=== PATIENT | male | born 1955 | race Caucasian/White ===

== ENCOUNTER → 2017-08-10 | Outpatient (CLI) | payer OTHER ==
[~2017-08-10] MED LIST: ALD2525 PO; ASCA500 PO; ASPEC325 PO; CHOL400C7 PO; CRG125 PO; DVN80 PO; FISHOIL PO; FLM4 PO; HYDR-1838 PO; MULT-506 PO; VITA400C3 PO
--- NOTE | 2017-08-10 13:45 | DIAGNOSTIC IMAGING REPORT ---
(RENAL)RETROPERITON COMP CLINICAL HISTORY: 62 years-old Male presenting with N40.1 BPH with obstruction/lower urinary tract [id number] TECHNIQUE: Real-time grayscale and limited color Doppler ultrasound imaging of the kidneys and bladder was performed. COMPARISON: None. FINDINGS: Evaluation degraded by patient body habitus. Right kidney: Normal echogenicity. Right kidney measures 13.6 cm. No hydronephrosis. No convincing evidence of calculus or mass. Normal perfusion. Left kidney: Normal echogenicity. Left kidney measures 16.1 cm. No hydronephrosis. Subcentimeter cyst noted at the lower pole. Normal perfusion. Bladder: Trabeculated bladder wall with a focal site of irregular polypoid thickening with internal color Doppler flow. This polypoid mass measures 2.4 x 1.8 x 2.4 cm. Bilateral ureteral jets preserved. Other: Hyperechogenic liver parenchyma indicative of hepatic steatosis. IMPRESSION: 1. Polypoid bladder mass with internal vascular flow highly concerning for neoplasm. Urologic consultation for direct visualization with cystoscopy recommended. 2. No obstruction. 3. Hepatic steatosis. The report will be called/faxed according to standard departmental protocol. Electronically signed by: Jerel Rivera M.D. 08/10/2017 1:44 PM Dictated Date/Time: 08/10/2017 1:41 PM
== END | disposition home or self-care (01) ==
LOC: C.ULTR 12:43
PROVIDERS: ATTEND Urology
DX: N40.1 Benign prostatic hyperplasia with lower urinary tract symptoms (principal); R33.9 Retention of urine, unspecified; N32.9 Bladder disorder, unspecified; K76.0 Fatty (change of) liver, not elsewhere classified

== ENCOUNTER → 2017-08-11 | Outpatient (CLI) | payer OTHER ==
[~2017-08-11] MED LIST changes: +OPTIRAY 320 IV PRN
--- NOTE | 2017-08-11 15:03 | DIAGNOSTIC IMAGING REPORT ---
CT UROGRAM CLINICAL HISTORY: Follow-up abnormal ultrasound. Bladder mass. COMPARISON STUDY: Renal ultrasound dated 08/10/2017. TECHNIQUE: Before and following the IV administration of 120 cc of Optiray 320, CT urogram of the abdomen and pelvis is performed from the lung bases to the proximal femora. Images are reviewed in the axial, sagittal, and coronal planes. IV contrast was administered without complication. A dose lowering technique was utilized adhering to the principles of ALARA. The examination is degraded by large body habitus, and by streak artifact from the body wall abutting the CT gantry. CT DOSE: 2527.74 mGycm FINDINGS: Lung bases: The heart is normal in size and without pericardial effusion. The lung bases are clear. There is a small hiatal hernia. Liver: The contrast-enhanced liver is enlarged, measuring 22 cm in length. The liver demonstrates diffusely diminished attenuation consistent with hepatic steatosis. Fatty sparing is seen adjacent to gallbladder fossa. Calcified granulomas are noted in the right hepatic lobe. There is no intrahepatic biliary ductal dilatation. The hepatic veins and portal veins are patent. Gallbladder: Unremarkable. Spleen: Normal in size and attenuation. Pancreas: Unremarkable. Adrenal glands: Unremarkable. Kidneys and ureters: The contrast enhanced kidneys are normal in size and without hydronephrosis. There are no renal calculi identified on the unenhanced images. The kidneys enhance and excrete symmetrically. There is no enhancing renal cortical mass lesion identified. A partially exophytic subcentimeter cortical hypodensity arising from the interpolar right kidney likely represents a cyst but is too small for definitive characterization. 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 There is no evidence of urothelial lesion within the renal pelvis bilaterally or along the course of either ureter. Abdominal vasculature: The abdominal aorta is normal in course and caliber noting mild atherosclerotic calcification. Bowel: The small bowel and colon are normal in course and caliber. The appendix is well-visualized and normal. Peritoneum: There is no intraperitoneal free air or abdominal ascites. There is a fat-containing umbilical hernia. Lymphadenopathy: None. Pelvic viscera: The prostate gland is mildly enlarged and heterogeneous, measuring 5.4 cm in transverse diameter. The bladder is distended. The bladder wall appears thickened and trabeculated consistent with chronic outlet obstruction. Asymmetric posterior bladder wall thickening suggested. There is a 2.7 cm focus of nodularity seen within the posterior base of the bladder on axial image #117. Skeletal structures: The skeletal structures are osteopenic. There is mild to moderate lumbosacral spondylosis. Sclerotic change is noted in the sacroiliac joints and pubic symphysis. No lytic or blastic lesions are seen. IMPRESSION: 1. There is prostatomegaly with evidence of chronic bladder outlet obstruction. 2. Asymmetric posterior bladder wall thickening is suggested, and there is a 2.7 cm focus of intraluminal nodularity seen at the posterior base of the bladder. This is located at the top of the prostate gland, and could represent median lobe hypertrophy versus a urothelial neoplasm. Correlation with cystoscopy is recommended. 3. There is no enhancing renal cortical mass, and no evidence of urothelial lesion involving the renal pelvis bilaterally or the ureters. 4. 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 5. No renal calculi are identified. 6. Hepatomegaly and severe hepatic steatosis. 7. Additional findings as above. Electronically signed by: Tj Anderson M.D. 08/11/2017 3:01 PM Dictated Date/Time: 08/11/2017 2:41 PM
== END | disposition home or self-care (01) ==
LOC: C.CTS 13:02
PROVIDERS: ATTEND Nurse Practitioner Family
DX: N32.89 Other specified disorders of bladder (principal)

== ENCOUNTER → 2017-08-13 | Outpatient (CLI) | payer OTHER ==
[~2017-08-13] MED LIST changes: +ADAL40KI SQ; +ASPI81TA28 PO; +CARV12.5 PO; +DUTA0.5C PO; +FIBER PO; +LOSA1TAB38 PO; +METF1TAB53 PO; -OPTIRAY 320 IV PRN; +SPIR1TAB72 PO; +TAMS0.4C38 PO
[2017-08-13 12:31] LABS: BLOOD UREA NITROGEN 12 mg/dl (7-18); BUN/CREATININE RATIO 16.6 (10-20); CREATININE 0.73 mg/dl (0.60-1.40)
== END | disposition home or self-care (01) ==
LOC: C.LAB 10:26
PROVIDERS: ATTEND Nurse Practitioner Family
DX: N32.89 Other specified disorders of bladder (principal)

== ENCOUNTER 2017-09-02 10:55 | Day surgery (SDC) | payer OTHER ==
[2017-08-16 14:49] VITALS: BMI 46.0
--- NOTE | 2017-08-16 15:09 | PAT Medication Instructions ---
Service Date Aug 16, 2017. Current Home Medication List Adalimumab (Humira Pen), 40 MG SQ Q2 WK Aspirin (Aspirin Ec), 81 MG PO QAM Carvedilol (Coreg), 12.5 MG PO QAM Dutasteride (Avodart), 0.5 MG PO QAM Fiber Laxative (Fiber Laxative), 1 TAB PO QAM Hctz/Spironolactone (Spironolactone/Hydrochlor 25-25 mg), 1 TAB PO QAM Losartan Potassium (Cozaar), 100 MG PO QAM Metformin Hcl (Glucophage Ext Rel), 1,000 MG PO BID Multivitamin (Multivitamin), 1 TAB PO QAM Tamsulosin Hcl (Flomax), 0.4 MG PO QAM Medication Instructions For Your Scheduled Surgery - Continue as directed: Adalimumab (Humira Pen), 40 MG SQ Q2 WK - Hold the following medications 10 days prior to surgery per surgeon's instructions: Aspirin (Aspirin Ec), 81 MG PO QAM - Hold the following medications 48 hours prior to surgery: Metformin Hcl (Glucophage Ext Rel), 1,000 MG PO BID - Hold the following medications the morning of surgery: Fiber Laxative (Fiber Laxative), 1 TAB PO QAM Hctz/Spironolactone (Spironolactone/Hydrochlor 25-25 mg), 1 TAB PO QAM Losartan Potassium (Cozaar), 100 MG PO QAM Multivitamin (Multivitamin), 1 TAB PO QAM - Take the following medications the morning of surgery with a sip of water OTHERWISE NOTHING TO EAT OR DRINK AFTER MIDNIGHT: Tamsulosin Hcl (Flomax), 0.4 MG PO QAM Carvedilol (Coreg), 12.5 MG PO QAM Dutasteride (Avodart), 0.5 MG PO QAM If you have any questions please call us at [phone] or [phone] or [phone]
--- NOTE | 2017-08-16 16:07 | DIAGNOSTIC IMAGING REPORT ---
TWO VIEW CHEST CLINICAL HISTORY: Preoperative examination. FINDINGS: PA and lateral chest radiographs are obtained. No prior studies are available for comparison at the time of dictation. The cardiomediastinal silhouette is unremarkable. The lungs and pleural spaces are clear. There is no pneumothorax. The skeletal structures are osteopenic. Degenerative change and hyperkyphosis are noted in the thoracic spine. IMPRESSION: No active disease in the chest. Electronically signed by: Tj Anderson M.D. 08/16/2017 4:05 PM Dictated Date/Time: 08/16/2017 4:05 PM
[2017-08-16 16:09] LABS: BASO % 0.2 %; BASO ABS # 0.02 K/uL (0-0.2); COMPLETE YES; EOS % 4.5 %; HEMATOCRIT 37.8 % (42-52); IG% 0.4 %; LYMPH % 23.1 %; LYMPH ABS # 2.11 K/uL (1.2-3.4); MEAN CORPUSCULAR HEMOGLOBIN 31.9 pg (25-34); MEAN CORPUSCULAR HGB CONC 35.4 g/dl (32-36); MEAN PLATELET VOLUME 9.5 fL (7.4-10.4); MONO % 6.7 %; NEUT % 65.1 %; PLATELET COUNT 223 K/uL (130-400); WHITE BLOOD COUNT 9.14 K/uL (4.8-10.8)
[2017-08-16 16:15] LABS: URINE APPEARANCE CLEAR (CLEAR); URINE BILIRUBIN NEG (NEG); URINE COLOR YELLOW; URINE EPITHELIAL CELL AUTO 0-5 /lpf (0-5); URINE NITRITE NEG (NEG); URINE PH 6.5 (4.5-7.5); URINE SPECIFIC GRAVITY 1.021 (1.000-1.030); UROBILINOGEN NEG (NEG)
[2017-08-16 16:25] LABS: MANUAL MICROSCOPIC REQUIRED? NO; REVIEW REQ? NO
[2017-08-16 16:40] LABS: BUN/CREATININE RATIO 18.9 (10-20); CALCIUM 9.3 mg/dl (8.5-10.1); CREATININE 0.75 mg/dl (0.60-1.40)
[~2017-09-02] VITALS: Ht 182.9 cm; Wt 153.0 kg
[~2017-09-02 10:55] MED LIST changes: -ALD2525 PO; -ASCA500 PO; -ASPEC325 PO; -CHOL400C7 PO; +CIPROFLOXACIN / D5W 400 MG IV SCH; -CRG125 PO; +DEXAMETHASONE SOD INJ 4 MG/ML VIAL ONE; -DVN80 PO; +FENTANYL CITRATE INJ 50 MCG/1 ML 2 ML VIAL ONE; -FISHOIL PO; -FLM4 PO; -HYDR-1838 PO; +LACTATED RINGER'S 1000ML 1,000 ML IV SCH; +LIDOCAINE HCL 2% 2 ML VIAL (20MG/ML) ONE; +MIDAZOLAM HCL 1 MG/ML 2ML VIAL ONE; +ONDANSETRON INJ 2 MG/ML 2 ML VIAL ONE; +PROPOFOL IV EMULSION 10 MG/ML 20 ML VIAL IV ONE; +SUCCINYLCHOLINE CHLORIDE 20 MG/ML 10 ML VIAL IV ONE; -VITA400C3 PO
[2017-09-02 11:15] VITALS: BP 157/73; PULSE 54; TEMP 36.9; O2SAT 96; Ht 182.9 cm; Wt 153.0 kg
[2017-09-02] MEDS ORDERED: NITR1CAP16 PO (12:06)
--- NOTE | 2017-09-02 13:18 | History & Physical Bridge Note ---
H&P Re-Evaluation Bridge Note: I have examined the patient, reviewed the History & Physical and in the interval since the performance of the History & Physical I have noted the following changes of clinical significance: No changes noted
[2017-09-02] MEDS ORDERED: LABETALOL HCL IV 5 MG/ML 20ML IV PRN (14:00)
[2017-09-02] MEDS ORDERED: FLUMAZENIL 0.1 MG/1 ML 10 ML VIAL IV PRN (14:00)
[2017-09-02] MEDS ORDERED: NALOXONE HCL 0.4 MG/1 ML VIAL/CARP IV PRN (14:00)
[2017-09-02] MEDS ORDERED: ONDANSETRON INJ 2 MG/ML 2 ML VIAL IV PRN (14:00)
[2017-09-02] MEDS ORDERED: PROMETHAZINE HCL INJ 12.5 MG in SODIUM CHLORIDE 0.9% 50ML 50 ML IV PRN (14:00)
[2017-09-02] MEDS ORDERED: EpHEDrine SULFATE INJ 50 MG/ML AMP IV PRN (14:00)
[2017-09-02] MEDS ORDERED: ATROPINE SULFATE 0.1 MG/ML 5ML SYR IV PRN (14:00)
[2017-09-02] MEDS ORDERED: FENTANYL CITRATE INJ 50 MCG/1 ML 2 ML VIAL IV PRN (14:00)
[2017-09-02] MEDS ORDERED: OXYC-57 PO (14:24)
[2017-09-02] MEDS ORDERED: PHEN-876 PO (14:24)
--- NOTE | 2017-09-02 14:26 | Discharge Instructions ---
Discharge Instructions Date of Service Sep 02, 2017. Visit Reason for Visit: Bladder Lesion Discharge Discharge Diagnosis / Problem: abnormal bladder mucosa Discharge Goals Goal(s): Therapeutic intervention Activity Recommendations Activity Limitations: resume your previous activity Exercise/Sports Limitations: as tolerated May Resume Sexual Activity: after one week Shower/Bathe: tomorrow Driving or Machine Use: resume 1 day after discharge Anesthesia . Post Anesthesia Instructions: If you have had General Anesthesia or IV Sedation: * Do not drive today. * Resume driving when surgeon permits. * Do not make important decisions or sign legal documents today. * Call surgeon for: 1. Temperature elevations greater than 101 degrees F. 2. Uncontrollable pain. 3. Excessive bleeding. 4. Persistent nausea and vomiting. 5. Medication intolerance (nausea, vomiting or rash). * For nausea and vomiting use only clear liquids such as: tea, soda, bouillon until nausea subsides, then gradually increase diet as tolerated. * If you have any concerns or questions, call your surgeon's office. If physician is unavailable and it is an emergency, call 911 or go to the nearest emergency room. . Diet Recommendations Recommended Home Diet: resume previous diet Procedures Procedures Performed: Transurethral Resection Bladder Tumor Pending Studies Studies pending at discharge: no Medical Emergencies . Who to Call and When: Medical Emergencies: If at any time you feel your situation is an emergency, please call 911 immediately. . Non-Emergent Contact Non-Emergency issues call your: Urologist Call Non-Emergent contact if: temperature is above 101.5, your pain is not controlled . . "Provider Documentation" section prepared by Edmond Dunn. . [place] Drug Monitoring Program Search Results: patient reviewed within database
[2017-09-02] MEDS ORDERED: OXYCODONE/ACETAMINOPHEN 5-325 TAB PO PRN (14:30)
--- NOTE | 2017-09-02 14:40 | [facility] Operative Report ---
Operative Report Operative Date Sep 02, 2017. 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 Edmond Dunn Radiator Mechanic Surgeon(s) None Estimated Blood Loss 0mL Findings Cystoscopy showed a normal anterior urethra. Prostatic fossa was obstructing with kissing lateral lobes and a very elevated median lobe. Bladder showed 1-2 + trabeculation with cellules and some erythematous cobblestone-like mucosa on the trigone and both ureteral orifices were effluxing clear urine. Specimens Specimen A. Bladder Biopsy Drains none Anesthesia Gen. Complication(s) None Disposition Recovery Room / PACU Indications Patient is a 62-year-old white male who on cystoscopy for evaluation prior to a TURP several have some abnormal bladder mucosa that was somewhat concerning for carcinoma in situ is being brought in now for bladder biopsies and fulguration Description of Procedure Patient is brought to the operating suite. After the induction of adequate general anesthetic and appropriate timeout patient was placed in the dorsal lithotomy position. Lower abdomen and genitalia were prepped with Hibiclens draped in the sterile fashion. Next using a 22 Amharic cystoscopy for routine cystoscopic exam was performed with the above-noted findings with 30 and 70 lenses. Next the fossa navicularis was dilated with meatal dilators. Using cold cup biopsy forceps the abnormal mucosa was biopsied 3 and then the area was fulgurated for hemostasis. Final view revealed no bleeding from the resection sites. Both ureteral orifices were effluxing clear urine. Patient's bladder was then drained and cystoscope and sheath removed. All needle sponges counts are correct at the end of the case. Patient tolerated the procedure well and was taken to the recovery room in stable condition I attest to the content of the Intraoperative Record and any orders documented therein. Any exceptions are noted below.
--- NOTE | 2017-09-02 14:57 | Anesthesiology Progress Note ---
Anesthesia Post Op Note Date & Time Sep 02, 2017 at 14:57 Vital Signs Pain Intensity: 0 Vital Signs Past 12 Hours Date Time Temp Pulse Resp B/P (MAP) Pulse Ox O2 Delivery O2 Flow Rate FiO2 09/02/17 14:22 36 51 16 155/86 98 Mask 15 09/02/17 11:15 36.9 54 20 157/73 (101) 96 Room Air Notes Mental Status: alert / awake / arousable, participated in evaluation Pt Amnestic to Procedure: Yes Nausea / Vomiting: adequately controlled Pain: adequately controlled Airway Patency, RR, SpO2: stable & adequate BP & HR: stable & adequate Hydration State: stable & adequate Anesthetic Complications: no major complications apparent
[2017-09-02 15:05] VITALS: BP 128/68; PULSE 53; TEMP 36.6; O2SAT 98
[2017-09-02 15:35] VITALS: BP 142/54; PULSE 59; TEMP 36.6; O2SAT 98
[2017-09-02 16:05] VITALS: BP 141/63; PULSE 54; TEMP 36.5; O2SAT 98
[2017-09-16] MEDS ORDERED: CIPR1TAB11 PO (10:08)
[2017-09-16] MEDS ORDERED: SACC250C11 PO (10:08)
== END 2017-09-02 16:15 | disposition home or self-care (01) ==
LOC: C.ACU 10:55
PROVIDERS: ATTEND Urology
DX: D49.4 Neoplasm of unspecified behavior of bladder (principal); N40.1 Benign prostatic hyperplasia with lower urinary tract symptoms; N13.8 Other obstructive and reflux uropathy; I10 Essential (primary) hypertension; E11.9 Type 2 diabetes mellitus without complications; E78.5 Hyperlipidemia, unspecified; G47.33 Obstructive sleep apnea (adult) (pediatric); E66.01 Morbid (severe) obesity due to excess calories; Z68.42 Body mass index [BMI] 45.0-49.9, adult; Z79.82 Long term (current) use of aspirin; Z88.1 Allergy status to other antibiotic agents; Z88.0 Allergy status to penicillin; Z90.89 Acquired absence of other organs; Z98.890 Other specified postprocedural states; Z87.891 Personal history of nicotine dependence; Z83.3 Family history of diabetes mellitus; Z80.6 Family history of leukemia; Z80.42 Family history of malignant neoplasm of prostate

== ENCOUNTER → 2017-09-23 | Outpatient (CLI) | payer OTHER ==
[~2017-09-23] MED LIST changes: +CIPR1TAB11 PO; -CIPROFLOXACIN / D5W 400 MG IV SCH; -DEXAMETHASONE SOD INJ 4 MG/ML VIAL ONE; -FENTANYL CITRATE INJ 50 MCG/1 ML 2 ML VIAL ONE; -LACTATED RINGER'S 1000ML 1,000 ML IV SCH; -LIDOCAINE HCL 2% 2 ML VIAL (20MG/ML) ONE; -MIDAZOLAM HCL 1 MG/ML 2ML VIAL ONE; -ONDANSETRON INJ 2 MG/ML 2 ML VIAL ONE; -PROPOFOL IV EMULSION 10 MG/ML 20 ML VIAL IV ONE; +SACC250C11 PO; -SUCCINYLCHOLINE CHLORIDE 20 MG/ML 10 ML VIAL IV ONE
== END | disposition home or self-care (01) ==
LOC: C.LABSPEC 11:03
PROVIDERS: ATTEND Nurse Practitioner Adult Health
DX: N39.0 Urinary tract infection, site not specified (principal)

== ENCOUNTER → 2017-10-04 | Day surgery (SDC) | payer OTHER ==
[2017-09-16 10:15] VITALS: BMI 46.0
[~2017-10-04] VITALS: Ht 182.9 cm; Wt 153.0 kg
[~2017-10-04] MED LIST changes: +ATROPINE SULFATE 0.1 MG/ML 5ML SYR IV PRN; +CIPROFLOXACIN / D5W 400 MG IV SCH; +DEXAMETHASONE SOD INJ 4 MG/ML VIAL ONE; +DOCU-94 PO; +EpHEDrine SULFATE 50MG/5ML SYR ONE; +EpHEDrine SULFATE INJ 50 MG/ML AMP IV PRN; +FENTANYL CITRATE INJ 50 MCG/1 ML 2 ML VIAL IV PRN; +FENTANYL CITRATE INJ 50 MCG/1 ML 2 ML VIAL ONE; +GENTAMICIN INJ 80 MG in DEXTROSE 5% 100ML 100 ML IV SCH; +HYDROmorphone INJ 1 MG/ML SYR IV PRN; +LACTATED RINGER'S 1000ML 1,000 ML IV SCH; +LIDOCAINE HCL 2% 2 ML VIAL (20MG/ML) ONE; +MIDAZOLAM HCL 1 MG/ML 2ML VIAL ONE; +NITR-5 PO; +ONDANSETRON INJ 2 MG/ML 2 ML VIAL IV PRN; +ONDANSETRON INJ 2 MG/ML 2 ML VIAL ONE; +OXYC-57 PO; +OXYCODONE/ACETAMINOPHEN 5-325 TAB PO PRN; +PROMETHAZINE HCL INJ 12.5 MG in SODIUM CHLORIDE 0.9% 50ML 50 ML IV PRN; +PROPOFOL IV EMULSION 10 MG/ML 20 ML VIAL IV ONE
[2017-10-04 08:24] VITALS: BP 156/74; PULSE 60; TEMP 36.6; O2SAT 96; Ht 182.9 cm; Wt 153.0 kg
--- NOTE | 2017-10-04 10:55 | Discharge Instructions ---
Discharge Instructions Date of Service Oct 04, 2017. Visit Reason for Visit: Benign Prostatic Hyperplasia Discharge Discharge Diagnosis / Problem: Enlarged prostate Discharge Goals Goal(s): Therapeutic intervention Activity Recommendations Activity Limitations: resume your previous activity Lifting Limitations: gradually increase as tolerated Exercise/Sports Limitations: until after follow-up appointment May Resume Sexual Activity: after two weeks Shower/Bathe: no limitations Driving or Machine Use: resume 3 days after discharge Anesthesia . Post Anesthesia Instructions: If you have had General Anesthesia or IV Sedation: * Do not drive today. * Resume driving when surgeon permits. * Do not make important decisions or sign legal documents today. * Call surgeon for: 1. Temperature elevations greater than 101 degrees F. 2. Uncontrollable pain. 3. Excessive bleeding. 4. Persistent nausea and vomiting. 5. Medication intolerance (nausea, vomiting or rash). * For nausea and vomiting use only clear liquids such as: tea, soda, bouillon until nausea subsides, then gradually increase diet as tolerated. * If you have any concerns or questions, call your surgeon's office. If physician is unavailable and it is an emergency, call 911 or go to the nearest emergency room. . Diet Recommendations Recommended Home Diet: resume previous diet Procedures Procedures Performed: Button Transurethral Resection Prostate Pending Studies Studies pending at discharge: no Medical Emergencies . Who to Call and When: Medical Emergencies: If at any time you feel your situation is an emergency, please call 911 immediately. . Non-Emergent Contact Non-Emergency issues call your: Urologist Call Non-Emergent contact if: temperature is above 101.5, your pain is not controlled . . "Provider Documentation" section prepared by Edmond Dunn. . [place] Drug Monitoring Program Search Results: patient reviewed within database
--- NOTE | 2017-10-04 11:10 | [facility] Operative Report ---
Operative Report Operative Date Oct 04, 2017. Pre-Operative Diagnosis Benign Prostatic Hyperplasia Post-Operative Diagnosis Benign Prostatic Hyperplasia Procedure(s) Performed Button Transurethral Resection Prostate Surgeon Mona Diesel Engine Operator Surgeon(s) none Estimated Blood Loss 15cc Findings Cystoscopic exam showed a normal anterior urethra prostatic fossa was obstructing with kissing lateral lobes and very elevated median lobe that was a ball-valve median lobe bladder showed 1-2+ trabeculation both ureteral orifices were effluxing clear urine Specimens None per surgeon Drains 20 Romanian Flores catheter Anesthesia Gen. Complication(s) None Disposition Recovery Room / PACU Indications Patient is a 62-year-old white male with lower urinary tract symptoms was failed maximal medical therapy is currently doing CIC because he does not empty his bladder he is being brought in for transurethral vaporization of the prostate Description of Procedure After the induction of an adequate general anesthetic and appropriate timeout patient was placed in the dorsal lithotomy position. Lower abdomen and genitalia were prepped with Hibiclens and draped in a sterile fashion. Next using a 20 Romanian scope routine cystoscopy exam was performed the above-noted findings with the 30 and 70 lenses. Next the fossa navicularis was dilated to 28 Romanian with [place] sounds. Next a 24 Romanian resectoscope was inserted under direct vision per urethra into the bladder. Plasma button was used to vaporize the prostatic tissue from the bladder neck to verumontanum from 1:00 to 6:00 clockwise 11:00 to 6:00 counterclockwise strip between 11 and 1 at the bladder neck was left untouched to help prevent bladder neck contractions.care was taken to avoid injury to the ureteral orifices. After creating a wide-open prostatic fossa bladder neck was incised with a Wilkerson knife at 5 and 7:00 to open up the bladder neck even wider. Bladder was inspected there was no bleeding from the bladder both ureteral orifices were effluxing clear urine. There were no tissue fragments in the bladder. Any bleeding points in the prostatic fossa was vaporized with the plasma button. Patient's bladder was then filled resection scope and sheath were removed patient voided with a very strong stream on Cred maneuver. A 20 Romanian Flores cath inserted per urethra in the bladder and hooked to gravity drainage. All needle sponge and some counts are correct at the end of the case. Flores catheter was irrigated with sterile saline until clear. Patient tolerated the procedure was taken to the recovery room in stable condition. I attest to the content of the Intraoperative Record and any orders documented therein. Any exceptions are noted below.
--- NOTE | 2017-10-04 11:22 | Anesthesiology Progress Note ---
Anesthesia Post Op Note Date & Time Oct 04, 2017 at 11:22 Vital Signs Pain Intensity: 0 Vital Signs Past 12 Hours Date Time Temp Pulse Resp B/P (MAP) Pulse Ox O2 Delivery O2 Flow Rate FiO2 10/04/17 11:20 63 12 126/72 96 Room Air 10/04/17 11:10 66 21 121/55 100 Oxymask 10 10/04/17 11:00 62 21 126/52 95 Oxymask 10 10/04/17 10:50 36.4 61 20 122/51 95 Oxymask 10 10/04/17 08:24 36.6 60 20 156/74 (101) 96 Room Air Notes Mental Status: alert / awake / arousable, participated in evaluation Pt Amnestic to Procedure: Yes Nausea / Vomiting: adequately controlled Pain: adequately controlled Airway Patency, RR, SpO2: stable & adequate BP & HR: stable & adequate Hydration State: stable & adequate Anesthetic Complications: no major complications apparent Awake, doing well, no complaints. VSS
[2017-10-04 11:34] VITALS: BP 140/56; PULSE 62; TEMP 36.4; O2SAT 96
[2017-10-04 12:02] VITALS: BP 129/56; PULSE 61; O2SAT 99
[2017-10-04 12:35] VITALS: BP 140/59; PULSE 60; TEMP 36.4; O2SAT 95
== END | disposition home or self-care (01) ==
LOC: C.ACU 07:36
PROVIDERS: ATTEND Urology
DX: N40.1 Benign prostatic hyperplasia with lower urinary tract symptoms (principal); N13.8 Other obstructive and reflux uropathy; Z87.891 Personal history of nicotine dependence; Z79.82 Long term (current) use of aspirin; Z79.899 Other long term (current) drug therapy

== ENCOUNTER 2017-10-13 18:26 | Inpatient (IN) | payer OTHER ==
[~2017-10-13] VITALS: Ht 182.9 cm; Wt 151.8 kg
[~2017-10-13 18:26] MED LIST changes: -ATROPINE SULFATE 0.1 MG/ML 5ML SYR IV PRN; -CIPR1TAB11 PO; -CIPROFLOXACIN / D5W 400 MG IV SCH; -DEXAMETHASONE SOD INJ 4 MG/ML VIAL ONE; -DOCU-94 PO; -EpHEDrine SULFATE 50MG/5ML SYR ONE; -EpHEDrine SULFATE INJ 50 MG/ML AMP IV PRN; -FENTANYL CITRATE INJ 50 MCG/1 ML 2 ML VIAL IV PRN; -FENTANYL CITRATE INJ 50 MCG/1 ML 2 ML VIAL ONE; -GENTAMICIN INJ 80 MG in DEXTROSE 5% 100ML 100 ML IV SCH; -HYDROmorphone INJ 1 MG/ML SYR IV PRN; -LACTATED RINGER'S 1000ML 1,000 ML IV SCH; -LIDOCAINE HCL 2% 2 ML VIAL (20MG/ML) ONE; -MIDAZOLAM HCL 1 MG/ML 2ML VIAL ONE; -ONDANSETRON INJ 2 MG/ML 2 ML VIAL IV PRN; -ONDANSETRON INJ 2 MG/ML 2 ML VIAL ONE; -OXYCODONE/ACETAMINOPHEN 5-325 TAB PO PRN; -PROMETHAZINE HCL INJ 12.5 MG in SODIUM CHLORIDE 0.9% 50ML 50 ML IV PRN; -PROPOFOL IV EMULSION 10 MG/ML 20 ML VIAL IV ONE
[2017-10-13] MEDS ORDERED: SODIUM CHLORIDE 0.9% 1000ML 1,000 ML IV STA (18:42)
[2017-10-13] MEDS ORDERED: CEFTRIAXONE SOD INJ 1 GM ADDVIAL IV STA (18:48)
--- NOTE | 2017-10-13 18:53 | EMERGENCY ROOM VISIT NOTE ---
History Report prepared by Scott: Lilo Hernandes Under the Supervision of: Dr. Tanna Soto D.O. First contact with patient: 18:33 Chief Complaint: URINARY SYMPTOMS Stated Complaint: DARK URINE,FEVER,CHILLS,CONFUSION Nursing Triage Summary: patient just had a button turp on the 04 of october. today having urinary symptoms with fever. called the office and was told to come to ER for evaluation History of Present Illness The patient is a 62 year old male who presents to the Emergency Room with complaints of urinary symptoms beginning this morning. The patient notes chills , feeling shaky, a fever of 99.8 degrees Fahrenheit, and dark cloudy urine. The patient had a turp done for an enlarged prostate on the 04 of October. He notes using a cath today which revealed cloudy urine with some blood. The patient uses a cath as needed since his surgery. The patient was put on Cipro post op which wasn't working for him so he was put on Macrodantin. The patient stopped taking Macrodantin two days ago. Per , the patient has been confused for the past two days. The patient called his PCP today who referred him to come to the ED. The patient also reports some middle back tightness. He has a follow-up with his urologist on Wednesday. The patient is allergic to Bactrim. Pt denies headache, change in vision, chest pain, shortness of breath, nausea, vomiting, diarrhea, pain with urination, and melena. Source of History: patient Onset: this morning Position: other (urinary) Quality: other (symptoms) Associated Symptoms: + fevers, + chills, + back pain, + urinary symptoms, No headache, No chest pain, No SOB, No nausea, No vomiting Review of Systems See HPI for pertinent positives & negatives. A total of 10 systems reviewed and were otherwise negative. Past Medical & Surgical Medical Problems: (1) Enlarged prostate (2) Enlarged prostate (3) SIRS (systemic inflammatory response syndrome) (4) UTI (urinary tract infection) Surgical Problems: (1) S/P TURP Family History Patient reports no known family medical history. Social History Smoking Status: Never Smoker Marital Status: Housing Status: lives with significant other Current/Historical Medications Scheduled Adalimumab (Humira Pen), 40 MG SQ Q2 WK Aspirin (Aspirin Ec), 81 MG PO QAM Carvedilol (Coreg), 12.5 MG PO QAM Dutasteride (Avodart), 0.5 MG PO QAM Fiber Laxative (Fiber Laxative), 1 TAB PO QAM Hctz/Losartan (Hyzaar 25MG/100MG), 1 TAB PO DAILY Hctz/Spironolactone (Spironolactone/Hydrochlor 25-25 mg), 1 TAB PO QAM Metformin Hcl (Glucophage Ext Rel), 1,000 MG PO BID Multivitamin (Multivitamin), 1 TAB PO QAM Saccharomyces Boulardii (Probiotic), 1 CAP PO BID Tamsulosin Hcl (Flomax), 0.4 MG PO QAM Allergies Coded Allergies: Sulfamethoxazole w/Trimethoprim (Verified Allergy, Mild, RASH, ITCH, ) Penicillins (Verified Allergy, Unknown, RASH, 10/13/17) Physical Exam Vital Signs Date Time Temp Pulse Resp B/P (MAP) Pulse Ox O2 Delivery O2 Flow Rate FiO2 10/13/17 23:11 37.3 71 18 119/47 94 Room Air 10/13/17 22:35 74 18 132/59 95 Room Air 10/13/17 21:55 38.8 74 18 143/67 95 Room Air 10/13/17 20:50 78 10/13/17 20:49 80 18 146/57 96 Room Air 10/13/17 20:18 38.6 76 20 164/110 96 Room Air 10/13/17 18:31 36.7 65 20 138/74 97 Room Air Physical Exam GENERAL: alert, well appearing, well nourished, no distress, non-toxic EYE EXAM: normal conjunctiva, PERRL and EOM's grossly intact OROPHARYNX: no exudate, no erythema, lips, buccal mucosa, and tongue normal and mucous membranes are moist NECK: supple, no nuchal rigidity, no adenopathy, non-tender LUNGS: Clear to auscultation. Normal chest wall mechanics HEART: no murmurs, S1 normal and S2 normal ABDOMEN: abdomen soft, non-tender, normo-active bowel sounds, no masses, no rebound or guarding. BACK: Back is symmetrical on inspection and there is no deformity, no midline tenderness, no CVA tenderness. No reproducible lower back tenderness. SKIN: no rashes and no bruising UPPER EXTREMITIES: upper extremities are grossly normal. LOWER EXTREMITIES: No pitting edema. NEURO EXAM: Normal sensorium, cranial nerves II-XII grossly intact, normal speech, no gross weakness of arms, no gross weakness of legs. Medical Decision & Procedures ER Provider Diagnostic Interpretation: Radiology results have been interpreted by the radiologist and reviewed by me. CT SCAN OF THE BRAIN WITHOUT IV CONTRAST FINDINGS: Brain parenchyma: The brain parenchyma is normal in appearance. There is no hemorrhage, mass effect, or evidence of acute territorial ischemia by CT criteria. Coleman-white matter is preserved. No extra-axial fluid collection is seen. Ventricles, sulci, cisterns: Normal in configuration. Intracranial vasculature: There is mild atherosclerotic calcification of the cavernous carotid arteries. Calvarium: Unremarkable. Sinuses and mastoids: Mild mucosal thickening and a small retention cyst are seen in the right maxillary antrum. The remaining visualized paranasal sinuses are clear. The mastoid air cells are well pneumatized. Orbits: The bony orbits are grossly intact. IMPRESSION: There is no hemorrhage, mass effect, or evidence of acute territorial ischemia by CT criteria. Electronically signed by: Tj Anderson M.D. CT SCAN OF THE ABDOMEN AND PELVIS WITH IV CONTRAST FINDINGS: Lung bases: The heart is mildly enlarged and without pericardial effusion. Evaluation of the lung bases is degraded by motion artifact. There is dependent atelectasis. No airspace consolidation is seen typical for pneumonia and there is no pleural effusion. There is a small hiatal hernia. Liver: The contrast-enhanced liver is enlarged, measuring 25.8 cm in length. The liver demonstrates diffusely diminished attenuation consistent with severe hepatic steatosis. There is no intrahepatic biliary ductal dilatation. The hepatic veins and portal veins are patent. Scattered calcified granulomas are noted. Gallbladder: Unremarkable. Spleen: The spleen is enlarged, measuring 14.6 cm in length. Pancreas: Mildly atrophic and grossly unremarkable. Adrenal glands: Unremarkable. Kidneys: The contrast enhanced kidneys are normal in size and without hydronephrosis. There is slightly heterogeneous perfusion of the left kidney with nonspecific left-sided perinephric stranding. Mild heterogeneity is also seen in the right kidney. Abdominal vasculature: The abdominal aorta is normal in course and caliber noting scattered foci of atherosclerotic calcification. Bowel: There is moderate colonic fecal retention. No bowel obstruction is seen. The appendix is well-visualized and normal. Peritoneum: There is no intraperitoneal free air or abdominal ascites. There is a fat-containing umbilical hernia. Lymphadenopathy: Scattered shotty retroperitoneal and iliac chain lymph nodes are likely on a reactive basis. These are not pathologically enlarged by size criteria. Pelvic viscera: The prostate gland is mildly enlarged and heterogeneous, measuring 4.8 cm in transverse diameter. There is median lobe hypertrophy. A central filling defect is consistent with previous TURP. The bladder wall is markedly thickened. Small foci of gas are present in the bladder lumen. Skeletal structures: There is moderate lumbosacral spondylosis. Sclerotic change is seen in the sacroiliac joints. No lytic or blastic lesions are seen. IMPRESSION: 1. The prostate gland is enlarged and heterogeneous. A central defect is consistent with previous TURP. 2. The bladder wall is markedly thickened. Small foci of gas are present within the bladder lumen. This may be related to recent instrumentation. Correlate clinically and with urinalysis for evidence of cystitis. 3. The kidneys are normal in size and without hydronephrosis. There is heterogeneity of both kidneys, left greater than right with left-sided perinephric stranding. The appearance is nonspecific and could be seen in the setting of bilateral pyelonephritis. Clinical correlation will be essential. 4. Hepatomegaly and severe hepatic steatosis. 5. Splenomegaly. 6. Moderate constipation. No bowel obstruction is seen. 7. Additional findings as above. Electronically signed by: Tj Anderson M.D. Laboratory Results Test 10/13/17 19:20 10/13/17 20:30 Urine Color YELLOW Urine Appearance CLOUDY (CLEAR) Urine pH 6.5 (4.5-7.5) Urine Specific Lowber 1.010 (1.000-1.030) Urine Protein NEG (NEG) Urine Glucose (UA) 2+ (NEG) Urine Ketones NEG (NEG) Urine Occult Blood 3+ (NEG) Urine Nitrite POS (NEG) Urine Bilirubin NEG (NEG) Urine Urobilinogen NEG (NEG) Urine Leukocyte Esterase MODERATE (NEG) Urine WBC (Auto) 10-30 /hpf (0-5) Urine RBC (Auto) 5-10 /hpf (0-4) Urine Hyaline Casts (Auto) 1-5 /lpf (0-5) Urine Epithelial Cells (Auto) 0-5 /lpf (0-5) Urine Bacteria (Auto) 4+ (NEG) Immature Granulocyte % (Auto) 0.3 % White Blood Count 14.17 K/uL (4.8-10.8) Red Blood Count 4.73 M/uL (4.7-6.1) Hemoglobin 14.7 g/dL (14.0-18.0) Hematocrit 42.7 % (42-52) Mean Corpuscular Volume 90.3 fL (80-100) Mean Corpuscular Hemoglobin 31.1 pg (25-34) Mean Corpuscular Hemoglobin Concent 34.4 g/dl (32-36) Platelet Count 150 K/uL (130-400) Mean Platelet Volume 9.8 fL (7.4-10.4) Neutrophils (%) (Auto) 88.5 % Lymphocytes (%) (Auto) 5.7 % Monocytes (%) (Auto) 4.7 % Eosinophils (%) (Auto) 0.7 % Basophils (%) (Auto) 0.1 % Neutrophils # (Auto) 12.54 K/uL (1.4-6.5) Lymphocytes # (Auto) 0.81 K/uL (1.2-3.4) Monocytes # (Auto) 0.66 K/uL (0.11-0.59) Eosinophils # (Auto) 0.10 K/uL (0-0.5) Basophils # (Auto) 0.02 K/uL (0-0.2) Immature Granulocyte # (Auto) 0.04 K/uL (0.00-0.02) Globulin 4.6 gm/dl (2.5-4.0) Albumin/Globulin Ratio 0.8 (0.9-2) Chemistry Specimen Hemolysis Laboratory results per my review. Medications Administered Medications (Trade) Dose Ordered Sig/Sherri Route Start Time Stop Time Status Last Admin Dose Admin Sodium Chloride 1,000 ml @ 999 mls/hr Q1H1M STAT IV 10/13/17 18:42 10/13/17 19:42 DC 10/13/17 20:15 999 MLS/HR Ceftriaxone Sodium (Rocephin Inj) 1 gm NOW STAT IV 10/13/17 18:48 10/13/17 18:49 DC 10/13/17 20:15 1 GM Sodium Chloride 2,000 ml @ 999 mls/hr Q2H1M STAT IV 10/13/17 21:33 10/13/17 23:33 DC 10/13/17 21:33 999 MLS/HR Sodium Chloride 1,000 ml @ 125 mls/hr Q8H IV 10/13/17 23:00 10/14/17 14:59 DC 10/14/17 08:00 125 MLS/HR ECG Indication: other (urinary symptoms, fever) Rate (beats per minute): 79 Rhythm: normal sinus Findings: no acute ischemic change, no ectopy, other (normal axis, normal intervals) ED Course 183: The patient was evaluated in room C5. A complete history and physical exam was performed. 1841: Ordered Sodium Chloride 1000 ml @ 999 mls/hr IV. 1845: Review of EMR shows: most recent urine cultures grew out klebsiella and E. Coli. 1847: Ordered Rocephin Inj 1 gm IV. 2132: Ordered Sodium Chloride 2000 ml @ 999 mls/hr IV. 2236: I updated the patient on his test results. He is agreeable to staying in the hospital. 2251: I reviewed the patient's case with Dr. Corcoran. He will evaluate the patient for further management. Medical Decision Differential Diagnoses include: post-op complication, pyelonephritis, UTI, sepsis, paraprosthetic abscess, proctitis. Patient with urinary tract infection status post TURP having completed his outpatient antibiotics. Patient with recurrent UTIs as stated by family. Patient with mild encephalopathy here likely secondary to infectious etiology. Concern for evolving sepsis. No evidence of additional post procedural complication. Mild gastric and bladder likely from outpatient catheterizing himself. Patient hemodynamically stable throughout. IV antibiotics chosen based on prior urine cultures. Urine culture sent again today and patient given IV fluids. An initial delay in IV fluid resuscitation due to patient being difficult to find IV access on. Patient and family were made aware of all results and need for additional monitoring and evaluation. No additional GI or vascular pathology noted. Patient with no other symptoms to suggest additional infectious etiology. Medication Reconcilliation Current Medication List: was personally reviewed by de Blood Pressure Screening Patient's blood pressure: Elevated blood pressure Blood pressure disposition: Referred to PCP (evaluated by hospitalist) Consults Time Called: 2247 Consulting Physician: Dr. Corcoran Returned Call: 2251 I reviewed the patient's case with Dr. Corcoran. He will evaluate the patient for further management. Impression Primary Impression: Urinary tract infection Additional Impressions: Confusion Sepsis S/P TURP Critical Care I have personally spent greater than 35 minutes of critical care time in the direct management of this patient. This includes bedside care, interpretation of diagnostic studies, and testing, discussion with consultants, patient, and family members, and other required patient management activities. This 35 minutes is in excess of all separately billable procedures. Scribe Attestation The scribe's documentation has been prepared under my direction and personally reviewed by me in its entirety. I confirm that the note above accurately reflects all work, treatment, procedures, and medical decision making performed by me. Departure Information Dispostion Being Evaluated By Hospitalist Edgardo Hanley M.D. (PCP) Patient Instructions My [facility] Problem Qualifiers Primary Impression: Urinary tract infection Urinary tract infection type: acute cystitis Hematuria presence: with hematuria Qualified Codes: N30.01 - Acute cystitis with hematuria Additional Impressions: Sepsis Sepsis type: sepsis due to unspecified organism Qualified Codes: A41.9 - Sepsis, unspecified organism
[2017-10-13] MEDS ORDERED: OPTIRAY 320 IV PRN (19:00)
[2017-10-13] MEDS ORDERED: HYZ/10015 PO (19:11)
[2017-10-13 19:50] LABS: URINE APPEARANCE CLOUDY (CLEAR); URINE BILIRUBIN NEG (NEG); URINE COLOR YELLOW; URINE EPITHELIAL CELL AUTO 0-5 /lpf (0-5); URINE NITRITE POS (NEG); URINE PH 6.5 (4.5-7.5); UROBILINOGEN NEG (NEG); ZZUR CULT IF INDIC CLEAN CATCH YES
[2017-10-13 20:07] LABS: MANUAL MICROSCOPIC REQUIRED? NO; REVIEW REQ? NO
[2017-10-13 20:40] LABS: BASO % 0.1 %; BASO ABS # 0.02 K/uL (0-0.2); COMPLETE YES; EOS % 0.7 %; HEMATOCRIT 42.7 % (42-52); IG% 0.3 %; LYMPH % 5.7 %; LYMPH ABS # 0.81 K/uL (1.2-3.4); MEAN CELL VOLUME 90.3 fL (80-100); MEAN CORPUSCULAR HEMOGLOBIN 31.1 pg (25-34); MEAN CORPUSCULAR HGB CONC 34.4 g/dl (32-36); MEAN PLATELET VOLUME 9.8 fL (7.4-10.4); MONO % 4.7 %; NEUT % 88.5 %; PLATELET COUNT 150 K/uL (130-400); RED BLOOD COUNT 4.73 M/uL (4.7-6.1); WHITE BLOOD COUNT 14.17 K/uL (4.8-10.8)
[2017-10-13 21:13] LABS: ALB/GLOB RATIO 0.8 (0.9-2); BUN/CREATININE RATIO 14.9 (10-20); CALCIUM 9.4 mg/dl (8.5-10.1); CREATININE 0.94 mg/dl (0.60-1.40); POTASSIUM 4.2 mmol/L (3.5-5.1)
[2017-10-13] MEDS ORDERED: SODIUM CHLORIDE 0.9% 1000ML 2,000 ML IV STA (21:33)
--- NOTE | 2017-10-13 21:54 | DIAGNOSTIC IMAGING REPORT ---
CT SCAN OF THE BRAIN WITHOUT IV CONTRAST CLINICAL HISTORY: Change in mental status. COMPARISON STUDY: No priors. TECHNIQUE: Unenhanced axial CT scan of the brain is performed from the vertex to the skull base. A dose lowering technique was utilized adhering to the principles of ALARA. CT DOSE: 3362.25 mGy.cm FINDINGS: Brain parenchyma: The brain parenchyma is normal in appearance. There is no hemorrhage, mass effect, or evidence of acute territorial ischemia by CT criteria. Coleman-white matter is preserved. No extra-axial fluid collection is seen. Ventricles, sulci, cisterns: Normal in configuration. Intracranial vasculature: There is mild atherosclerotic calcification of the cavernous carotid arteries. Calvarium: Unremarkable. Sinuses and mastoids: Mild mucosal thickening and a small retention cyst are seen in the right maxillary antrum. The remaining visualized paranasal sinuses are clear. The mastoid air cells are well pneumatized. Orbits: The bony orbits are grossly intact. IMPRESSION: There is no hemorrhage, mass effect, or evidence of acute territorial ischemia by CT criteria. Electronically signed by: Tj Anderson M.D. 10/13/2017 9:53 PM Dictated Date/Time: 10/13/2017 9:51 PM
--- NOTE | 2017-10-13 22:18 | DIAGNOSTIC IMAGING REPORT ---
CT SCAN OF THE ABDOMEN AND PELVIS WITH IV CONTRAST CLINICAL HISTORY: Back pain. Urinary tract infection. Status post TURP. COMPARISON STUDY: Abdominal CT dated 08/11/2017. TECHNIQUE: Following the IV administration of 94 cc of Optiray 320, CT scan of the abdomen and pelvis is performed from the lung bases to the proximal femora. Images are reviewed in the axial, sagittal, and coronal planes. IV contrast was administered without complication. A dose lowering technique was utilized adhering to the principles of ALARA. The examination is degraded by motion artifact. CT DOSE: Reported separately under the concurrently performed CT scan of the brain. FINDINGS: Lung bases: The heart is mildly enlarged and without pericardial effusion. Evaluation of the lung bases is degraded by motion artifact. There is dependent atelectasis. No airspace consolidation is seen typical for pneumonia and there is no pleural effusion. There is a small hiatal hernia. Liver: The contrast-enhanced liver is enlarged, measuring 25.8 cm in length. The liver demonstrates diffusely diminished attenuation consistent with severe hepatic steatosis. There is no intrahepatic biliary ductal dilatation. The hepatic veins and portal veins are patent. Scattered calcified granulomas are noted. Gallbladder: Unremarkable. Spleen: The spleen is enlarged, measuring 14.6 cm in length. Pancreas: Mildly atrophic and grossly unremarkable. Adrenal glands: Unremarkable. Kidneys: The contrast enhanced kidneys are normal in size and without hydronephrosis. There is slightly heterogeneous perfusion of the left kidney with nonspecific left-sided perinephric stranding. Mild heterogeneity is also seen in the right kidney. Abdominal vasculature: The abdominal aorta is normal in course and caliber noting scattered foci of atherosclerotic calcification. Bowel: There is moderate colonic fecal retention. No bowel obstruction is seen. The appendix is well-visualized and normal. Peritoneum: There is no intraperitoneal free air or abdominal ascites. There is a fat-containing umbilical hernia. Lymphadenopathy: Scattered shotty retroperitoneal and iliac chain lymph nodes are likely on a reactive basis. These are not pathologically enlarged by size criteria. Pelvic viscera: The prostate gland is mildly enlarged and heterogeneous, measuring 4.8 cm in transverse diameter. There is median lobe hypertrophy. A central filling defect is consistent with previous TURP. The bladder wall is markedly thickened. Small foci of gas are present in the bladder lumen. Skeletal structures: There is moderate lumbosacral spondylosis. Sclerotic change is seen in the sacroiliac joints. No lytic or blastic lesions are seen. IMPRESSION: 1. The prostate gland is enlarged and heterogeneous. A central defect is consistent with previous TURP. 2. The bladder wall is markedly thickened. Small foci of gas are present within the bladder lumen. This may be related to recent instrumentation. Correlate clinically and with urinalysis for evidence of cystitis. 3. The kidneys are normal in size and without hydronephrosis. There is heterogeneity of both kidneys, left greater than right with left-sided perinephric stranding. The appearance is nonspecific and could be seen in the setting of bilateral pyelonephritis. Clinical correlation will be essential. 4. Hepatomegaly and severe hepatic steatosis. 5. Splenomegaly. 6. Moderate constipation. No bowel obstruction is seen. 7. Additional findings as above. Electronically signed by: Tj Anderson M.D. 10/13/2017 10:17 PM Dictated Date/Time: 10/13/2017 10:09 PM
[2017-10-13] MEDS ORDERED: ONDANSETRON INJ 2 MG/ML 2 ML VIAL IV PRN (23:15)
[2017-10-13] MEDS ORDERED: MAGNESIUM HYDROXIDE SUSP 30 ML UDC PO PRN (23:15)
[2017-10-13] MEDS ORDERED: ALUMINUM/MAGNESIUM/SIMETH (MAALOX MAX) 30 ML UDC PO PRN (23:15)
[2017-10-13] MEDS ORDERED: POLYETHYLENE (MIRALAX) 17 GM PACK PO PRN (23:15)
[2017-10-13] MEDS ORDERED: ACETAMINOPHEN 325 MG TAB PO PRN (23:15)
[2017-10-13 23:38] VITALS: Ht 182.9 cm; Wt 151.8 kg
--- NOTE | 2017-10-13 23:51 | History and Physical ---
History & Physical Date & Time of Service: Oct 13, 2017 at 23:19 Chief Complaint: Dark Urine,Fever,Chills,Confusion Primary Care Physician: Edgardo Frazier M.D. History of Present Illness Source: patient 62 y/o M Hx HTN, DM II, psoriasis, IGLESIA, BPH, obesity, recurrent UTIs. Pt underwent a TURP 10/04. Presents with fevers, confusion and dysuria. The pt had recently been on Cipro and Macrodantoin for suppression. He is employing intermittent self-catheterization to assess for urinary retention post-op and reports that he has not had significant retention since surgery. He reports fevers throughout the day and his additionally reports that he was confused although he is awake and oriented at the time of admission. A fever was confirmed on arrival to the ER. Initial labs are notable for leukocytosis, hyponatremia, elevated LFTs and an elevated lactic acid. Past Medical/Surgical History 1) HTN 2) Chronic lower extremity edema 3) IGLESIA - uses CPAP nightly 4) Obesity 5) Psoriasis - treated with Humira 6) DM II Surgical Problems: TURP 10/04 Family History Patient reports no known family medical history. Social History Smoking Status: Never Smoker Marital Status: Immunizations History of Influenza Vaccine: N/A History of Tetanus Vaccine?: Yes History of Pneumococcal: No History of Hepatitis B Vaccine: No Allergies Coded Allergies: Sulfamethoxazole w/Trimethoprim (Verified Allergy, Mild, RASH, ITCH, ) Penicillins (Verified Allergy, Unknown, RASH, 10/13/17) Home Medications Scheduled Adalimumab (Humira Pen), 40 MG SQ Q2 WK Aspirin (Aspirin Ec), 81 MG PO QAM Carvedilol (Coreg), 12.5 MG PO QAM Dutasteride (Avodart), 0.5 MG PO QAM Fiber Laxative (Fiber Laxative), 1 TAB PO QAM Hctz/Losartan (Hyzaar 25MG/100MG), 1 TAB PO DAILY Hctz/Spironolactone (Spironolactone/Hydrochlor 25-25 mg), 1 TAB PO QAM Metformin Hcl (Glucophage Ext Rel), 1,000 MG PO BID Multivitamin (Multivitamin), 1 TAB PO QAM Saccharomyces Boulardii (Probiotic), 1 CAP PO BID Tamsulosin Hcl (Flomax), 0.4 MG PO QAM Review of Systems Constitutional: + fever, + chills, + sweats Eyes: No worsening of vision ENT: No hearing loss, No nasal symptoms Respiratory: No cough, No sputum, No wheezing Cardiovascular: No chest pain, No orthopnea, No PND Abdomen: No pain, No nausea, No vomiting Musculoskeletal: No joint pain Genitourinary - Male: + dysuria, No hematuria Neurologic: + weakness, + problem reported (Confusion reported by ), No memory loss, No paralysis Psychiatric: No depression symptoms Endocrine: No fatigue Hematologic / Lymphatic: No abnormal bleeding/bruising Integumentary: No rash Allergic / Immunologic: No environmental allergies Physical Exam Vital Signs Date Time Temp Pulse Resp B/P (MAP) Pulse Ox O2 Delivery O2 Flow Rate FiO2 10/13/17 23:11 37.3 71 18 119/47 94 Room Air 10/13/17 22:35 74 18 132/59 95 Room Air 10/13/17 21:55 38.8 74 18 143/67 95 Room Air 10/13/17 20:50 78 10/13/17 20:49 80 18 146/57 96 Room Air 10/13/17 20:18 38.6 76 20 164/110 96 Room Air 10/13/17 18:31 36.7 65 20 138/74 97 Room Air General Appearance: WD/WN Head: normocephalic Eyes: normal inspection ENT: normal ENT inspection Neck: supple, + pertinent finding (JVD cannot be assessed) Respiratory/Chest: chest non-tender Cardiovascular: regular rate, rhythm, no edema, no gallop Abdomen/GI: normal bowel sounds, non tender, soft Genitourinary - Male: + pertinent finding (There is no pain or distention on palpation of the bladder) Back: normal inspection, no CVA tenderness Extremities/Musculoskelatal: normal inspection, no calf tenderness, normal capillary refill, + pertinent finding (Minimal pedal edema) Neurologic/Psych: seasoning mixer II-XII nml as tested, no motor/sensory deficits, alert Skin: normal color Diagnostics Laboratory Results Results Past 24 Hours Test 10/13/17 19:20 10/13/17 20:30 Range/Units Urine Color YELLOW Urine Appearance CLOUDY CLEAR Urine pH 6.5 4.5-7.5 Urine Specific [place] 1.010 1.000-1.030 Urine Protein NEG NEG Urine Glucose (UA) 2+ NEG Urine Ketones NEG NEG Urine Occult Blood 3+ NEG Urine Nitrite POS NEG Urine Bilirubin NEG NEG Urine Urobilinogen NEG NEG Urine Leukocyte Esterase MODERATE NEG Urine WBC (Auto) 10-30 0-5 /hpf Urine RBC (Auto) 5-10 0-4 /hpf Urine Hyaline Casts (Auto) 1-5 0-5 /lpf Urine Epithelial Cells (Auto) 0-5 0-5 /lpf Urine Bacteria (Auto) 4+ NEG White Blood Count 14.17 4.8-10.8 K/uL Red Blood Count 4.73 4.7-6.1 M/uL Hemoglobin 14.7 14.0-18.0 g/dL Hematocrit 42.7 42-52 % Mean Corpuscular Volume 90.3 80-100 fL Mean Corpuscular Hemoglobin 31.1 25-34 pg Mean Corpuscular Hemoglobin Concent 34.4 32-36 g/dl Platelet Count 150 130-400 K/uL Mean Platelet Volume 9.8 7.4-10.4 fL Neutrophils (%) (Auto) 88.5 % Lymphocytes (%) (Auto) 5.7 % Monocytes (%) (Auto) 4.7 % Eosinophils (%) (Auto) 0.7 % Basophils (%) (Auto) 0.1 % Neutrophils # (Auto) 12.54 1.4-6.5 K/uL Lymphocytes # (Auto) 0.81 1.2-3.4 K/uL Monocytes # (Auto) 0.66 0.11-0.59 K/uL Eosinophils # (Auto) 0.10 0-0.5 K/uL Basophils # (Auto) 0.02 0-0.2 K/uL RDW Standard Deviation 42.4 36.4-46.3 fL RDW Coefficient of Variation 12.9 11.5-14.5 % Immature Granulocyte % (Auto) 0.3 % Immature Granulocyte # (Auto) 0.04 0.00-0.02 K/uL Sodium Level 129 136-145 mmol/L Potassium Level 4.2 3.5-5.1 mmol/L Chloride Level 96 98-107 mmol/L Carbon Dioxide Level 25 21-32 mmol/L Anion Gap 8.0 3-11 mmol/L Blood Urea Nitrogen 14 7-18 mg/dl Creatinine 0.94 0.60-1.40 mg/dl Est Creatinine Clear Calc Drug Dose 125.2 ml/min Estimated GFR () 101.0 Estimated GFR (Non- 87.2 BUN/Creatinine Ratio 14.9 10-20 Random Glucose 198 70-99 mg/dl Lactic Acid Level 3.0 0.4-2.0 mmol/L Calcium Level 9.4 8.5-10.1 mg/dl Total Bilirubin 1.3 0.2-1 mg/dl Aspartate Amino Transf (AST/SGOT) 62 15-37 U/L Alanine Aminotransferase (ALT/SGPT) 108 12-78 U/L Alkaline Phosphatase 77 45-117 U/L Total Protein 8.4 6.4-8.2 gm/dl Albumin 3.8 3.4-5.0 gm/dl Globulin 4.6 2.5-4.0 gm/dl Albumin/Globulin Ratio 0.8 0.9-2 Chemistry Specimen Hemolysis Microbiology Results 10/13/17 Blood Culture, Received Pending 10/13/17 Blood Culture, Received Pending 10/13/17 Urine Culture, Received Pending Diagnostic Radiology CT abdomen 1. The prostate gland is enlarged and heterogeneous. A central defect is consistent with previous TURP. 2. The bladder wall is markedly thickened. Small foci of gas are present within the bladder lumen. This may be related to recent instrumentation. Correlate clinically and with urinalysis for evidence of cystitis. 3. The kidneys are normal in size and without hydronephrosis. There is heterogeneity of both kidneys, left greater than right with left-sided perinephric stranding. The appearance is nonspecific and could be seen in the setting of bilateral pyelonephritis. Clinical correlation will be essential. 4. Hepatomegaly and severe hepatic steatosis. 5. Splenomegaly. Impression Assessment and Plan 62 y/o M Hx HTN, DM II, psoriasis, IGLESIA, BPH, obesity, recurrent UTIs. Pt underwent a TURP 10/04. Presents with fevers, confusion and dysuria. The pt had recently been on Cipro and Macrodantoin for suppression. He is employing intermittent self-catheterization to assess for urinary retention post-op and reports that he has not had significant retention since surgery. He reports fevers throughout the day and his additionally reports that he was confused although he is awake and oriented at the time of admission. A fever was confirmed on arrival to the ER. Initial labs are notable for leukocytosis, hyponatremia, elevated LFTs and an elevated lactic acid. 1) UTI - sepsis - lactic elevation and fever are present although he is not currently tachy or hypotensive. He has been placed on Ceftriaxone - we will expand coverage owing to recent instrumentation and Humira use. 2) HypoNa - hypovolemic - Pt is on a high dose of HCTZ as it is featured in 2 of his HTN combo meds. Mild HypoNa is confirmed on previous labs so that this is acute on chronic related to dehydration. We will hold diuretics presently, provide IVF and recheck a BMP AM. 3) HTN - he is on a regimen which includes HCTZ/Aldactone and HCTZ/Losartan - as his diuretics are held we have provided PRN Hydralazine - his primary MD should be contacted prior to DC to address his medications which may be contributing to his hyponatremia and may not be optimal going forward. 4) DM - Metformin held - placed on SS - Glu is 198 and he may need additional meds going forward based on inpt trend 5) Psoriasis - the pt takes Humira - he had skipped a dose in prep for surgery although it remains effective for up to 4 months which figured into a decision to expand antibiotic coverage. 6) LFTs are abnormal - there is hepatic steatosis on imaging - the pt is at risk of cirrhosis and should be advised on weight loss prior to DC 7) IGLESIA - placed on CPAP HS Full code - SCDs - should inquire with urology reg anticoagulation if he is admitted for an extended period. Total time for this admit including review of labs, meds, imaging - discussion with pt and ER attending - 38 min Level of Care Med/Surg Resuscitation Status FULL RESUSCITATION VTE Prophylaxis VTE Risk Assessment Done? Y/N: Yes Risk Level: Moderate Given or contraindicated: SCD's
[2017-10-14] VITALS (9 sets, daily range): BP systolic 121–186; BP diastolic 51–80; PULSE 54–82; TEMP 36.7–39.5; O2SAT 94–97
[2017-10-14] MEDS ORDERED: INFLUENZA VIRUS QUAD VACCINE 0.5 ML SYR IM. ONE (00:45)
[2017-10-14] MEDS ORDERED: PNEUMOCOCCAL ADMINISTRATION CHARGE ONE (00:45)
[2017-10-14] MEDS ORDERED: PNEUMOCOCCAL POLYSACCHARIDES 25 MCG/0.5 ML VIAL/SYR IM. ONE (00:45)
[2017-10-14] MEDS ORDERED: INFLUENZA ADMINISTRATION CHARGE ONE (00:45)
[2017-10-14] MEDS ORDERED: ACETAMINOPHEN 325 MG TAB ONE (00:50)
[2017-10-14] MEDS: SODIUM CHLORIDE 0.9% 1000ML 1,000 ML IV SCH ×2 (00:57→08:00)
[2017-10-14] MEDS ORDERED: DEXTROSE 50% 50 ML SYR IV PRN (01:00)
[2017-10-14] MEDS ORDERED: GLUCOSE 40% GEL 15 GM TUBE PO PRN (01:00)
[2017-10-14] MEDS ORDERED: GLUCAGON FOR INJ 1 MG VIAL SQ PRN (01:00)
[2017-10-14] MEDS ORDERED: GLUCOSE 10 TABS/TUBE PO PRN (01:00)
[2017-10-14] MEDS: INSULIN ASPART 100 UNITS/ML 3 ML PEN SC SCH ×5 (02:40→20:10)
[2017-10-14] MEDS: CEFEPIME IV 1,000 MG in SYRINGE 0 ML IV SCH ×3 (04:48→20:07)
[2017-10-14 06:35] LABS: HEMATOCRIT 36.4 % (42-52); MEAN CELL VOLUME 89.9 fL (80-100); MEAN CORPUSCULAR HEMOGLOBIN 30.4 pg (25-34); MEAN CORPUSCULAR HGB CONC 33.8 g/dl (32-36); MEAN PLATELET VOLUME 9.3 fL (7.4-10.4); PLATELET COUNT 128 K/uL (130-400); RED BLOOD COUNT 4.05 M/uL (4.7-6.1)
[2017-10-14 07:06] LABS: BUN/CREATININE RATIO 16.3 (10-20); CALCIUM 7.9 mg/dl (8.5-10.1); CREATININE 0.57 mg/dl (0.60-1.40); POTASSIUM 3.3 mmol/L (3.5-5.1)
[2017-10-14] MEDS: MULTIVITAMIN TAB PO SCH (07:55)
[2017-10-14] MEDS: SACCHAROMYCES BOUL (FLORASTOR) 250 MG CAP PO SCH ×2 (07:55→20:07)
[2017-10-14] MEDS: LOSARTAN POTASSIUM 50 MG TAB PO SCH (07:56)
[2017-10-14] MEDS: CARVEDILOL 12.5 MG TAB PO SCH (07:56)
[2017-10-14] MEDS: TAMSULOSIN HCL 0.4 MG CAP PO SCH (07:56)
[2017-10-14] MEDS: ASPIRIN 81 MG ECTAB PO SCH (07:57)
[2017-10-14] MEDS ORDERED: LOSARTAN/HCTZ 50-12.5 EA TAB PO SCH (09:00)
[2017-10-14] MEDS ORDERED: POTASSIUM CHLORIDE 20 MEQ TABCR PO ONE (09:10)
--- NOTE | 2017-10-14 12:35 | Hospitalist Progress Note ---
Hospitalist Progress Note Date of Service Oct 14, 2017. (Corine Reagan ., JERRYC) Subjective Pt evaluation today including: conversation w/ patient, conversation w/ family ( at bedside ), physical exam, lab review, review of studies, review of inpatient medication list Voiding: no voiding problems Patient feeling significantly improved since admission. Eating and drinking OK. Denies urinary complaints. Patient denies any fever, chills, sweats, lightheadedness, dizziness, vision changes, CP, palpitations, edema, SOB, wheezing, cough, abdominal pain, nausea, vomiting, diarrhea, urinary symptoms, melena, numbness/tingling, weakness, muscle/joint pain, anxiety/depression, active bleeding, or new skin discoloration/changes. (Corine Reagan ., JERRYC) Medications Current Inpatient Medications Medications (Trade) Dose Ordered Sig/Sherri Route Start Time Stop Time Status Last Admin Dose Admin Ioversol (Optiray 320) 100 ml UD PRN IV 10/13/17 19:00 10/17/17 18:59 Aspirin (Ecotrin Tab) 81 mg QAM PO 10/14/17 09:00 11/13/17 08:59 10/14/17 07:57 81 MG Carvedilol (Coreg Tab) 12.5 mg QAM PO 10/14/17 09:00 11/13/17 08:59 10/14/17 07:56 12.5 MG Multivitamins (Multivitamin Tab) 1 tab QAM PO 10/14/17 09:00 11/13/17 08:59 10/14/17 07:55 1 TAB Saccharomyces Boulardii (Florastor Cap) 250 mg BID PO 10/14/17 09:00 11/13/17 08:59 10/14/17 07:55 250 MG Tamsulosin HCl (Flomax Cap) 0.4 mg QAM PO 10/14/17 09:00 11/13/17 08:59 10/14/17 07:56 0.4 MG Miscellaneous Information (Order Awaiting Action) 1 ea QS PO 10/14/17 08:00 11/13/17 07:59 Sodium Chloride 1,000 ml @ 125 mls/hr Q8H IV 10/13/17 23:00 10/14/17 14:59 10/14/17 08:00 125 MLS/HR Acetaminophen (Tylenol Tab) 650 mg Q4H PRN PO 10/13/17 23:15 11/12/17 23:14 Al Hydrox/Mg Hydrox/Simethicone (Maalox Max Susp) 15 ml Q4H PRN PO 10/13/17 23:15 11/12/17 23:14 Magnesium Hydroxide (Milk Of Magnesia Susp) 30 ml Q6H PRN PO 10/13/17 23:15 11/12/17 23:14 Polyethylene (Miralax Powder Packet) 17 gm DAILY PRN PO 10/13/17 23:15 11/12/17 23:14 Ondansetron HCl (Zofran Inj) 4 mg Q6H PRN IV 10/13/17 23:15 11/12/17 23:14 Losartan Potassium (coZAAR TAB) 50 mg QAM PO 10/14/17 09:00 11/13/17 08:59 10/14/17 07:56 50 MG Hydralazine HCl (Apresoline Tab) 25 mg Q8H PRN PO 10/13/17 23:30 11/12/17 23:29 10/14/17 07:56 25 MG Insulin Aspart (novoLOG ASPART) SLIDING SCALE G... ACHS SC 10/14/17 01:30 11/13/17 01:29 10/14/17 12:00 2 UNITS Glucose (Glucose 40% Gel) 15-30 GRAMS 15 GRAMS... UD PRN PO 10/14/17 01:00 11/13/17 00:59 Glucose (Glucose Chew Tab) 4-8 Tablets 4 Tabl... UD PRN PO 10/14/17 01:00 11/13/17 00:59 Dextrose (Dextrose 50% 50ML Syringe) 25-50ML OF 50% DW IV FOR... UD PRN IV 10/14/17 01:00 11/13/17 00:59 Glucagon (Glucagon Inj) 1 mg UD PRN SQ 10/14/17 01:00 11/13/17 00:59 Cefepime HCl 1000 mg/Syringe 11 ml @ 5.5 mls/min Q8H IV 10/14/17 04:00 10/24/17 03:59 10/14/17 12:03 5.5 MLS/MIN (Corine Reagan PA-C) Objective Vital Signs Date Time Temp Pulse Resp B/P (MAP) Pulse Ox O2 Delivery O2 Flow Rate FiO2 10/14/17 08:03 64 10/14/17 08:00 Room Air 10/14/17 07:01 36.7 57 20 138/65 (89) 95 Room Air 10/14/17 02:40 36.7 10/14/17 01:30 144/69 (94) 10/14/17 01:09 82 94 10/14/17 00:05 39.5 69 20 186/80 (115) 94 Room Air 10/14/17 00:00 Room Air 10/13/17 23:38 Room Air 10/13/17 23:30 37.3 69 18 119/47 95 10/13/17 23:11 37.3 71 18 119/47 94 Room Air 10/13/17 22:35 74 18 132/59 95 Room Air 10/13/17 21:55 38.8 74 18 143/67 95 Room Air 10/13/17 20:50 78 10/13/17 20:49 80 18 146/57 96 Room Air 10/13/17 20:18 38.6 76 20 164/110 96 Room Air 10/13/17 18:31 36.7 65 20 138/74 97 Room Air (Corine Reagan PA-C) Physical Exam General Appearance: no apparent distress, + obese Eyes: normal inspection, PERRL ENT: hearing grossly normal Neck: supple Respiratory/Chest: lungs clear, no respiratory distress, no accessory muscle use Cardiovascular: regular rate, rhythm Abdomen: normal bowel sounds, non tender, soft Extremities: no pedal edema, no calf tenderness Neurologic/Psychiatric: alert, normal mood/affect, oriented x 3 (Corine Reagan PA-C) Laboratory Results Last 24 Hours Test 10/13/17 19:20 10/13/17 20:30 10/14/17 01:09 10/14/17 06:12 Urine Color YELLOW Urine Appearance CLOUDY Urine pH 6.5 Urine Specific [place] 1.010 Urine Protein NEG Urine Glucose (UA) 2+ Urine Ketones NEG Urine Occult Blood 3+ Urine Nitrite POS Urine Bilirubin NEG Urine Urobilinogen NEG Urine Leukocyte Esterase MODERATE Urine WBC (Auto) 10-30 /hpf Urine RBC (Auto) 5-10 /hpf Urine Hyaline Casts (Auto) 1-5 /lpf Urine Epithelial Cells (Auto) 0-5 /lpf Urine Bacteria (Auto) 4+ White Blood Count 14.17 K/uL 7.80 K/uL Red Blood Count 4.73 M/uL 4.05 M/uL Hemoglobin 14.7 g/dL 12.3 g/dL Hematocrit 42.7 % 36.4 % Mean Corpuscular Volume 90.3 fL 89.9 fL Mean Corpuscular Hemoglobin 31.1 pg 30.4 pg Mean Corpuscular Hemoglobin Concent 34.4 g/dl 33.8 g/dl Platelet Count 150 K/uL 128 K/uL Mean Platelet Volume 9.8 fL 9.3 fL Neutrophils (%) (Auto) 88.5 % Lymphocytes (%) (Auto) 5.7 % Monocytes (%) (Auto) 4.7 % Eosinophils (%) (Auto) 0.7 % Basophils (%) (Auto) 0.1 % Neutrophils # (Auto) 12.54 K/uL Lymphocytes # (Auto) 0.81 K/uL Monocytes # (Auto) 0.66 K/uL Eosinophils # (Auto) 0.10 K/uL Basophils # (Auto) 0.02 K/uL RDW Standard Deviation 42.4 fL 42.9 fL RDW Coefficient of Variation 12.9 % 13.1 % Immature Granulocyte % (Auto) 0.3 % Immature Granulocyte # (Auto) 0.04 K/uL Sodium Level 129 mmol/L 134 mmol/L Potassium Level 4.2 mmol/L 3.3 mmol/L Chloride Level 96 mmol/L 103 mmol/L Carbon Dioxide Level 25 mmol/L 25 mmol/L Anion Gap 8.0 mmol/L 6.0 mmol/L Blood Urea Nitrogen 14 mg/dl 9 mg/dl Creatinine 0.94 mg/dl 0.57 mg/dl Est Creatinine Clear Calc Drug Dose 125.2 ml/min 206.5 ml/min Estimated GFR () 101.0 128.5 Estimated GFR (Non- 87.2 110.8 BUN/Creatinine Ratio 14.9 16.3 Random Glucose 198 mg/dl 192 mg/dl Lactic Acid Level 3.0 mmol/L Calcium Level 9.4 mg/dl 7.9 mg/dl Total Bilirubin 1.3 mg/dl 1.0 mg/dl Aspartate Amino Transf (AST/SGOT) 62 U/L 36 U/L Alanine Aminotransferase (ALT/SGPT) 108 U/L 79 U/L Alkaline Phosphatase 77 U/L 58 U/L Total Protein 8.4 gm/dl 6.6 gm/dl Albumin 3.8 gm/dl 2.9 gm/dl Globulin 4.6 gm/dl Albumin/Globulin Ratio 0.8 Chemistry Specimen Hemolysis Bedside Glucose 174 mg/dl Magnesium Level 2.0 mg/dl Direct Bilirubin 0.3 mg/dl Hepatitis C Antibody Screen NEG Test 10/14/17 06:21 10/14/17 07:29 10/14/17 11:38 Lactic Acid Level 1.2 mmol/L Bedside Glucose 211 mg/dl 201 mg/dl (Corine Reagan, CHERELLE) Assessment and Plan 62 y/o M Hx HTN, DM II, psoriasis, IGLESIA, BPH, obesity, recurrent UTIs. Pt underwent a TURP 10/04. Presents with fevers, confusion and dysuria. The pt had recently been on Cipro and Macrodantoin for suppression. He is employing intermittent self-catheterization to assess for urinary retention post-op and reports that he has not had significant retention since surgery. He reports fevers throughout the day and his additionally reports that he was confused although he is awake and oriented at the time of admission. A fever was confirmed on arrival to the ER. Initial labs are notable for leukocytosis, hyponatremia, elevated LFTs and an elevated lactic acid. Sepsis secondary to UTI POA- IMPROVING: - Admitted to med/surg - IV Cefepime pending UCx - UCx growing gram negative bacilli- pending final culture/sensitives - BCx pending - Lactic acidosis- RESOLVED - Tylenol PRN for fever Hyponatremia, likely secondary to dehydration- IMPROVING: - IVF @ 125 ml/hr - Hold HCTZ and HCTZ/Aldactone Hypokalemia at 3.3: Replaced w/ KCL 40 mEq x1 today; follow PRP and replace PRN HTN- STABLE: - Holding HCTZ, HCTZ/Aldactone - Continue Losartan 50 mg daily, Coreg 12.5 mg daily - Hydralazine IV PRN T2DM: - Hold Metformin while inpatient - BSG ACHS and ISS Psoriasis: Continue Humira LFTs are abnormal- IMPROVING: Hepatic steatosis on imaging- encourage weight loss/healthy diet BPH, s/p TURP on 10/04: Continue Avodart and Flomax IGLESIA: CPAP HS DVT prophylaxis: TEDs/SCDs, ambulation Code Status: LEVEL I, FULL Dispo: Discharge to home once medically stable, likely within the next 1-2 days Full code - SCDs - should inquire with urology reg anticoagulation if he is admitted for an extended period. Total time for this admit including review of labs, meds, imaging - discussion with pt and ER attending - 38 min (Corine Reagan, PA-C) I agree with PA assessment and plan and have seen and examined pt myself Resting comfortably in bed VSS Labs reviewed Leukocytosis resolved Still having dysuria/frequency Cont cefepime at this time Feeling better updated at bedside Await urine and blood cx (Aly Messer D.O.)
[2017-10-14] MEDS ORDERED: CEFTRIAXONE SOD INJ 1 GM in DEXTROSE 5% ADD-VANTAGE 50ML 50 ML IV SCH (20:00)
[2017-10-15] MEDS: CEFEPIME IV 1,000 MG in SYRINGE 0 ML IV SCH (04:04)
[2017-10-15 07:20] VITALS: BP 141/79; PULSE 53; TEMP 36.7; O2SAT 94
[2017-10-15 07:22] LABS: BUN/CREATININE RATIO 16.1 (10-20); CALCIUM 8.1 mg/dl (8.5-10.1); CREATININE 0.56 mg/dl (0.60-1.40); POTASSIUM 3.7 mmol/L (3.5-5.1)
[2017-10-15] MEDS: LOSARTAN POTASSIUM 50 MG TAB PO SCH (07:28)
[2017-10-15] MEDS: SACCHAROMYCES BOUL (FLORASTOR) 250 MG CAP PO SCH (07:28)
[2017-10-15] MEDS: ASPIRIN 81 MG ECTAB PO SCH (07:28)
[2017-10-15] MEDS: TAMSULOSIN HCL 0.4 MG CAP PO SCH (07:28)
[2017-10-15] MEDS: MULTIVITAMIN TAB PO SCH (07:28)
[2017-10-15] MEDS: INSULIN ASPART 100 UNITS/ML 3 ML PEN SC SCH ×2 (07:59→11:41)
[2017-10-15 08:45] VITALS: PULSE 56
[2017-10-15] MEDS: CARVEDILOL 12.5 MG TAB PO SCH (08:59)
[2017-10-15] MEDS ORDERED: AMOXICILLIN/CLAVULANATE TAB 875 MG TAB PO SCH (10:45)
[2017-10-15] MEDS ORDERED: AMOX1TAB43 PO (10:49)
--- NOTE | 2017-10-15 10:58 | Discharge Summary ---
Discharge Summary Date of Service Oct 15, 2017. Discharge Summary Admission Date: Oct 13, 2017 at 23:14 Discharge Date: Oct 15, 2017 Discharge Disposition: Home Principal Diagnosis: Urinary tract infection Problems/Secondary Diagnoses: Sepsis secondary to UTI POA Hyponatremia dehydration Hypokalemia HTN T2DM Psoriasis LFTs are abnormal BPH s/p TURP on 10/04 IGLESIA Immunizations: Have You Had Influenza Vaccine: N/A History of Tetanus Vaccine?: Yes History of Pneumococcal: No History of Hepatitis B Vaccine: No Procedures: CT SCAN OF THE BRAIN WITHOUT IV CONTRAST CLINICAL HISTORY: Change in mental status. COMPARISON STUDY: No priors. TECHNIQUE: Unenhanced axial CT scan of the brain is performed from the vertex to the skull base. A dose lowering technique was utilized adhering to the principles of ALARA. CT DOSE: 3362.25 mGy.cm FINDINGS: Brain parenchyma: The brain parenchyma is normal in appearance. There is no hemorrhage, mass effect, or evidence of acute territorial ischemia by CT criteria. Coleman-white matter is preserved. No extra-axial fluid collection is seen. Ventricles, sulci, cisterns: Normal in configuration. Intracranial vasculature: There is mild atherosclerotic calcification of the cavernous carotid arteries. Calvarium: Unremarkable. Sinuses and mastoids: Mild mucosal thickening and a small retention cyst are seen in the right maxillary antrum. The remaining visualized paranasal sinuses are clear. The mastoid air cells are well pneumatized. Orbits: The bony orbits are grossly intact. IMPRESSION: There is no hemorrhage, mass effect, or evidence of acute territorial ischemia by CT criteria. Electronically signed by: Tj Anderson M.D. 10/13/2017 9:53 PM Dictated Date/Time: 10/13/2017 9:51 PM The status of this report is Signed. Draft = Not yet reviewed or approved by Radiologist. Signed = Reviewed and approved by Radiologist. CT SCAN OF THE ABDOMEN AND PELVIS WITH IV CONTRAST CLINICAL HISTORY: Back pain. Urinary tract infection. Status post TURP. COMPARISON STUDY: Abdominal CT dated 08/11/2017. TECHNIQUE: Following the IV administration of 94 cc of Optiray 320, CT scan of the abdomen and pelvis is performed from the lung bases to the proximal femora. Images are reviewed in the axial, sagittal, and coronal planes. IV contrast was administered without complication. A dose lowering technique was utilized adhering to the principles of ALARA. The examination is degraded by motion artifact. CT DOSE: Reported separately under the concurrently performed CT scan of the brain. FINDINGS: Lung bases: The heart is mildly enlarged and without pericardial effusion. Evaluation of the lung bases is degraded by motion artifact. There is dependent atelectasis. No airspace consolidation is seen typical for pneumonia and there is no pleural effusion. There is a small hiatal hernia. Liver: The contrast-enhanced liver is enlarged, measuring 25.8 cm in length. The liver demonstrates diffusely diminished attenuation consistent with severe hepatic steatosis. There is no intrahepatic biliary ductal dilatation. The hepatic veins and portal veins are patent. Scattered calcified granulomas are noted. Gallbladder: Unremarkable. Spleen: The spleen is enlarged, measuring 14.6 cm in length. Pancreas: Mildly atrophic and grossly unremarkable. Adrenal glands: Unremarkable. Kidneys: The contrast enhanced kidneys are normal in size and without hydronephrosis. There is slightly heterogeneous perfusion of the left kidney with nonspecific left-sided perinephric stranding. Mild heterogeneity is also seen in the right kidney. Abdominal vasculature: The abdominal aorta is normal in course and caliber noting scattered foci of atherosclerotic calcification. Bowel: There is moderate colonic fecal retention. No bowel obstruction is seen. The appendix is well-visualized and normal. Peritoneum: There is no intraperitoneal free air or abdominal ascites. There is a fat-containing umbilical hernia. Lymphadenopathy: Scattered shotty retroperitoneal and iliac chain lymph nodes are likely on a reactive basis. These are not pathologically enlarged by size criteria. Pelvic viscera: The prostate gland is mildly enlarged and heterogeneous, measuring 4.8 cm in transverse diameter. There is median lobe hypertrophy. A central filling defect is consistent with previous TURP. The bladder wall is markedly thickened. Small foci of gas are present in the bladder lumen. Skeletal structures: There is moderate lumbosacral spondylosis. Sclerotic change is seen in the sacroiliac joints. No lytic or blastic lesions are seen. IMPRESSION: 1. The prostate gland is enlarged and heterogeneous. A central defect is consistent with previous TURP. 2. The bladder wall is markedly thickened. Small foci of gas are present within the bladder lumen. This may be related to recent instrumentation. Correlate clinically and with urinalysis for evidence of cystitis. 3. The kidneys are normal in size and without hydronephrosis. There is heterogeneity of both kidneys, left greater than right with left-sided perinephric stranding. The appearance is nonspecific and could be seen in the setting of bilateral pyelonephritis. Clinical correlation will be essential. 4. Hepatomegaly and severe hepatic steatosis. 5. Splenomegaly. 6. Moderate constipation. No bowel obstruction is seen. 7. Additional findings as above. Electronically signed by: Tj Anderson M.D. 10/13/2017 10:17 PM Dictated Date/Time: 10/13/2017 10:09 PM The status of this report is Signed. Draft = Not yet reviewed or approved by Radiologist. Signed = Reviewed and approved by Radiologist. Medication Reconciliation New Medications: Amoxicillin & Pot Clavulanate (Amoxicillin/Clavulanate P) 1 Tab Tab 875 MG PO BIDM for 5 Days, #10 TAB Continued Medications: Adalimumab (Humira Pen) 40 Mg/0.8 Ml Kit 40 MG SQ Q2 WK Aspirin (Aspirin Ec) 81 Mg Tab 81 MG PO QAM Carvedilol (Coreg) 12.5 Mg Tab 12.5 MG PO QAM, TAB Dutasteride (Avodart) 0.5 Mg Cap 0.5 MG PO QAM, CAP Fiber Laxative (Fiber Laxative) Ea 1 TAB PO QAM Hctz/Losartan (Hyzaar 25MG/100MG) Tab 1 TAB PO DAILY, TAB Hctz/Spironolactone (Spironolactone/Hydrochlor 25-25 mg) 1 Ea Tab 1 TAB PO QAM Metformin Hcl (Glucophage Ext Rel) 1,000 Mg Tab 1000 MG PO BID, TAB Multivitamin (Multivitamin) Tab 1 TAB PO QAM, TAB Saccharomyces Boulardii (Probiotic) 250 Mg Cap 1 CAP PO BID Tamsulosin Hcl (Flomax) 0.4 Mg Cap 0.4 MG PO QAM, CAP Referrals At Discharge Follow up Referrals: Family Practice Referral - Within 1-2 Weeks with Edgardo Frazier M.D. Discharge Exam Review of Systems: Constitutional: No fever, No chills, No sweats, No weakness, No fatigue Respiratory: No cough, No shortness of breath, No hemoptysis Cardiovascular: No chest pain, No edema, No palpitations Abdomen: No pain, No nausea, No vomiting, No diarrhea, No constipation Musculoskeletal: No joint pain, No muscle pain, No swelling, No calf pain Genitourinary - Male: No hematuria, No dysuria, No urinary frequency, No urinary urgency, No urinary hesitancy, No urinary retention, No urinary incontinence Neurologic: No weakness, No numbness/tingling Psychiatric: No depression symptoms, No anxiety Endocrine: No fatigue Hematologic / Lymphatic: No abnormal bleeding/bruising Integumentary: No rash, No itch, No new/changing skin lesions Physical Exam: General Appearance: no apparent distress, + obese Eyes: normal inspection, PERRL ENT: hearing grossly normal Neck: supple Respiratory/Chest: lungs clear, no respiratory distress, no accessory muscle use Cardiovascular: regular rate, rhythm Abdomen / GI: normal bowel sounds, non tender, soft Extremities: no calf tenderness, no pedal edema Neurologic/Psychiatric: alert, normal mood/affect, oriented x 3 Skin: normal color, warm/dry, no rash Hospital Course Admission H&P: 62 y/o M Hx HTN, DM II, psoriasis, IGLESIA, BPH, obesity, recurrent UTIs. Pt underwent a TURP 10/04. Presents with fevers, confusion and dysuria. The pt had recently been on Cipro and Macrodantoin for suppression. He is employing intermittent self-catheterization to assess for urinary retention post-op and reports that he has not had significant retention since surgery. He reports fevers throughout the day and his additionally reports that he was confused although he is awake and oriented at the time of admission. A fever was confirmed on arrival to the ER. Initial labs are notable for leukocytosis, hyponatremia, elevated LFTs and an elevated lactic acid. Physical Exam Vital Signs Date Time Temp Pulse Resp B/P (MAP) Pulse Ox O2 Delivery O2 Flow Rate FiO2 10/13/17 23:11 37.3 71 18 119/47 94 Room Air 10/13/17 22:35 74 18 132/59 95 Room Air 10/13/17 21:55 38.8 74 18 143/67 95 Room Air 10/13/17 20:50 78 10/13/17 20:49 80 18 146/57 96 Room Air 10/13/17 20:18 38.6 76 20 164/110 96 Room Air 10/13/17 18:31 36.7 65 20 138/74 97 Room Air General Appearance: WD/WN Head: normocephalic Eyes: normal inspection ENT: normal ENT inspection Neck: supple, + pertinent finding (JVD cannot be assessed) Respiratory/Chest: chest non-tender Cardiovascular: regular rate, rhythm, no edema, no gallop Abdomen/GI: normal bowel sounds, non tender, soft Genitourinary - Male: + pertinent finding (There is no pain or distention on palpation of the bladder) Back: normal inspection, no CVA tenderness Extremities/Musculoskelatal: normal inspection, no calf tenderness, normal capillary refill, + pertinent finding (Minimal pedal edema) 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 as tested, no motor/sensory deficits, alert Skin: normal color Hospital Course: Sepsis secondary to UTI POA- IMPROVING: - Admitted to med/surg - IV Cefepime- transition to Augmentin BID for a total of 7 days -- Penicillin allergy noted (rash)- first dose given prior to discharge to monitor for adverse reaction - UCx w/ E.coli- sensitives reviewed - BCx NGTD - Lactic acidosis- RESOLVED - Tylenol PRN for fever Hyponatremia, likely secondary to dehydration- RESOLVED: - Treated IVF @ 125 ml/hr - Hold HCTZ and HCTZ/Aldactone Hypokalemia at 3.3- RESOLVED: Replaced w/ KCL 40 mEq x1 today; follow PRP and replace PRN HTN- STABLE: - Held HCTZ, HCTZ/Aldactone due to hyponatremia/dehydration- resume regimen at discharge - Continue Losartan 50 mg daily, Coreg 12.5 mg daily - Hydralazine IV PRN T2DM: - Hold Metformin while inpatient- resume at discharge - BSG ACHS and ISS Psoriasis: Continue Humira LFTs are abnormal- IMPROVING: Hepatic steatosis on imaging- encourage weight loss/healthy diet BPH, s/p TURP on 10/04: Continue Avodart and Flomax IGLESIA: CPAP HS DVT prophylaxis: TEDs/SCDs, ambulation Code Status: LEVEL I, FULL Dispo: Discharge to home Total Time Spent: Greater than 30 minutes This includes examination of the patient, discharge planning, medication reconciliation, and communication with other providers. Discharge Instructions Please refer to the electronic Patient Visit Report (Discharge Instructions) for additional information. Follow-Up Please follow-up with your PCP within 5-7 days Please follow-up/keep all of your subspecialty appointments Additional Copies To Edgardo Frazier M.D.
--- NOTE | 2017-10-15 10:59 | Discharge Instructions ---
Discharge Instructions Date of Service Oct 15, 2017. Admission Reason for Admission: Sirs, Uti Discharge Discharge Diagnosis / Problem: Sepsis, Urinary tract infection Discharge Goals Goal(s): Decrease discomfort, Learn about illness, Diagnostic testing, Therapeutic intervention, Prevent Disease Progression Activity Recommendations Activity Limitations: resume your previous activity . Instructions / Follow-Up Instructions / Follow-Up Urinary tract infection: Augmentin 1 tablet twice daily until prescription is completed- first dose tonight (10/15) Resume all other regular home medications as prescribed FOLLOW-UPS: Please follow-up with your PCP within 5-7 days Please follow-up/keep all of your subspecialty appointments Current Hospital Diet Patient's current hospital diet: AHA Diet (Heart Healthy), Diabetes Type 2 Diet Discharge Diet Recommended Diet: AHA Diet (Heart Healthy), Diabetes Type 2 Diet Pending Studies Studies pending at discharge: no Medical Emergencies . Who to Call and When: Medical Emergencies: If at any time you feel your situation is an emergency, please call 911 immediately. . Non-Emergent Contact Non-Emergency issues call your: Primary Care Provider Call Non-Emergent contact if: you have a fever, you have any medication questions . . "Provider Documentation" section prepared by Corine Reagan. . VTE Core Measure Inpt VTE Proph given/why not?: SCD's
[2017-10-15] MEDS ORDERED: METFORMIN HCL 500 MG TABCR PO SCH (12:15)
[2017-10-15 14:17] VITALS: BP 141/79; PULSE 56; TEMP 36.7; O2SAT 94
== END 2017-10-15 14:43 | disposition home or self-care (01) | DRG 872 ==
LOC: C.EDB 18:28 → C.MS2W 23:14 → ENRESERV 23:22
PROVIDERS: ADMIT Internal Medicine; ATTEND Hospitalist
DX: A41.9 Sepsis, unspecified organism (principal); N39.0 Urinary tract infection, site not specified; E87.1 Hypo-osmolality and hyponatremia; B96.20 Unspecified Escherichia coli [E. coli] as the cause of diseases classified elsewhere; I10 Essential (primary) hypertension; L40.9 Psoriasis, unspecified; E11.9 Type 2 diabetes mellitus without complications; E86.0 Dehydration; E87.6 Hypokalemia; G47.33 Obstructive sleep apnea (adult) (pediatric); N40.0 Benign prostatic hyperplasia without lower urinary tract symptoms; Z79.82 Long term (current) use of aspirin; Z79.84 Long term (current) use of oral hypoglycemic drugs; Z79.899 Other long term (current) drug therapy; Z88.0 Allergy status to penicillin; Z88.2 Allergy status to sulfonamides; Z92.25 Personal history of immunosuppression therapy

== ENCOUNTER 2017-10-28 07:42 | Inpatient (IN) | payer OTHER ==
[~2017-10-28] VITALS: Ht 182.9 cm; Wt 148.6 kg
[~2017-10-28 07:42] MED LIST changes: +AMOX1TAB43 PO; +HYZ/10015 PO; -LOSA1TAB38 PO; -NITR-5 PO; -OXYC-57 PO
[2017-10-28 11:12] VITALS: BP 137/74; PULSE 101; TEMP 36.6; O2SAT 95
[2017-10-28 11:28] VITALS: BP 137/74; PULSE 101; TEMP 36.6; BMI 44.4
[2017-10-28] MEDS ORDERED: NURSING VERBAL MED ORDER ONE (13:15)
[2017-10-28] MEDS ORDERED: MoRPHine SULFATE 2 MG/ML CARP IV PRN (13:30)
[2017-10-28] MEDS: SODIUM CHLORIDE 0.9% 1000ML 1,000 ML IV SCH (13:31)
--- NOTE | 2017-10-28 14:23 | Urology Consultation ---
History General Date of Service: Oct 28, 2017. Chief Complaint: GH, Clot Retention Primary Care Physician: Edgardo Frazier M.D. Pt seen a urologist before?: Yes If yes, why?: TURP History of Present Illness Patient developed sudden onset of severe hematuria with clot retention and inability to void. Had recently had TURP/BT approx 3 weeks ago with recent catheter removal. Sudden onset, severe pain and spasm into groin and penis with large amount of clot passage. Unable to void until finally had large amount of clot. Catheter was placed and clotted off multiple times. Changed to larger calibre [employer] [address] way and transferred from ER. Now on CBI and irrigated multiple times. Cleared considerably. No pain or discomfort at this time. Mild penile irritaiton. Moderate bother. Laboratory Labs were reviewed and are within normal limits unless listed below. Labs are available in the chart and at [facility] Problem List Medical Problems: (1) Confusion Status: Acute (2) Sepsis Status: Acute (3) Urinary tract infection Status: Acute Past History BPH, hypertension Past Surgical History: other (TURP) Additional Comments: Med, Surg, Fam, and Soc history all reviewed. Please see H&P for full results. Family History Patient reports no known family medical history. Social History Hx Tobacco Use In Past Year?: No Marital status: Immunizations History of Influenza Vaccine: N/A History of Tetanus Vaccine?: Yes History of Pneumococcal: No History of Hepatitis B Vaccine: No Allergies Coded Allergies: Sulfamethoxazole w/Trimethoprim (Verified Allergy, Mild, RASH, ITCH, ) Penicillins (Verified Allergy, Unknown, RASH, 10/13/17) Medications Home Medications: Home Meds and Scripts Medications Dose Route/Sig Max Daily Dose Days Date Category Amoxicillin/Clavulanate P (Amoxicillin & Pot Clavulanate) 1 Tab Tab 875 Mg PO BIDM 5 10/15/17 Rx Hyzaar 25MG/100MG (HCTZ/Losartan Potassium) Tab 1 Tab PO DAILY 10/13/17 Reported Probiotic (Saccharomyces Boulardii) 250 Mg Cap 1 Cap PO BID 09/16/17 Reported Fiber Laxative (Fiber) Ea 1 Tab PO QAM 08/16/17 Reported Multivitamin (Multivitamins) Tab 1 Tab PO QAM 08/16/17 Reported Aspirin Ec (Aspirin) 81 Mg Tab 81 Mg PO QAM 08/16/17 Reported Coreg (Carvedilol) 12.5 Mg Tab 12.5 Mg PO QAM 08/16/17 Reported Spironolactone/Hydrochlor 25-25 mg (HCTZ/Spironolactone) 1 Ea Tab 1 Tab PO QAM 08/16/17 Reported Glucophage Ext Rel (Metformin Hcl) 1,000 Mg Tab 1,000 Mg PO BID 08/16/17 Reported Flomax (Tamsulosin Hcl) 0.4 Mg Cap 0.4 Mg PO QAM 08/16/17 Reported Avodart (Dutasteride) 0.5 Mg Cap 0.5 Mg PO QAM 08/16/17 Reported Humira Pen (Adalimumab) 40 Mg/0.8 Ml Kit 40 Mg SQ Q2 WK 08/16/17 Reported Inpatient Medications: Current Inpatient Medications Medications (Trade) Dose Ordered Sig/Sherri Route Start Time Stop Time Status Last Admin Dose Admin Morphine Sulfate (MoRPHine SULFATE INJ) 1 mg Q6H PRN IV 10/28/17 13:30 11/11/17 13:29 Sodium Chloride 1,000 ml @ 50 mls/hr Q20H IV 10/28/17 13:30 11/27/17 13:29 10/28/17 13:31 50 MLS/HR Review of Systems Review of Systems All Other Systems: Reviewed and Negative Additional Comments: All reviewed, pertinent positives and negatives in HPI Physical Exam Vital Signs: Vital Signs Past 12 Hours Date Time Temp Pulse Resp B/P (MAP) Pulse Ox O2 Delivery O2 Flow Rate FiO2 10/28/17 11:28 36.6 101 18 137/74 Room Air 10/28/17 11:12 36.6 101 18 137/74 (95) 95 Room Air Physical Exam: General Appearance: WD/WN, no apparent distress Eyes: bilateral eyes normal inspection ENT: normal ENT inspection, hearing grossly normal Neck: supple, no JVD Respiratory/Chest: no respiratory distress, no accessory muscle use Cardiovascular: regular rate, rhythm Gastrointestinal: Abdomen: diffuse (mild distened. Morbidly obese) Bladder: tender Genitourinary - Male: Penis: circumcised (Mild blood at meatus. Mild tenderness. Flores in place. 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 Clot Retention 3. Gross Hematuria 4. JOSEP Plan to continue CBI. Recently irrigated and draining well with light pink to clear color. Currently receiving IV hydration. Will make NPO after midnight and observe output. Monitor for clot development and recommend irrigating as needed. Will follow closely on irrigation and monitor need for intervention. Continue catheter in place. Monitor labs and vital. Will follow for resolution of GH. Likely benefit from IV abx during acute event to avoid developement of UTI/pyelonephritis.
[2017-10-28] MEDS ORDERED: DEXTROSE 50% 50 ML SYR IV PRN (14:45)
[2017-10-28] MEDS ORDERED: ALUMINUM/MAGNESIUM/SIMETH (MAALOX MAX) 30 ML UDC PO PRN (14:45)
[2017-10-28] MEDS ORDERED: GLUCAGON FOR INJ 1 MG VIAL SQ PRN (14:45)
[2017-10-28] MEDS ORDERED: ZOLPIDEM TARTRATE 5 MG TAB PO PRN (14:45)
[2017-10-28] MEDS ORDERED: ACETAMINOPHEN 325 MG TAB PO PRN (14:45)
[2017-10-28] MEDS ORDERED: POLYETHYLENE (MIRALAX) 17 GM PACK PO PRN (14:45)
[2017-10-28] MEDS ORDERED: MAGNESIUM HYDROXIDE SUSP 30 ML UDC PO PRN (14:45)
[2017-10-28] MEDS ORDERED: GLUCOSE 40% GEL 15 GM TUBE PO PRN (14:45)
[2017-10-28] MEDS ORDERED: GLUCOSE 10 TABS/TUBE PO PRN (14:45)
[2017-10-28 15:54] VITALS: BP 134/78; PULSE 77; TEMP 36.7; O2SAT 94
[2017-10-28 16:22] VITALS: O2SAT 94
[2017-10-28] MEDS: INSULIN ASPART 100 UNITS/ML 3 ML PEN SC SCH ×2 (18:00→21:01)
--- NOTE | 2017-10-28 18:26 | History and Physical ---
History & Physical Date & Time of Service: Oct 28, 2017 at 18:17 Chief Complaint: Hematuria Primary Care Physician: Edgardo Frazier M.D. History of Present Illness Source: patient, partner 62 years old man with past medical history of diabetes mellitus non-insulin- requiring, sleep apnea on CPAP, hypertension, psoriasis on Humira and benign prostatic enlargement status post TURP/BT 3 weeks ago. Patient was in his regular state of health. After after urinary outflow improved significantly. Yesterday the patient self urinary retention, spasm his penis, pelvic pressure and discomfort. Patient went to the bathroom he passed a piece of blood clot and since then he has been having hematuria. Transferred from outside facility to our hospital as his urologist comes to our hospital. Started on CBI pain. Hematuria started to clear. Denies any fever or chills Lives with his Father from leukemia on year Past Medical/Surgical History Medical Problems: (1) Enlarged prostate Status: Resolved (2) Enlarged prostate Status: Resolved Surgical Problems: (1) S/P TURP Status: Resolved Family History Patient reports no known family medical history. Social History Smoking Status: Never Smoker Marital Status: Immunizations History of Influenza Vaccine: N/A History of Tetanus Vaccine?: Yes History of Pneumococcal: No History of Hepatitis B Vaccine: No Allergies Coded Allergies: Sulfamethoxazole w/Trimethoprim (Verified Allergy, Mild, RASH, ITCH, ) Penicillins (Verified Allergy, Unknown, RASH, 10/13/17) Home Medications Scheduled Adalimumab (Humira Pen), 40 MG SQ Q2 WK Aspirin (Aspirin Ec), 81 MG PO QAM Carvedilol (Coreg), 12.5 MG PO QAM Dutasteride (Avodart), 0.5 MG PO QAM Fiber Laxative (Fiber Laxative), 1 TAB PO QAM Hctz/Losartan (Hyzaar 25MG/100MG), 1 TAB PO DAILY Hctz/Spironolactone (Spironolactone/Hydrochlor 25-25 mg), 1 TAB PO QAM Metformin Hcl (Glucophage Ext Rel), 1,000 MG PO BID Multivitamin (Multivitamin), 1 TAB PO QAM Saccharomyces Boulardii (Probiotic), 1 CAP PO BID Review of Systems Constitutional: No fever, No chills, No sweats, No weight loss, No weakness, No fatigue, No problem reported Eyes: No worsening of vision, No eye pain, No redness, No discharge, No diplopia, No problem reported ENT: No hearing loss, No unusual epistaxis, No nasal symptoms, No sore throat, No tinnitus, No dental problems, No trouble swallowing, No problem reported Respiratory: No cough, No sputum, No wheezing, No shortness of breath, No dyspnea on exertion, No dyspnea at rest, No hemoptysis, No problem reported Cardiovascular: No chest pain, No orthopnea, No PND, No edema, No claudication , No palpitations, No problem reported Abdomen: No pain, No nausea, No vomiting, No diarrhea, No constipation, No GI bleeding, No problem reported Musculoskeletal: No joint pain, No muscle pain, No swelling, No calf pain, No problem reported Genitourinary - Male: + hematuria, + urinary hesitancy, + urinary retention, No dysuria, No urinary frequency, No urinary urgency, No urinary incontinence, No penile discharge, No lesions, No impotence, No problem reported Neurologic: No memory loss, No paralysis, No weakness, No numbness/tingling, No vertigo, No balance problems, No problem reported Psychiatric: No depression symptoms, No anhedonism, No anxiety, No insomnia, No substance abuse, No problem reported Endocrine: No fatigue, No excessive thirst, No excessive urination, No problem reported Hematologic / Lymphatic: No abnormal bleeding/bruising, No clotting problems, No swollen lymph nodes, No night sweats, No problem reported Integumentary: No rash, No itch, No new/changing skin lesions, No color change , No bleeding, No problem reported Allergic / Immunologic: No environmental allergies, No seasonal allergies, No pet sensitivities, No food allergies, No hives, No frequent infections, No poor healing, No prolonged convalescence, No problem reported Physical Exam Vital Signs Date Time Temp Pulse Resp B/P (MAP) Pulse Ox O2 Delivery O2 Flow Rate FiO2 10/28/17 15:54 36.7 77 18 134/78 (96) 94 Room Air 10/28/17 11:28 36.6 101 18 137/74 Room Air 10/28/17 11:12 36.6 101 18 137/74 (95) 95 Room Air General Appearance: WD/WN, no apparent distress Head: normocephalic, atraumatic Eyes: normal inspection, EOMI ENT: normal ENT inspection, hearing grossly normal Neck: supple Respiratory/Chest: chest non-tender, lungs clear, normal breath sounds, no respiratory distress, no accessory muscle use Cardiovascular: regular rate, rhythm, no edema, no gallop, no JVD, no murmur, normal peripheral pulses Abdomen/GI: normal bowel sounds, non tender, soft, no organomegaly, no pulsatile mass Genitourinary - Male: normal male genitalia Back: normal inspection Extremities/Musculoskelatal: normal inspection, no calf tenderness, normal capillary refill, no pedal edema 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 Presented with heavy menstrual anemia/blood clot/urinary retention Assessment Hematuria/blood clot/urinary retention secondary to below Status post recent TURP HTN DM II, psoriasis, IGLESIA CPAP obesity History of recurrent UTIs. Plan Continue CBI, urine is clearing Obtain labs and follow-up Consult urology appreciated, to start oral diet CPAP at night Sliding scale insulin Hold metformin Hold blood pressure medications except for Coreg now SCD boots for DVT prophylaxis Hold aspirin (no history of stents, patient uses for primary prophylaxis) Advanced Directives Existing Living Will: No Existing Power of Finisher Cold Rolling: No VTE Prophylaxis VTE Risk Assessment Done? Y/N: Yes Risk Level: Moderate Given or contraindicated: Contraindicated
[2017-10-28 19:35] LABS: BASO % 0.1 %; BASO ABS # 0.01 K/uL (0-0.2); EOS % 0.5 %; EOS ABS # 0.06 K/uL (0-0.5); HEMATOCRIT 31.8 % (42-52); IG# 0.03 K/uL (0.00-0.02); LYMPH % 11.9 %; LYMPH ABS # 1.54 K/uL (1.2-3.4); MEAN CELL VOLUME 89.1 fL (80-100); MEAN CORPUSCULAR HEMOGLOBIN 30.8 pg (25-34); MEAN PLATELET VOLUME 9.4 fL (7.4-10.4); MONO % 8.6 %; MONO ABS # 1.11 K/uL (0.11-0.59); NEUT % 78.7 %; NEUT ABS # 10.22 K/uL (1.4-6.5); PLATELET COUNT 226 K/uL (130-400); RED CELL DISTRIBUTION WIDTH CV 12.9 % (11.5-14.5); RED CELL DISTRIBUTION WIDTH SD 41.8 fL (36.4-46.3); WHITE BLOOD COUNT 12.97 K/uL (4.8-10.8)
[2017-10-28 19:37] LABS: MEAN CORPUSCULAR HGB CONC 34.6 g/dl (32-36)
[2017-10-28 20:02] LABS: CALCIUM 8.3 mg/dl (8.5-10.1); CREATININE 0.89 mg/dl (0.60-1.40); POTASSIUM 3.8 mmol/L (3.5-5.1); TOTAL PROTEIN 6.8 gm/dl (6.4-8.2)
[2017-10-28 23:27] VITALS: BP 151/75; PULSE 68; TEMP 36.5; O2SAT 99
[2017-10-29 06:03] LABS: BASO % 0.2 %; BASO ABS # 0.02 K/uL (0-0.2); EOS % 1.7 %; EOS ABS # 0.17 K/uL (0-0.5); HEMATOCRIT 30.2 % (42-52); HEMOGLOBIN 10.2 g/dL (14.0-18.0); IG# 0.02 K/uL (0.00-0.02); LYMPH % 11.2 %; LYMPH ABS # 1.11 K/uL (1.2-3.4); MEAN CELL VOLUME 90.4 fL (80-100); MEAN CORPUSCULAR HEMOGLOBIN 30.5 pg (25-34); MEAN CORPUSCULAR HGB CONC 33.8 g/dl (32-36); MEAN PLATELET VOLUME 9.1 fL (7.4-10.4); MONO % 9.4 %; MONO ABS # 0.93 K/uL (0.11-0.59); NEUT % 77.3 %; NEUT ABS # 7.63 K/uL (1.4-6.5); PLATELET COUNT 170 K/uL (130-400); RED CELL DISTRIBUTION WIDTH CV 13.1 % (11.5-14.5); RED CELL DISTRIBUTION WIDTH SD 42.9 fL (36.4-46.3); WHITE BLOOD COUNT 9.88 K/uL (4.8-10.8)
[2017-10-29 06:35] LABS: ALBUMIN 2.9 gm/dl (3.4-5.0); CALCIUM 7.9 mg/dl (8.5-10.1); CREATININE 0.58 mg/dl (0.60-1.40); POTASSIUM 3.7 mmol/L (3.5-5.1)
[2017-10-29 06:38] LABS: TOTAL PROTEIN 6.5 gm/dl (6.4-8.2)
[2017-10-29 06:58] LABS: HEMOGLOBIN A1C 8.3 % (4.5-5.6)
[2017-10-29 07:04] VITALS: BP 121/71; PULSE 69; TEMP 36.8; O2SAT 94
[2017-10-29] MEDS: CARVEDILOL 12.5 MG TAB PO SCH ×2 (08:00→09:00)
[2017-10-29] MEDS: SODIUM CHLORIDE 0.9% 1000ML 1,000 ML IV SCH (08:17)
[2017-10-29] MEDS: INSULIN ASPART 100 UNITS/ML 3 ML PEN SC SCH ×3 (09:04→21:40)
--- NOTE | 2017-10-29 09:04 | Progress Note ---
Subjective Date of Service: Oct 29, 2017. (Aleah Subramanian CRNP) Subjective Pt evaluation today including: conversation w/ patient, chart review, lab review Voiding: joseph catheter in place (patent, draing clear, light pink urine with CBI running ) 62 yo male with gross hematuria s/p button TURP on 10-04. Pt reportedly clotted off overnight requiring manual irrigation. Joseph draining light clear, escobar colored urine this morning with CBI running. No clots noted. H&H stable. (Aleah Subramanian CRNP) Problem List Medical Problems: (1) Confusion Status: Acute (2) Sepsis Status: Acute (3) Urinary tract infection Status: Acute (Aleah Subramanian CRNP) Review of Systems Constitutional: No fever, No chills Respiratory: No shortness of breath Cardiac: No chest pain Abdomen: No pain, No nausea, No vomiting Male : No dysuria, No hematuria Heme: + abnormal bleeding/bruising (Aleah Subramanian CRNP) Objective Vital Signs Date Time Temp Pulse Resp B/P (MAP) Pulse Ox O2 Delivery O2 Flow Rate FiO2 10/29/17 07:04 36.8 69 20 121/71 (88) 94 Room Air 10/29/17 00:00 Room Air 10/28/17 23:27 36.5 68 20 151/75 (100) 99 CPAP 10/28/17 16:22 94 Room Air 10/28/17 15:54 36.7 77 18 134/78 (96) 94 Room Air 10/28/17 11:28 36.6 101 18 137/74 Room Air 10/28/17 11:12 36.6 101 18 137/74 (95) 95 Room Air (Aleah Subramanian CRNP) Physical Exam General Appearance: no apparent distress, + obese Eyes: normal inspection ENT: hearing grossly normal Neck: no JVD Respiratory/Chest: no respiratory distress, no accessory muscle use Cardiovascular: no JVD Extremities: normal inspection Neurologic/Psychiatric: alert, normal mood/affect, oriented x 3 Skin: normal color (Aleah Subramanian CRNP) Laboratory Results Last 24 Hours Test 10/28/17 13:24 10/28/17 17:25 10/28/17 19:18 10/28/17 20:03 Bedside Glucose 225 mg/dl 217 mg/dl 212 mg/dl White Blood Count 12.97 K/uL Red Blood Count 3.57 M/uL Hemoglobin 11.0 g/dL Hematocrit 31.8 % Mean Corpuscular Volume 89.1 fL Mean Corpuscular Hemoglobin 30.8 pg Mean Corpuscular Hemoglobin Concent 34.6 g/dl Platelet Count 226 K/uL Mean Platelet Volume 9.4 fL Neutrophils (%) (Auto) 78.7 % Lymphocytes (%) (Auto) 11.9 % Monocytes (%) (Auto) 8.6 % Eosinophils (%) (Auto) 0.5 % Basophils (%) (Auto) 0.1 % Neutrophils # (Auto) 10.22 K/uL Lymphocytes # (Auto) 1.54 K/uL Monocytes # (Auto) 1.11 K/uL Eosinophils # (Auto) 0.06 K/uL Basophils # (Auto) 0.01 K/uL RDW Standard Deviation 41.8 fL RDW Coefficient of Variation 12.9 % Immature Granulocyte % (Auto) 0.2 % Immature Granulocyte # (Auto) 0.03 K/uL Prothrombin Time 11.0 SECONDS Prothromb Time International Ratio 1.0 Sodium Level 135 mmol/L Potassium Level 3.8 mmol/L Chloride Level 102 mmol/L Carbon Dioxide Level 25 mmol/L Anion Gap 8.0 mmol/L Blood Urea Nitrogen 11 mg/dl Creatinine 0.89 mg/dl Est Creatinine Clear Calc Drug Dose 130.7 ml/min Estimated GFR () 107.0 Estimated GFR (Non- 92.3 BUN/Creatinine Ratio 12.2 Random Glucose 220 mg/dl Calcium Level 8.3 mg/dl Total Bilirubin 1.1 mg/dl Aspartate Amino Transf (AST/SGOT) 33 U/L Alanine Aminotransferase (ALT/SGPT) 86 U/L Alkaline Phosphatase 57 U/L Total Protein 6.8 gm/dl Albumin 3.0 gm/dl Globulin 3.8 gm/dl Albumin/Globulin Ratio 0.8 Test 10/29/17 05:48 10/29/17 07:22 White Blood Count 9.88 K/uL Red Blood Count 3.34 M/uL Hemoglobin 10.2 g/dL Hematocrit 30.2 % Mean Corpuscular Volume 90.4 fL Mean Corpuscular Hemoglobin 30.5 pg Mean Corpuscular Hemoglobin Concent 33.8 g/dl Platelet Count 170 K/uL Mean Platelet Volume 9.1 fL Neutrophils (%) (Auto) 77.3 % Lymphocytes (%) (Auto) 11.2 % Monocytes (%) (Auto) 9.4 % Eosinophils (%) (Auto) 1.7 % Basophils (%) (Auto) 0.2 % Neutrophils # (Auto) 7.63 K/uL Lymphocytes # (Auto) 1.11 K/uL Monocytes # (Auto) 0.93 K/uL Eosinophils # (Auto) 0.17 K/uL Basophils # (Auto) 0.02 K/uL RDW Standard Deviation 42.9 fL RDW Coefficient of Variation 13.1 % Immature Granulocyte % (Auto) 0.2 % Immature Granulocyte # (Auto) 0.02 K/uL Sodium Level 136 mmol/L Potassium Level 3.7 mmol/L Chloride Level 103 mmol/L Carbon Dioxide Level 27 mmol/L Anion Gap 6.0 mmol/L Blood Urea Nitrogen 11 mg/dl Creatinine 0.58 mg/dl Est Creatinine Clear Calc Drug Dose 200.6 ml/min Estimated GFR () 127.5 Estimated GFR (Non- 110.0 BUN/Creatinine Ratio 18.1 Random Glucose 184 mg/dl Estimated Average Glucose 192 mg/dl Hemoglobin A1c 8.3 % Calcium Level 7.9 mg/dl Total Bilirubin 1.1 mg/dl Aspartate Amino Transf (AST/SGOT) 37 U/L Alanine Aminotransferase (ALT/SGPT) 79 U/L Alkaline Phosphatase 55 U/L Total Protein 6.5 gm/dl Albumin 2.9 gm/dl Globulin 3.6 gm/dl Albumin/Globulin Ratio 0.8 Bedside Glucose 181 mg/dl (Aleah Subramanian CRNP) Assessment and Plan A/P: Gross hematuria AFVSS. Hematuria currently improved, but the pt continues to have intermittent clotting. Will continue CBI for now, and leave the pt NPO. Dr. Baugh to re-evaluate the pt this afternoon in the event he needs cysto with fulguration. Continue hand irrigation PRN. Will type and screen the pt. Recheck an H&H at 1300. (Aleah Subramanian CRNP) Pt seen this afternoon with clear urine but it gets pink w clots with movement . Hct stable over past 24 hours at 31 . Will feed and continue CBI. Npo after midnite and will reevaluate in AM [facility] (Barry Baugh M.D.)
--- NOTE | 2017-10-29 10:06 | Hospitalist Progress Note ---
Hospitalist Progress Note Date of Service Oct 29, 2017. (Corine Reagan ., PA-C) Subjective Pt evaluation today including: conversation w/ patient, physical exam, lab review, review of studies, review of inpatient medication list Voiding: joseph catheter in place (draining pink tinged urine ) Patient resting in bed. No acute distress. Most recently admitted here on 10/13 for urosepsis- discharged on Augmentin BID- patient states he completed entire course as instructed, which was completed . He was in his normal state of health until 10/27 PM when he started to note dysuria, urinary retention, and hematuria w/ large clots. Currently, patient states he is feeling well. Joseph catheter in place. NPO for possible need of urologic procedure- will advance per Urology recommendations. Patient denies any fever, chills, sweats, lightheadedness, dizziness, vision changes, CP, palpitations, edema, SOB, wheezing, cough, abdominal pain, nausea, vomiting, diarrhea, melena, numbness/tingling, weakness, muscle/joint pain, anxiety/depression, active bleeding, or new skin discoloration/changes. (Corine Reagan ., PA-C) Medications Current Inpatient Medications Medications (Trade) Dose Ordered Sig/Sherri Route Start Time Stop Time Status Last Admin Dose Admin Morphine Sulfate (MoRPHine SULFATE INJ) 1 mg Q6H PRN IV 10/28/17 13:30 11/11/17 13:29 Sodium Chloride 1,000 ml @ 50 mls/hr Q20H IV 10/28/17 13:30 11/27/17 13:29 10/29/17 08:17 50 MLS/HR Acetaminophen (Tylenol Tab) 650 mg Q4H PRN PO 10/28/17 14:45 11/27/17 14:44 Al Hydrox/Mg Hydrox/Simethicone (Maalox Max Susp) 15 ml Q4H PRN PO 10/28/17 14:45 11/27/17 14:44 Magnesium Hydroxide (Milk Of Magnesia Susp) 30 ml Q6H PRN PO 10/28/17 14:45 11/27/17 14:44 Polyethylene (Miralax Powder Packet) 17 gm DAILY PRN PO 10/28/17 14:45 11/27/17 14:44 Zolpidem Tartrate (Ambien Tab) 5 mg HSZ PRN PO 10/28/17 14:45 11/27/17 14:44 Insulin Aspart (novoLOG ASPART) SLIDING SCALE If C... ACHS SC 10/28/17 16:30 11/27/17 16:29 10/29/17 09:04 2 UNITS Glucose (Glucose 40% Gel) 15-30 GRAMS 15 GRAMS... UD PRN PO 10/28/17 14:45 11/27/17 14:44 Glucose (Glucose Chew Tab) 4-8 Tablets 4 Tabl... UD PRN PO 10/28/17 14:45 11/27/17 14:44 Dextrose (Dextrose 50% 50ML Syringe) 25-50ML OF 50% DW IV FOR... UD PRN IV 10/28/17 14:45 11/27/17 14:44 Glucagon (Glucagon Inj) 1 mg UD PRN SQ 10/28/17 14:45 11/27/17 14:44 Carvedilol (Coreg Tab) 12.5 mg QAM PO 10/29/17 08:00 11/28/17 07:59 10/29/17 09:00 12.5 MG (Corine Reagan, PA-C) Objective Vital Signs Date Time Temp Pulse Resp B/P (MAP) Pulse Ox O2 Delivery O2 Flow Rate FiO2 10/29/17 07:15 Room Air 10/29/17 07:04 36.8 69 20 121/71 (88) 94 Room Air 10/29/17 00:00 Room Air 10/28/17 23:27 36.5 68 20 151/75 (100) 99 CPAP 10/28/17 16:22 94 Room Air 10/28/17 15:54 36.7 77 18 134/78 (96) 94 Room Air 10/28/17 11:28 36.6 101 18 137/74 Room Air 10/28/17 11:12 36.6 101 18 137/74 (95) 95 Room Air (Corine Reagan, PA-C) Physical Exam General Appearance: no apparent distress, + obese Eyes: normal inspection, PERRL ENT: hearing grossly normal Neck: supple Respiratory/Chest: lungs clear, no respiratory distress, no accessory muscle use Cardiovascular: regular rate, rhythm Abdomen: normal bowel sounds, non tender, soft Extremities: no pedal edema, no calf tenderness Neurologic/Psychiatric: alert, normal mood/affect, oriented x 3 Skin: normal color, warm/dry, no rash (Corine Reagan, CHERELLE) Laboratory Results Last 24 Hours Test 10/28/17 13:24 10/28/17 17:25 10/28/17 19:18 10/28/17 20:03 Bedside Glucose 225 mg/dl 217 mg/dl 212 mg/dl White Blood Count 12.97 K/uL Red Blood Count 3.57 M/uL Hemoglobin 11.0 g/dL Hematocrit 31.8 % Mean Corpuscular Volume 89.1 fL Mean Corpuscular Hemoglobin 30.8 pg Mean Corpuscular Hemoglobin Concent 34.6 g/dl Platelet Count 226 K/uL Mean Platelet Volume 9.4 fL Neutrophils (%) (Auto) 78.7 % Lymphocytes (%) (Auto) 11.9 % Monocytes (%) (Auto) 8.6 % Eosinophils (%) (Auto) 0.5 % Basophils (%) (Auto) 0.1 % Neutrophils # (Auto) 10.22 K/uL Lymphocytes # (Auto) 1.54 K/uL Monocytes # (Auto) 1.11 K/uL Eosinophils # (Auto) 0.06 K/uL Basophils # (Auto) 0.01 K/uL RDW Standard Deviation 41.8 fL RDW Coefficient of Variation 12.9 % Immature Granulocyte % (Auto) 0.2 % Immature Granulocyte # (Auto) 0.03 K/uL Prothrombin Time 11.0 SECONDS Prothromb Time International Ratio 1.0 Sodium Level 135 mmol/L Potassium Level 3.8 mmol/L Chloride Level 102 mmol/L Carbon Dioxide Level 25 mmol/L Anion Gap 8.0 mmol/L Blood Urea Nitrogen 11 mg/dl Creatinine 0.89 mg/dl Est Creatinine Clear Calc Drug Dose 130.7 ml/min Estimated GFR () 107.0 Estimated GFR (Non- 92.3 BUN/Creatinine Ratio 12.2 Random Glucose 220 mg/dl Calcium Level 8.3 mg/dl Total Bilirubin 1.1 mg/dl Aspartate Amino Transf (AST/SGOT) 33 U/L Alanine Aminotransferase (ALT/SGPT) 86 U/L Alkaline Phosphatase 57 U/L Total Protein 6.8 gm/dl Albumin 3.0 gm/dl Globulin 3.8 gm/dl Albumin/Globulin Ratio 0.8 Test 10/29/17 05:48 10/29/17 07:22 White Blood Count 9.88 K/uL Red Blood Count 3.34 M/uL Hemoglobin 10.2 g/dL Hematocrit 30.2 % Mean Corpuscular Volume 90.4 fL Mean Corpuscular Hemoglobin 30.5 pg Mean Corpuscular Hemoglobin Concent 33.8 g/dl Platelet Count 170 K/uL Mean Platelet Volume 9.1 fL Neutrophils (%) (Auto) 77.3 % Lymphocytes (%) (Auto) 11.2 % Monocytes (%) (Auto) 9.4 % Eosinophils (%) (Auto) 1.7 % Basophils (%) (Auto) 0.2 % Neutrophils # (Auto) 7.63 K/uL Lymphocytes # (Auto) 1.11 K/uL Monocytes # (Auto) 0.93 K/uL Eosinophils # (Auto) 0.17 K/uL Basophils # (Auto) 0.02 K/uL RDW Standard Deviation 42.9 fL RDW Coefficient of Variation 13.1 % Immature Granulocyte % (Auto) 0.2 % Immature Granulocyte # (Auto) 0.02 K/uL Sodium Level 136 mmol/L Potassium Level 3.7 mmol/L Chloride Level 103 mmol/L Carbon Dioxide Level 27 mmol/L Anion Gap 6.0 mmol/L Blood Urea Nitrogen 11 mg/dl Creatinine 0.58 mg/dl Est Creatinine Clear Calc Drug Dose 200.6 ml/min Estimated GFR () 127.5 Estimated GFR (Non- 110.0 BUN/Creatinine Ratio 18.1 Random Glucose 184 mg/dl Estimated Average Glucose 192 mg/dl Hemoglobin A1c 8.3 % Calcium Level 7.9 mg/dl Total Bilirubin 1.1 mg/dl Aspartate Amino Transf (AST/SGOT) 37 U/L Alanine Aminotransferase (ALT/SGPT) 79 U/L Alkaline Phosphatase 55 U/L Total Protein 6.5 gm/dl Albumin 2.9 gm/dl Globulin 3.6 gm/dl Albumin/Globulin Ratio 0.8 Bedside Glucose 181 mg/dl (Corine Reagan PA-C) Assessment and Plan 62 y/o male, with PMHx of sleep apnea on CPAP, hypertension, psoriasis on Humira , and BPH s/p TURP/BT 3 weeks ago, who presented to [facility] for gross hematuria, dysuria, and urinary retention since 10/27. Patient was most recently admitted to [facility] on 10/13/17 due to sepsis secondary from E.coli UTI- treated w/ IV Cefepime while inpatient and transitioned to Augmentin BID at discharge ( treatment completed on 10/20). Acute urinary retention, gross hematuria, BPH, s/p TURP on 10/04: - Admitted to med/surg - IVF @ 50 ml/hr while NPO for need of possible urologic procedure - IV Morphine PRN for pain management - Follow H&H- STABLE, currently at 10.2; repeat pending for 1300 today - Urology following, appreciate recommendations -- Continue CBI -- Repeat H&H this afternoon -- Possible need for cysto HTN- STABLE: - Holding HCTZ/Losartan, HCTZ/Aldactone - Continue Coreg 12.5 mg daily with hold parameters - Hydralazine IV 10 mg q6 hrs PRN for sbp >170 or dbp >100 T2DM w/ hyperglycemia- hgbA1c 8.3%: - Hold Metformin while inpatient - BSG ACHS and ISS - missile control pilot counselling Psoriasis: Continue Humira Abnormal LFTs, fatty liver: Encourage weight loss/healthy diet IGLESIA: CPAP HS DVT prophylaxis: TEDs/SCDs, ambulation; chemical anticoagulation held due to hematuria Code Status: LEVEL I, FULL Dispo: Discharge to home once medically stable (Corine Reagan, PAEldaC) Reviewed: Pt Seen/Exam by Me (Gypsy Dove MD) History Physician [employer] Salesperson Supervision Note: I interviewed and examined the patient. Discussed with MADELIN Reagan and agree with findings and plan as documented in the note. Any exceptions or clarifications are listed here: CBI has really cleared up this afternoon. I was present in room when Urology came by. Placed slight traction on Joseph bulb to help tamponade. Pt otherwise has no complaints. Vitals reviewed Obese, NAD RRR no mgr CTAB no wcr Abd +BS soft nt ND, Joseph in place with one small clot in tube, otherwise bag with mostly clear to pink-tinged urine/saline Ext no edema 62 yo male here with gross hematuria after recent TURP 3 weeks ago, recent admission for sepsis, UTI. -continue CBI as per Urology -Urol wanted prophylactic abx started-start Rocephin today due to previous h/o FQ resistant E. coli last admission -continue to hold ASA -can restart losartan but hold diuretics for now -can restart diet now as not going to OR today Documented By: Gypsy Dove (Gypsy Dove MD)
[2017-10-29] MEDS ORDERED: HydrALAZINE HCL 20 MG/ML VIAL IV. PRN (10:15)
[2017-10-29 12:01] VITALS: Ht 182.9 cm; Wt 148.6 kg
[2017-10-29 13:13] LABS: HEMATOCRIT 31.1 % (42-52); HEMOGLOBIN 10.5 g/dL (14.0-18.0)
[2017-10-29 16:00] VITALS: O2SAT 93
[2017-10-29 16:02] VITALS: BP 151/73; PULSE 64; TEMP 36.8; O2SAT 93
[2017-10-29] MEDS ORDERED: NURSING VERBAL MED ORDER ONE ×2 (16:15→18:30)
[2017-10-29] MEDS ORDERED: LEVOFLOXACIN / D5W 500 MG in PREMIXED IN D5W 100 ML IV SCH (16:30)
[2017-10-29] MEDS ORDERED: LOSARTAN POTASSIUM 50 MG TAB PO ONE (16:45)
[2017-10-29] MEDS: CEFTRIAXONE SOD INJ 1000 MG in DEXTROSE 5% 50ML IV SCH (17:13)
[2017-10-29] MEDS ORDERED: INSULIN ASPART 100 UNITS/ML 3 ML PEN SC SCH (18:00)
[2017-10-29 23:55] VITALS: BP 118/69; PULSE 79; TEMP 38.6; O2SAT 92
[2017-10-30 01:11] VITALS: TEMP 37.1
[2017-10-30] MEDS: SODIUM CHLORIDE 0.9% 1000ML 1,000 ML IV SCH (02:30)
[2017-10-30] MEDS: INSULIN ASPART 100 UNITS/ML 3 ML PEN SC SCH ×4 (06:30→21:05)
[2017-10-30 07:54] LABS: HEMATOCRIT 29.9 % (42-52); HEMOGLOBIN 9.9 g/dL (14.0-18.0); MEAN CELL VOLUME 91.2 fL (80-100); MEAN CORPUSCULAR HEMOGLOBIN 30.2 pg (25-34); MEAN CORPUSCULAR HGB CONC 33.1 g/dl (32-36); MEAN PLATELET VOLUME 9.8 fL (7.4-10.4); PLATELET COUNT 183 K/uL (130-400); RED CELL DISTRIBUTION WIDTH CV 13.3 % (11.5-14.5); RED CELL DISTRIBUTION WIDTH SD 44.2 fL (36.4-46.3); WHITE BLOOD COUNT 10.24 K/uL (4.8-10.8)
[2017-10-30 08:03] VITALS: BP 133/69; PULSE 70; TEMP 36.9; O2SAT 93
--- NOTE | 2017-10-30 12:42 | Progress Note ---
Subjective Date of Service: Oct 30, 2017. Subjective Pt evaluation today including: conversation w/ patient, physical exam, chart review, conversation w/ building energy consultant pt with fever last pm of 38.5 and started on rocephin no clots overnite and urine clearing today vs yesterday light pink on cbi slow and escobar light off cbi Agreed to observe another 24 hours Hct 29.9 Problem List Medical Problems: (1) Confusion Status: Acute (2) Sepsis Status: Acute (3) Urinary tract infection Status: Acute Objective Vital Signs Date Time Temp Pulse Resp B/P (MAP) Pulse Ox O2 Delivery O2 Flow Rate FiO2 10/30/17 08:03 36.9 70 18 133/69 (90) 93 10/30/17 08:00 Room Air 10/30/17 01:11 37.1 10/30/17 00:00 Room Air 10/29/17 23:55 38.6 79 18 118/69 (85) 92 Room Air 10/29/17 16:02 36.8 64 18 151/73 (99) 93 Room Air 10/29/17 16:00 93 Room Air Laboratory Results Last 24 Hours Test 10/29/17 12:48 10/29/17 17:03 10/29/17 20:32 10/30/17 06:17 Hemoglobin 10.5 g/dL 9.9 g/dL Hematocrit 31.1 % 29.9 % Bedside Glucose 196 mg/dl 174 mg/dl White Blood Count 10.24 K/uL Red Blood Count 3.28 M/uL Mean Corpuscular Volume 91.2 fL Mean Corpuscular Hemoglobin 30.2 pg Mean Corpuscular Hemoglobin Concent 33.1 g/dl RDW Standard Deviation 44.2 fL RDW Coefficient of Variation 13.3 % Platelet Count 183 K/uL Mean Platelet Volume 9.8 fL Test 10/30/17 07:43 10/30/17 11:16 Bedside Glucose 169 mg/dl 200 mg/dl Assessment and Plan . Hct stable over past 24 hours at 29.9 . Will feed and continue CBI. Npo after midnite and will reevaluate in AM Suzette Baugh
[2017-10-30] MEDS: LOSARTAN POTASSIUM 50 MG TAB PO SCH (14:22)
--- NOTE | 2017-10-30 14:56 | Hospitalist Progress Note ---
Hospitalist Progress Note Date of Service Oct 30, 2017. Subjective Pt evaluation today including: conversation w/ patient Voiding: joseph catheter in place Pt feels better, no abd pain. He is still having to be manually flushed recently from a clot, urine escobar red today. Spiked a fever last night. Awaiting urine culture results from [facility] to be faxed over. Denies CP or SOB. Discussed case with Dr. Baugh today-no plans for OR given fever plus hematuria seems to be clearing up All Other Systems: Reviewed and Negative Objective Vital Signs Date Time Temp Pulse Resp B/P (MAP) Pulse Ox O2 Delivery O2 Flow Rate FiO2 10/30/17 08:03 36.9 70 18 133/69 (90) 93 10/30/17 08:00 Room Air 10/30/17 01:11 37.1 10/30/17 00:00 Room Air 10/29/17 23:55 38.6 79 18 118/69 (85) 92 Room Air 10/29/17 16:02 36.8 64 18 151/73 (99) 93 Room Air 10/29/17 16:00 93 Room Air Physical Exam General Appearance: WD/WN, no apparent distress, + obese Eyes: normal inspection, sclerae normal ENT: hearing grossly normal Neck: trachea midline Respiratory/Chest: lungs clear, normal breath sounds, no respiratory distress, no accessory muscle use Cardiovascular: regular rate, rhythm, no edema, no murmur Abdomen: normal bowel sounds, non tender, soft, + pertinent finding (joseph in place with escobar red urine) Extremities: non-tender, normal inspection, no pedal edema, no calf tenderness Neurologic/Psychiatric: alert, normal mood/affect, oriented x 3 Skin: normal color, warm/dry, no rash Laboratory Results Last 24 Hours Test 10/29/17 17:03 10/29/17 20:32 10/30/17 06:17 10/30/17 07:43 Bedside Glucose 196 mg/dl 174 mg/dl 169 mg/dl White Blood Count 10.24 K/uL Red Blood Count 3.28 M/uL Hemoglobin 9.9 g/dL Hematocrit 29.9 % Mean Corpuscular Volume 91.2 fL Mean Corpuscular Hemoglobin 30.2 pg Mean Corpuscular Hemoglobin Concent 33.1 g/dl RDW Standard Deviation 44.2 fL RDW Coefficient of Variation 13.3 % Platelet Count 183 K/uL Mean Platelet Volume 9.8 fL Test 10/30/17 11:16 Bedside Glucose 200 mg/dl Assessment and Plan 62 y/o male, with PMHx of sleep apnea on CPAP, hypertension, psoriasis on Humira , and BPH s/p TURP/BT 3 weeks ago, who presented to [facility] for gross hematuria, dysuria, and urinary retention since 10/27. Patient was most recently admitted to [facility] on 10/13/17 due to sepsis secondary from FQ-resistant E.coli UTI- treated w/ IV Cefepime while inpatient and transitioned to Augmentin BID at discharge (treatment completed on 10/20). Acute urinary retention, gross hematuria, BPH, s/p TURP on 10/04, Fever: hematuria improving but still clotting off with CBI intermittently. Spiked fever last night. WBC up slightly to 10k. Hgb down slightly to 9.9 today from 10.5 - Admitted to med/surg - dc IVFs as is jd po and no longer NPO -Urology following -NPO after midnight in case of need for OR tomorrow - IV Morphine PRN for pain management - Follow CBC -- Continue CBI -continue Rocephin, obtain Ur cx result from [facility] HTN- STABLE: - Holding HCTZ and Aldactone -restarted losartan - Continue Coreg 12.5 mg which is on home med rec as once daily but is a bid drug -he says this is how he is supposed to take it as per his MD - Hydralazine IV 10 mg q6 hrs PRN for sbp >170 or dbp >100 T2DM w/ hyperglycemia- hgbA1c 8.3%: - Hold Metformin while inpatient - BSG ACHS and ISS - nurse informatics educator counselling Psoriasis: Continue Humira as outpt Abnormal LFTs, fatty liver: Encourage weight loss/healthy diet IGLESIA: CPAP HS DVT prophylaxis: TEDs/SCDs, ambulation; chemical anticoagulation held due to hematuria Code Status: LEVEL I, FULL Dispo: Discharge to home once medically stable-kisha Cruz
[2017-10-30 15:08] VITALS: BP 138/77; PULSE 71; TEMP 37; O2SAT 95
[2017-10-30 16:00] VITALS: O2SAT 95
[2017-10-30] MEDS: CEFTRIAXONE SOD INJ 1000 MG in DEXTROSE 5% 50ML IV SCH (16:15)
[2017-10-31] VITALS (7 sets, daily range): BP systolic 116–162; BP diastolic 64–84; PULSE 60–75; TEMP 36.5–37.2; O2SAT 92–95
[2017-10-31] MEDS: INSULIN ASPART 100 UNITS/ML 3 ML PEN SC SCH ×4 (06:30→21:04)
[2017-10-31 06:32] LABS: HEMATOCRIT 28.8 % (42-52); HEMOGLOBIN 9.8 g/dL (14.0-18.0); MEAN CELL VOLUME 90.6 fL (80-100); MEAN CORPUSCULAR HEMOGLOBIN 30.8 pg (25-34); MEAN PLATELET VOLUME 9.3 fL (7.4-10.4); PLATELET COUNT 187 K/uL (130-400); RED CELL DISTRIBUTION WIDTH CV 13.3 % (11.5-14.5); RED CELL DISTRIBUTION WIDTH SD 43.8 fL (36.4-46.3); WHITE BLOOD COUNT 8.63 K/uL (4.8-10.8)
[2017-10-31 07:03] LABS: ALBUMIN 2.6 gm/dl (3.4-5.0); CALCIUM 8.1 mg/dl (8.5-10.1); CREATININE 0.53 mg/dl (0.60-1.40); POTASSIUM 3.5 mmol/L (3.5-5.1)
[2017-10-31 07:05] LABS: TOTAL PROTEIN 6.4 gm/dl (6.4-8.2)
--- NOTE | 2017-10-31 11:12 | Progress Note ---
Subjective Date of Service: Oct 31, 2017. Subjective Pt evaluation today including: conversation w/ patient, physical exam, chart review, lab review, conversation w/ school plant consultant pt with clear urine on cbi since late afternoon . He did have 2 episodes where the catheter clotted off with old dark clots that need to be irrigated . Discussed removing catheter now vs letting bladder rest and urethra heal another 24 hours and elected to do the latter especially given his fever 2 nights ago. Problem List Medical Problems: (1) Confusion Status: Acute (2) Sepsis Status: Acute (3) Urinary tract infection Status: Acute Objective Vital Signs Date Time Temp Pulse Resp B/P (MAP) Pulse Ox O2 Delivery O2 Flow Rate FiO2 10/31/17 08:00 Room Air 10/31/17 07:41 37.2 60 18 139/67 (91) 95 10/31/17 02:00 75 93 10/31/17 00:02 36.5 70 18 145/67 (93) 92 Room Air 10/31/17 00:00 Room Air 10/30/17 16:00 95 Room Air 10/30/17 15:08 37.0 71 18 138/77 (97) 95 Laboratory Results Last 24 Hours Test 10/30/17 11:16 10/30/17 16:28 10/30/17 20:14 10/31/17 05:48 Bedside Glucose 200 mg/dl 181 mg/dl 199 mg/dl White Blood Count 8.63 K/uL Red Blood Count 3.18 M/uL Hemoglobin 9.8 g/dL Hematocrit 28.8 % Mean Corpuscular Volume 90.6 fL Mean Corpuscular Hemoglobin 30.8 pg Mean Corpuscular Hemoglobin Concent 34.0 g/dl RDW Standard Deviation 43.8 fL RDW Coefficient of Variation 13.3 % Platelet Count 187 K/uL Mean Platelet Volume 9.3 fL Sodium Level 134 mmol/L Potassium Level 3.5 mmol/L Chloride Level 104 mmol/L Carbon Dioxide Level 24 mmol/L Anion Gap 6.0 mmol/L Blood Urea Nitrogen 11 mg/dl Creatinine 0.53 mg/dl Est Creatinine Clear Calc Drug Dose 219.5 ml/min Estimated GFR () 132.4 Estimated GFR (Non- 114.2 BUN/Creatinine Ratio 19.7 Random Glucose 160 mg/dl Calcium Level 8.1 mg/dl Total Bilirubin 0.8 mg/dl Direct Bilirubin 0.2 mg/dl Aspartate Amino Transf (AST/SGOT) 35 U/L Alanine Aminotransferase (ALT/SGPT) 67 U/L Alkaline Phosphatase 63 U/L Total Protein 6.4 gm/dl Albumin 2.6 gm/dl Test 10/31/17 07:30 Bedside Glucose 165 mg/dl Assessment and Plan . Hct down slightly over past 24 hours at 29.9 . Will feed and stop CBI. Npo after midnite and will reevaluate in AM Suzette Baugh
[2017-10-31] MEDS: LOSARTAN POTASSIUM 50 MG TAB PO SCH (11:14)
[2017-10-31] MEDS: CARVEDILOL 12.5 MG TAB PO SCH (11:14)
--- NOTE | 2017-10-31 11:37 | Hospitalist Progress Note ---
Hospitalist Progress Note Date of Service Oct 31, 2017. (Corine Reagan ., JERRYC) Subjective Pt evaluation today including: conversation w/ patient, physical exam, lab review, review of studies, review of inpatient medication list Voiding: joseph catheter in place (draining clear/yellow urine ) Patient resting in bed. Eating and drinking OK. Joseph in place- draining clear/yellow urine. Patient states he most recently passes a clot this AM around 0600. Patient denies any fever, chills, sweats, lightheadedness, dizziness, vision changes, CP, palpitations, edema, SOB, wheezing, cough, abdominal pain, nausea, vomiting, diarrhea, melena, numbness/tingling, weakness, muscle/joint pain, anxiety/depression, active bleeding, or new skin discoloration/changes. (Corine Reagan ., JERRYC) Medications Current Inpatient Medications Medications (Trade) Dose Ordered Sig/Sherri Route Start Time Stop Time Status Last Admin Dose Admin Morphine Sulfate (MoRPHine SULFATE INJ) 1 mg Q6H PRN IV 10/28/17 13:30 11/11/17 13:29 Acetaminophen (Tylenol Tab) 650 mg Q4H PRN PO 10/28/17 14:45 11/27/17 14:44 10/29/17 23:28 650 MG Al Hydrox/Mg Hydrox/Simethicone (Maalox Max Susp) 15 ml Q4H PRN PO 10/28/17 14:45 11/27/17 14:44 Magnesium Hydroxide (Milk Of Magnesia Susp) 30 ml Q6H PRN PO 10/28/17 14:45 11/27/17 14:44 Polyethylene (Miralax Powder Packet) 17 gm DAILY PRN PO 10/28/17 14:45 11/27/17 14:44 Zolpidem Tartrate (Ambien Tab) 5 mg HSZ PRN PO 10/28/17 14:45 11/27/17 14:44 Glucose (Glucose 40% Gel) 15-30 GRAMS 15 GRAMS... UD PRN PO 10/28/17 14:45 11/27/17 14:44 Glucose (Glucose Chew Tab) 4-8 Tablets 4 Tabl... UD PRN PO 10/28/17 14:45 11/27/17 14:44 Dextrose (Dextrose 50% 50ML Syringe) 25-50ML OF 50% DW IV FOR... UD PRN IV 10/28/17 14:45 11/27/17 14:44 Glucagon (Glucagon Inj) 1 mg UD PRN SQ 10/28/17 14:45 11/27/17 14:44 Carvedilol (Coreg Tab) 12.5 mg QAM PO 10/29/17 08:00 11/28/17 07:59 10/31/17 11:14 12.5 MG Hydralazine HCl (HydrALAZINE INJ) 10 mg Q6H PRN IV. 10/29/17 10:15 11/28/17 10:14 Ceftriaxone Sodium 1 gm/ Dextrose 50 ml @ 100 mls/hr DAILY@1600 IV 10/29/17 17:00 11/08/17 15:59 10/30/17 16:15 100 MLS/HR Losartan Potassium (coZAAR TAB) 100 mg QAM PO 10/30/17 08:00 11/29/17 07:59 10/31/17 11:14 100 MG Insulin Aspart (novoLOG ASPART) SLIDING SCALE If C... ACHS SC 10/29/17 22:00 11/28/17 21:59 10/30/17 21:05 2 UNITS (Corine Reagan, MADLEIN-C) Objective Vital Signs Date Time Temp Pulse Resp B/P (MAP) Pulse Ox O2 Delivery O2 Flow Rate FiO2 10/31/17 11:13 62 129/69 (89) 10/31/17 08:00 Room Air 10/31/17 07:41 37.2 60 18 139/67 (91) 95 10/31/17 02:00 75 93 10/31/17 00:02 36.5 70 18 145/67 (93) 92 Room Air 10/31/17 00:00 Room Air 10/30/17 16:00 95 Room Air 10/30/17 15:08 37.0 71 18 138/77 (97) 95 (Corine Reagan PA-C) Physical Exam General Appearance: no apparent distress, + obese Eyes: normal inspection, PERRL ENT: hearing grossly normal Neck: supple Respiratory/Chest: lungs clear, no respiratory distress, no accessory muscle use Cardiovascular: regular rate, rhythm Abdomen: normal bowel sounds, non tender, soft Extremities: no pedal edema, no calf tenderness Neurologic/Psychiatric: alert, normal mood/affect, oriented x 3 Skin: normal color, warm/dry, no rash (Corine Reagan PA-C) Laboratory Results Last 24 Hours Test 10/30/17 16:28 10/30/17 20:14 10/31/17 05:48 10/31/17 07:30 Bedside Glucose 181 mg/dl 199 mg/dl 165 mg/dl White Blood Count 8.63 K/uL Red Blood Count 3.18 M/uL Hemoglobin 9.8 g/dL Hematocrit 28.8 % Mean Corpuscular Volume 90.6 fL Mean Corpuscular Hemoglobin 30.8 pg Mean Corpuscular Hemoglobin Concent 34.0 g/dl RDW Standard Deviation 43.8 fL RDW Coefficient of Variation 13.3 % Platelet Count 187 K/uL Mean Platelet Volume 9.3 fL Sodium Level 134 mmol/L Potassium Level 3.5 mmol/L Chloride Level 104 mmol/L Carbon Dioxide Level 24 mmol/L Anion Gap 6.0 mmol/L Blood Urea Nitrogen 11 mg/dl Creatinine 0.53 mg/dl Est Creatinine Clear Calc Drug Dose 219.5 ml/min Estimated GFR () 132.4 Estimated GFR (Non- 114.2 BUN/Creatinine Ratio 19.7 Random Glucose 160 mg/dl Calcium Level 8.1 mg/dl Total Bilirubin 0.8 mg/dl Direct Bilirubin 0.2 mg/dl Aspartate Amino Transf (AST/SGOT) 35 U/L Alanine Aminotransferase (ALT/SGPT) 67 U/L Alkaline Phosphatase 63 U/L Total Protein 6.4 gm/dl Albumin 2.6 gm/dl (Corine Reagan, JERRYC) Assessment and Plan 62 y/o male, with PMHx of sleep apnea on CPAP, hypertension, psoriasis on Humira , and BPH s/p TURP/BT 3 weeks ago, who presented to [facility] for gross hematuria, dysuria, and urinary retention since 10/27. Patient was most recently admitted to [facility] on 10/13/17 due to sepsis secondary from E.coli UTI- treated w/ IV Cefepime while inpatient and transitioned to Augmentin BID at discharge ( treatment completed on 10/20). Acute urinary retention, gross hematuria, BPH s/p TURP on 10/04: - Admitted to med/surg - IVF @ 50 ml/hr d/c'd due to tolerating PO - IV Morphine PRN for pain management - Follow H&H- STABLE, currently at 9.8 - IV Rocephin- started on 10/29- UCx results requested from from [facility] My[facility]- no fevers overnight - Urology following, appreciate recommendations -- Continue CBI -- Follow H&H -- Possible need for cysto- NPO after midnight HTN- STABLE: - Holding HCTZ/Aldactone - Continue Coreg 12.5 mg daily with hold parameters, Losartan 100 mg QAM - Hydralazine IV 10 mg q6 hrs PRN for sbp >170 or dbp >100 T2DM w/ hyperglycemia- hgbA1c 8.3%: - Hold Metformin while inpatient - BSG ACHS and ISS - educator senior clinical counselling Psoriasis: Continue Humira Abnormal LFTs, fatty liver: Encourage weight loss/healthy diet IGLESIA: CPAP HS DVT prophylaxis: TEDs/SCDs, ambulation; chemical anticoagulation held due to hematuria/anemia Code Status: LEVEL I, FULL Dispo: Discharge to home once medically stable- possible discharge within the next 1 day as per urology (Corine Reagan, PA-C) Reviewed: Pt Seen/Exam by Me (Grace Davenport DO) History Pt has no new concerns today. Feeling improved. No further clots passing and states that irrigation has been turned off of joseph. Tolerating PO without issue. No chest pain or SOB. Agree with HPI/ROS as noted by PAC (Grace Davenport DO) General Appearance: no apparent distress, obese Respiratory: normal breath sounds, no respiratory distress Cardiovascular: normal peripheral pulses, regular rate, rhythm Gastrointestinal: non tender, soft Extremities: non-tender, no pedal edema Neurologic/Psychiatric: alert, oriented x 3 Skin Characteristics: normal color, warm/dry (Grace Davenport DO) Assessment/Plan Agree with plan as outlined above Admitted with hematuria, followed by urology Monitoring Hb and will reassess tomorrow for possible need for OR s/p TURP 3 weeks ago (Grace Davenport DO)
[2017-10-31] MEDS: CEFTRIAXONE SOD INJ 1000 MG in DEXTROSE 5% 50ML IV SCH (15:45)
[2017-11-01] MEDS ORDERED: CEPHALEXIN MONOHYDRATE 500 MG CAP PO SCH
[2017-11-01 00:10] VITALS: PULSE 71; O2SAT 94
[2017-11-01] MEDS: INSULIN ASPART 100 UNITS/ML 3 ML PEN SC SCH ×2 (06:30→12:44)
[2017-11-01 06:57] LABS: HEMATOCRIT 30.2 % (42-52); HEMOGLOBIN 10.4 g/dL (14.0-18.0); MEAN CELL VOLUME 89.9 fL (80-100); MEAN CORPUSCULAR HGB CONC 34.4 g/dl (32-36); MEAN PLATELET VOLUME 9.1 fL (7.4-10.4); PLATELET COUNT 197 K/uL (130-400); RED CELL DISTRIBUTION WIDTH CV 13.2 % (11.5-14.5); WHITE BLOOD COUNT 7.98 K/uL (4.8-10.8)
[2017-11-01 06:58] VITALS: BP 146/76; PULSE 57; TEMP 36.8; O2SAT 94
[2017-11-01 08:00] VITALS: O2SAT 92
[2017-11-01] MEDS: CARVEDILOL 12.5 MG TAB PO SCH (08:25)
[2017-11-01] MEDS: LOSARTAN POTASSIUM 50 MG TAB PO SCH (08:26)
--- NOTE | 2017-11-01 10:26 | Progress Note ---
Subjective Date of Service: Nov 01, 2017. Subjective Pt evaluation today including: conversation w/ patient, physical exam, chart review, review of studies urine clear off cbi overnite. Joseph removed with some red in bag when joseph removed Problem List Medical Problems: (1) Confusion Status: Acute (2) Sepsis Status: Acute (3) Urinary tract infection Status: Acute Objective Vital Signs Date Time Temp Pulse Resp B/P (MAP) Pulse Ox O2 Delivery O2 Flow Rate FiO2 11/01/17 06:58 36.8 57 18 146/76 (99) 94 11/01/17 00:10 71 94 11/01/17 00:00 CPAP 10/31/17 22:59 36.8 65 20 162/84 (110) 95 Room Air 10/31/17 16:00 92 Room Air 10/31/17 15:47 36.9 61 20 116/64 (81) 92 Room Air 10/31/17 11:13 62 129/69 (89) Laboratory Results Last 24 Hours Test 10/31/17 11:10 10/31/17 16:26 10/31/17 20:00 11/01/17 06:28 Bedside Glucose 177 mg/dl 197 mg/dl 176 mg/dl White Blood Count 7.98 K/uL Red Blood Count 3.36 M/uL Hemoglobin 10.4 g/dL Hematocrit 30.2 % Mean Corpuscular Volume 89.9 fL Mean Corpuscular Hemoglobin 31.0 pg Mean Corpuscular Hemoglobin Concent 34.4 g/dl RDW Standard Deviation 43.0 fL RDW Coefficient of Variation 13.2 % Platelet Count 197 K/uL Mean Platelet Volume 9.1 fL Test 11/01/17 07:36 Bedside Glucose 173 mg/dl Assessment and Plan If pt able to void can d/c on antibiotic
[2017-11-01] MEDS ORDERED: CEPH500C PO (10:35)
--- NOTE | 2017-11-01 10:38 | Discharge Instructions ---
Discharge Instructions Date of Service Nov 01, 2017. Admission Reason for Admission: Hematuria Discharge Discharge Diagnosis / Problem: uti and post op Turp hemmorrhage Discharge Goals Goal(s): Increase independence, Improve disease control Activity Recommendations Activity Limitations: per Instructions/Follow-up section (light activity for 2 weeks ) . Current Hospital Diet Patient's current hospital diet: Diabetes Type 2 Diet Discharge Diet Recommended Diet: Diabetes Type 2 Diet Pending Studies Studies pending at discharge: no Laboratory Results Hemoglobin A1c Test 10/29/17 05:48 Range/Units Estimated Average Glucose 192 mg/dl Hemoglobin A1c 8.3 H 4.5-5.6 % Medical Emergencies . Who to Call and When: Medical Emergencies: If at any time you feel your situation is an emergency, please call 911 immediately. . Non-Emergent Contact Non-Emergency issues call your: Urologist . . "Provider Documentation" section prepared by Barry Baugh. . VTE Core Measure Inpt VTE Proph given/why not?: SCD's
--- NOTE | 2017-11-01 11:05 | Discharge Summary ---
Discharge Summary Date of Service Nov 01, 2017. Discharge Summary Admission Date: Oct 28, 2017 at 14:40 Discharge Date: Nov 01, 2017 Discharge Disposition: Home Principal Diagnosis: Hematuria s/p TURP, UTI Problems/Secondary Diagnoses: Acute urinary retention gross hematuria BPH s/p TURP on 10/04 HTN T2DM w/ hyperglycemia- hgbA1c 8.3% Psoriasis Abnormal LFTs, fatty liver IGLESIA Immunizations: Have You Had Influenza Vaccine: N/A History of Tetanus Vaccine?: Yes History of Pneumococcal: No History of Hepatitis B Vaccine: No Consultations: Urology- Dr. Baugh Medication Reconciliation New Medications: Cephalexin Monohydrate (Keflex) 500 Mg Cap 500 MG PO QID, #30 CAP Continued Medications: Adalimumab (Humira Pen) 40 Mg/0.8 Ml Kit 40 MG SQ Q2 WK Carvedilol (Coreg) 12.5 Mg Tab 12.5 MG PO QAM, TAB Dutasteride (Avodart) 0.5 Mg Cap 0.5 MG PO QAM, CAP Fiber Laxative (Fiber Laxative) Ea 1 TAB PO QAM Hctz/Losartan (Hyzaar 25MG/100MG) Tab 1 TAB PO DAILY, TAB Hctz/Spironolactone (Spironolactone/Hydrochlor 25-25 mg) 1 Ea Tab 1 TAB PO QAM Metformin Hcl (Glucophage Ext Rel) 1,000 Mg Tab 1000 MG PO BID, TAB Multivitamin (Multivitamin) Tab 1 TAB PO QAM, TAB Saccharomyces Boulardii (Probiotic) 250 Mg Cap 1 CAP PO BID Discontinued Medications: Aspirin (Aspirin Ec) 81 Mg Tab 81 MG PO QAM Referrals At Discharge Follow up Referrals: Family Practice Referral - Within 1-2 Weeks with Edgardo Frazier M.D. Discharge Exam Review of Systems: Constitutional: No fever, No chills, No sweats, No weakness, No fatigue Eyes: No worsening of vision ENT: No hearing loss Respiratory: No cough, No shortness of breath, No hemoptysis Cardiovascular: No chest pain, No edema, No palpitations Abdomen: No pain, No nausea, No vomiting, No diarrhea, No constipation Musculoskeletal: No joint pain, No muscle pain, No swelling, No calf pain Neurologic: No weakness, No numbness/tingling Psychiatric: No depression symptoms, No anxiety Endocrine: No fatigue Hematologic / Lymphatic: No abnormal bleeding/bruising Integumentary: No rash, No itch, No new/changing skin lesions Physical Exam: General Appearance: no apparent distress, + obese Eyes: normal inspection, PERRL ENT: hearing grossly normal Neck: supple Respiratory/Chest: lungs clear, no respiratory distress, no accessory muscle use Cardiovascular: regular rate, rhythm Abdomen / GI: normal bowel sounds, non tender, soft, + pertinent finding (+ Flores- clear/yellow urine ) Extremities: no calf tenderness, no pedal edema Neurologic/Psychiatric: alert, normal mood/affect, oriented x 3 Skin: normal color, warm/dry, no rash Hospital Course Admission H&P: 62 years old man with past medical history of diabetes mellitus non-insulin- requiring, sleep apnea on CPAP, hypertension, psoriasis on Humira and benign prostatic enlargement status post TURP/BT 3 weeks ago. Patient was in his regular state of health. After after urinary outflow improved significantly. Yesterday the patient self urinary retention, spasm his penis, pelvic pressure and discomfort. Patient went to the bathroom he passed a piece of blood clot and since then he has been having hematuria. Transferred from outside facility to our hospital as his urologist comes to our hospital. Started on CBI pain. Hematuria started to clear. Physical Exam Vital Signs Date Time Temp Pulse Resp B/P (MAP) Pulse Ox O2 Delivery O2 Flow Rate FiO2 10/28/17 15:54 36.7 77 18 134/78 (96) 94 Room Air 10/28/17 11:28 36.6 101 18 137/74 Room Air 10/28/17 11:12 36.6 101 18 137/74 (95) 95 Room Air General Appearance: WD/WN, no apparent distress Head: normocephalic, atraumatic Eyes: normal inspection, EOMI ENT: normal ENT inspection, hearing grossly normal Neck: supple Respiratory/Chest: chest non-tender, lungs clear, normal breath sounds, no respiratory distress, no accessory muscle use Cardiovascular: regular rate, rhythm, no edema, no gallop, no JVD, no murmur, normal peripheral pulses Abdomen/GI: normal bowel sounds, non tender, soft, no organomegaly, no pulsatile mass Genitourinary - Male: normal male genitalia Back: normal inspection Extremities/Musculoskelatal: normal inspection, no calf tenderness, normal capillary refill, no pedal edema Neurologic/Psych: fx artist II-XII nml as tested, no motor/sensory deficits, alert, normal mood/affect, normal reflexes, oriented x 3 Skin: normal color, warm/dry, no rash Denies any fever or chills Lives with his Father from leukemia on year Hospital Course: 62 y/o male, with PMHx of sleep apnea on CPAP, hypertension, psoriasis on Humira , and BPH s/p TURP/BT 3 weeks ago, who presented to [facility] for gross hematuria, dysuria, and urinary retention since 10/27. Patient was most recently admitted to [facility] on 10/13/17 due to sepsis secondary from E.coli UTI- treated w/ IV Cefepime while inpatient and transitioned to Augmentin BID at discharge ( treatment completed on 10/20). Acute urinary retention, gross hematuria, BPH s/p TURP on 10/04, UTI: - Admitted to med/surg - IVF @ 50 ml/hr d/c'd due to tolerating PO - IV Morphine PRN for pain management - Follow H&H- STABLE, currently at 10.4 - IV Rocephin- started on 10/29- UCx results requested from from [facility] My[facility] -- Discharged on Keflex 500 mg QID as per Urology - Urology following, appreciate recommendations -- Treated w/ CIB- Flores removed prior to discharge w/ void trial HTN- STABLE: - Holding HCTZ/Aldactone- resume at discharge - Continue Coreg 12.5 mg daily with hold parameters, Losartan 100 mg QAM - Hydralazine IV 10 mg q6 hrs PRN for sbp >170 or dbp >100 T2DM w/ hyperglycemia- hgbA1c 8.3%: - Hold Metformin while inpatient- resume at discharge - BSG ACHS and ISS - automatic grinder operator counselling Psoriasis: Continue Humira Abnormal LFTs, fatty liver: Encourage weight loss/healthy diet IGLESIA: CPAP HS DVT prophylaxis: TEDs/SCDs, ambulation; chemical anticoagulation held due to hematuria/anemia Code Status: LEVEL I, FULL Dispo: Discharge to home Total Time Spent: Greater than 30 minutes This includes examination of the patient, discharge planning, medication reconciliation, and communication with other providers. Discharge Instructions Please refer to the electronic Patient Visit Report (Discharge Instructions) for additional information. Follow-Up Please follow-up with your PCP within 5-7 days Please follow-up with Urology as instructed by Dr. Baugh Please follow-up/keep all of your subspecialty appointments Additional Copies To Edgardo Frazier M.D. Reviewed: Pt Seen/Exam by Me History Pt is doing well today. Flores was taken out earlier this AM and no pain or passing clots. Urology noted some pink at cath d/c but no greer bleeding. Pt is doing well otherwise. Tolerating PO well. Agree with HPI/ROS as noted by PAC General Appearance: no apparent distress, obese Respiratory: normal breath sounds, no respiratory distress Cardiovascular: normal peripheral pulses, regular rate, rhythm Gastrointestinal: non tender, soft Extremities: non-tender, no pedal edema Neurologic/Psychiatric: alert, normal mood/affect, oriented x 3 Skin Characteristics: normal color, warm/dry Assessment/Plan Agree with plan as outlined above Admitted with hematuria, followed by urology Hb continues to improve after bleeding Pt is s/p TURP 3 weeks ago Flores d/c'd and urology is planning for d/c if urinating well and no bleeding d/c on keflex
--- NOTE | 2017-11-01 11:06 | Discharge Instructions ---
Discharge Instructions Date of Service Nov 01, 2017. Admission Reason for Admission: Hematuria Discharge Discharge Diagnosis / Problem: Hematuria s/p TURP, urinary tract infection Discharge Goals Goal(s): Decrease discomfort, Improve disease control, Learn about illness, Diagnostic testing, Therapeutic intervention, Prevent Disease Progression Activity Recommendations Activity Limitations: per Instructions/Follow-up section (As per urology recommendations ) . Instructions / Follow-Up Instructions / Follow-Up Urinary tract infection: Keflex 500 mg four times daily until prescription is completed STOP Aspirin daily Resume all other regular home medications as prescribed FOLLOW-UPS: Please follow-up with your PCP within 5-7 days Please follow-up with Urology as instructed by Dr. Baugh Please follow-up/keep all of your subspecialty appointments Current Hospital Diet Patient's current hospital diet: Diabetes Type 2 Diet Discharge Diet Recommended Diet: Diabetes Type 2 Diet Pending Studies Studies pending at discharge: no Laboratory Results Hemoglobin A1c Test 10/29/17 05:48 Range/Units Estimated Average Glucose 192 mg/dl Hemoglobin A1c 8.3 H 4.5-5.6 % Medical Emergencies . Who to Call and When: Medical Emergencies: If at any time you feel your situation is an emergency, please call 911 immediately. . Non-Emergent Contact Non-Emergency issues call your: Primary Care Provider, Urologist Call Non-Emergent contact if: you have a fever, your pain is not controlled, your pain is worsening, your pain is unusual for you, your pain is concerning you, you have any medication questions . . "Provider Documentation" section prepared by Corine Reagan. . VTE Core Measure Inpt VTE Proph given/why not?: SCD's
[2017-11-01] MEDS: CEFTRIAXONE SOD INJ 1000 MG in DEXTROSE 5% 50ML IV SCH (12:44)
[2017-11-01] MEDS ORDERED: CEPH-571 PO (12:59)
[2017-11-01 14:08] VITALS: BP 146/76; PULSE 57; TEMP 36.8; O2SAT 92
--- NOTE | 2017-11-09 07:38 | EDITING REQUIRED CODING QUERY ---
ANEMIA To promote full compliance with coding requirements relating to patient care, physician participation is requested in all cases of pediatric physical therapist uncertainty. Please assist us with the question(s) below: Coding Question(s): The record reflects the following clinical findings: HGB: 9.8 and HCT: 28.8 on 10/31. If these findings are indicative of anemia, please specify the known or suspected type by placing an "X" within the parenthesis (x). If other, please document type. Examples are: ( x) Acute blood loss anemia ( ) Acute Postoperative blood loss anemia ( ) Acute postoperative anemia due to dilutional fluids ( ) Chronic blood loss anemia ( ) Anemia of chronic disease ( ) Aplastic anemia ( ) Anemia due to renal disease ( ) Anemia in neoplastic disease ( ) Iron deficient anemia ( ) Anemia, unspecified or other ( ) Other: (please specify) ( ) Unable to determine Thank you for your time, JAIMEE Bautista, MANAGER CREDIT
== END 2017-11-01 15:35 | disposition home or self-care (01) | DRG 920 ==
LOC: C.MS4W 11:10 → UNDOADMIN 11:10 → C.MS4W 14:40
PROVIDERS: ADMIT Family Medicine; ATTEND Family Medicine
DX: N99.820 Postprocedural hemorrhage of a genitourinary system organ or structure following a genitourinary system procedure (principal); N17.9 Acute kidney failure, unspecified; N39.0 Urinary tract infection, site not specified; Z68.41 Body mass index [BMI] 40.0-44.9, adult; D62 Acute posthemorrhagic anemia; E11.65 Type 2 diabetes mellitus with hyperglycemia; Y83.6 Removal of other organ (partial) (total) as the cause of abnormal reaction of the patient, or of later complication, without mention of misadventure at the time of the procedure; R31.0 Gross hematuria; R33.9 Retention of urine, unspecified; K76.0 Fatty (change of) liver, not elsewhere classified; R94.5 Abnormal results of liver function studies; I10 Essential (primary) hypertension; L40.9 Psoriasis, unspecified; G47.33 Obstructive sleep apnea (adult) (pediatric); E66.9 Obesity, unspecified; Z98.890 Other specified postprocedural states; Z99.89 Dependence on other enabling machines and devices; Z79.82 Long term (current) use of aspirin; Z79.84 Long term (current) use of oral hypoglycemic drugs; Z79.899 Other long term (current) drug therapy

== ENCOUNTER 2025-05-19 10:41 | Inpatient (IN) ==
--- NOTE | 2025-05-19 11:15 | Emergency Department Note ---
Impression & Plan Sepsis, Thrombocytopenia ED Provider Note NAME: LALO VILLARREAL AGE: 70 SEX: M : 1955 ARRIVES VIA: Ambulance INFORMANT: Patient, , EMS ED PROVIDER(S): Wander Tao DO CHIEF COMPLAINT: weakness HPI: This is a 70-year-old male with the PMHx of recently diagnosed pneumonia overnight, BPH with urinary retention, prior bladder cancer, s/p TURP, and psoriatic arthritis on adalimumab presenting to [facility] for further evaluation of fevers, chills and weakness. Patient is accompanied by EMS who provide additional history. They report he was in the emergency room overnight and diagnosed with pneumonia. Required 3+ person assist. Patient was started on dual coverage antibiotics but he has not been able to pick these up from the pharmacy. His presented to the bedside and provided further history. She states that he has been unable to ambulate efficiently. He has been extremely weak. Still spiking fevers. She is concerned for possible tickborne illnesses. He continues to have fevers and chills at home. Patient states that he is able to drink some but has no appetite. He reports that he has not been voiding like he normally does. No cough or congestion. Denies chest pain or palpitations. No shortness of breath. They deny abdominal pain, nausea and vomiting. No urinary complaints. No recent changes in bowel movements. Patient denies recent changes in medications or OTC supplements. Patient offers no other complaints, today. ADDITIONAL HISTORY OBTAINED: Per HPI Chronic Medical/Social Conditions Affecting Care: Per HPI PAST MEDICAL HISTORY: See Below PAST SURGICAL HISTORY: See Below FAMILY HISTORY: See Below SOCIAL HISTORY: See Below HOME MEDICATIONS: See Below ALLERGIES: See Below VITALS: See Below PHYSICAL EXAMINATION: GENERAL: Sitting up in bed, alert, ill appearing, no distress, non-toxic EYE EXAM: normal conjunctiva. PERRL and EOM's grossly intact. OROPHARYNX: no exudate, no erythema, lips, buccal mucosa, and tongue normal and mucous membranes are dry NECK: supple, no nuchal rigidity, no adenopathy, non-tender LUNGS: Clear to auscultation. Normal chest wall mechanics HEART: no murmurs, regular rate, regular rhythm ABDOMEN: abdomen soft, non-tender, normo-active bowel sounds, no masses, no rebound or guarding. BACK: Back is symmetrical on inspection and there is no deformity, no midline tenderness, no CVA tenderness. SKIN: no rashes and no bruising UPPER EXTREMITIES: upper extremities are grossly normal. LOWER EXTREMITIES: No pitting edema. NEURO EXAM: Normal sensorium, cranial nerves II-XII grossly intact, normal speech, no gross weakness of arms, no gross weakness of legs. No drift. Finger to nose intact. Gross sensation intact. MEDICAL DECISION MAKING: Differential diagnoses includes but not limited to sepsis, bacteremia, viral URI, pneumonia, complicated UTI, prostatitis, tickborne illness, electrolyte derangements, dehydration In summary, this is a 70 year old male who presented with generalized weakness. Differential as above. Nursing notes and pertinent past medical records reviewed. Vital signs reviewed and the patient is febrile and hypoxic but otherwise HDS. LFNC applied with improvement in oxygenation. He appears in no acute respiratory distress. History and presentation revealed recent emergency department visit overnight where he was found to have pneumonia. Patient was started on antibiotics as an outpatient but he has been too weak to pick these up from the pharmacy. Patient now requiring 3+ person assist for movement. He is unable to ambulate. is concerned for possible tickborne illnesses. 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 Physical examination revealed ill appearing but no focal deficits on exam. He has no evidence of meningitis on exam. As a result of my initial evaluation, we will plan for labs and fluid resuscitation. Will start antibiotics for coverage of pneumonia. Plan to repeat chest x-ray as well. Given immunosuppression, patient does have risk factors for opportunistic infections; therefore, we will obtain blood cultures and tickborne illness panel as well. Diagnostics interpreted by me include EKG and cardiac monitoring as listed below: -Cardiac Monitoring: An order was placed for continuous cardiac monitoring. The monitor shows a rate of 70-90s with regular rhythm. -ECG: EKG independently terming by me reveals normal sinus rhythm at a ventricular rate of [address] segment changes to suggest STEMI. Intervals are within normal limits. Patient completed laboratory studies and imaging. Results independently interpreted by me are No leukocytosis or anemia. Patient does have worsening thrombocytopenia. Mild hyponatremia that is likely pseudohyponatremia in setting hyperglycemia. Mild hypokalemia present. Patient does have inflammatory markers that are elevated including a CRP of 9.36 and a procalcitonin of 2.62. Total bilirubin was minimally elevated. Urinalysis revealed mild ketonuria which I believe is likely starvation ketosis. Patient does have positive nitrite and esterase within the urine as well as pyuria. No bacteria but could represent his source of infection. RVP is negative. CXR independently interpreted by me reveals no evidence of focal consolidation to suggest pna. No large pneumothorax or pleural effusion. Unclear source of the patient's infection with tickborne illness panel pending. Will obtain repeat CT chest and CT abdomen/pelvis for further evaluation of source of infection. I independently reviewed patient's CAT scans that revealed no acute abnormalities. There is no evidence of pneumonia at this time. Will continue him on broad- spectrum. I reached out to the [facility] hospitalist group and we discussed the patient. They are agreeable to admit the patient for further workup. Consults/Care Managements Discussions: Per MDM ER treatment provided: See above Procedures:none Critical Care: None The chart was completed utilizing [employer] voice recognition software. Grammatical errors, random word insertions, pronoun errors, and incomplete sentences are an occasional consequence of this system due to software limitations, ambient noise, and hardware issues. Any formal questions or concerns about the content, text, or information contained within the body of this dictation should be directly addressed to the physician for clarification. Past Med/Surg History Problem List (Updated 05/20/25 @ 08:54 by Wander Tao DO) Thrombocytopenia (Acute) Sepsis (Acute) Immunocompromised patient Elevated procalcitonin Subjective fever (Acute) Myalgia (Acute) Pneumonia (Acute) BPH (benign prostatic hyperplasia) Diabetes BPH without obstruction/lower urinary tract symptoms (Acute) Incomplete emptying of bladder (Acute) Neoplasm of bladder (Acute) Hematuria SIRS (systemic inflammatory response syndrome) UTI (urinary tract infection) Medical History Arthritis Hypertension Surgical History Hx of tonsillectomy Hx of repair of rotator cuff Family History Mother Diabetes Father Leukemia Grandfather (Paternal) Prostate cancer Social History Smoking Status: Never smoker Hx Alcohol Use: No Hx Substance Use: No 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 Required: No Beliefs That Will Affect Care: None marital status: Current Living Situation: Spouse Current Living Situation Comment: single level house Feels Safe at Home: Yes Safety Concerns: Feels Safe At This Time Assistive Devices: None Allergies Allergies Allergy/AdvReac Type Severity Reaction Status Date / Time Bactrim Allergy Mild RASH, ITCH Verified 10/13/17 19:11 sulfamethoxazole Allergy Mild RASH, ITCH Verified 05/19/25 11:10 trimethoprim Allergy Mild RASH, ITCH Verified 05/19/25 11:10 Penicillins Allergy Unknown RASH Verified 05/19/25 11:10 Home Meds Home Medications Medication Instructions Recorded Confirmed adalimumab 40 mg/0.8 mL 40 mg subcut Q14D 02/22/20 05/19/25 subcutaneous syringe kit (Humira) metformin 1,000 mg tablet 1,000 mg PO BID 02/22/20 05/19/25 spironolactone 25 1 tab PO DAILY 02/22/20 05/19/25 mg-hydrochlorothiazide 25 mg tablet B-complex with vitamin C 1 tab PO DAILY 05/19/25 05/19/25 acidophilus 100 million 1 tab PO DAILY 05/19/25 05/19/25 cell-pectin, citrus 10 mg capsule azithromycin 250 mg tablet 0 mg PO DAILY 05/19/25 05/19/25 cefdinir 300 mg capsule 0 mg PO BID 05/19/25 05/19/25 cholecalciferol (vitamin D3) 25 25 mcg PO DAILY 05/19/25 05/19/25 mcg (1,000 unit) tablet empagliflozin 25 mg tablet 25 mg PO DAILY 05/19/25 05/19/25 (Jardiance) losartan 100 mg tablet 100 mg PO DAILY 05/19/25 05/19/25 multivitamin with minerals-folic 1 cap PO DAILY 05/19/25 05/19/25 133.3 mcg-biotin 1,666.7 mcg capsule (Hair,Skin and Nails (folic acid-biotin)) tirzepatide 5 mg/0.5 mL 5 mg subcut WK 05/19/25 05/19/25 subcutaneous pen injector (Arleen) zinc gluconate 50 mg tablet 50 mg PO DAILY 05/19/25 05/19/25 Previous Rx's Medication Instructions Recorded dutasteride 0.5 mg capsule 0.5 mg PO DAILY #90 caps 04/18/25 Results & Data (ED) Vital Signs Vital Signs - 24 hr 05/19/25 10:49 05/19/25 11:09 05/19/25 11:18 Temperature 38.4 C H Temperature Source Oral Pulse Rate 83 80 Pulse Rate from SpO2 Sensor 90 89 Respiratory Rate 16 22 15 Respiratory Effort / Characteristics Non-Labored Spontaneous Respiratory Depth Normal Blood Pressure 123/56 L 156/72 H 157/71 H Blood Pressure Mean 78 100 99 Pulse Oximetry 93 91 92 Oxygen Delivery Method Nasal Cannula Nasal Cannula Nasal Cannula Oxygen Flow Rate 2 2 2 Sepsis Recent Fever Within 48 Hours Yes Sepsis New/Unexplained Change in Mental Status No Sepsis Action Taken by Nursing No Action Required 05/19/25 11:36 05/19/25 11:36 05/19/25 11:57 Temperature 37.3 C Temperature Source Oral Pulse Rate 87 84 Pulse Rate from SpO2 Sensor 87 84 Respiratory Rate 20 25 H Respiratory Effort / Characteristics Respiratory Depth Blood Pressure 167/76 H 165/84 H Blood Pressure Mean 106 111 Pulse Oximetry 92 93 Oxygen Delivery Method Nasal Cannula Nasal Cannula Oxygen Flow Rate 2 2 Sepsis Recent Fever Within 48 Hours Sepsis New/Unexplained Change in Mental Status Sepsis Action Taken by Nursing 05/19/25 12:00 05/19/25 12:09 05/19/25 12:36 Temperature Temperature Source Pulse Rate 86 86 93 H Pulse Rate from SpO2 Sensor 87 94 H Respiratory Rate 26 H 28 H Respiratory Effort / Characteristics Respiratory Depth Blood Pressure 159/74 H 135/62 Blood Pressure Mean 102 86 Pulse Oximetry 93 93 Oxygen Delivery Method Nasal Cannula Nasal Cannula Oxygen Flow Rate 2 2 Sepsis Recent Fever Within 48 Hours Sepsis New/Unexplained Change in Mental Status Sepsis Action Taken by Nursing 05/19/25 12:54 05/19/25 13:00 05/19/25 13:03 Temperature 36.5 C Temperature Source Oral Pulse Rate 94 H 97 H Pulse Rate from SpO2 Sensor 94 H 96 H Respiratory Rate 30 H 37 H Respiratory Effort / Characteristics Respiratory Depth Blood Pressure 137/60 121/64 Blood Pressure Mean 85 83 Pulse Oximetry 93 94 Oxygen Delivery Method Nasal Cannula Nasal Cannula Oxygen Flow Rate 2 2 Sepsis Recent Fever Within 48 Hours Sepsis New/Unexplained Change in Mental Status Sepsis Action Taken by Nursing 05/19/25 13:21 05/19/25 13:42 05/19/25 13:48 Temperature Temperature Source Pulse Rate 95 H 92 H 95 H Pulse Rate from SpO2 Sensor 95 H 92 H 94 H Respiratory Rate 32 H 26 H 22 Respiratory Effort / Characteristics Respiratory Depth Blood Pressure 121/63 115/63 115/63 Blood Pressure Mean 82 80 80 Pulse Oximetry 92 92 92 Oxygen Delivery Method Nasal Cannula Nasal Cannula Nasal Cannula Oxygen Flow Rate 2 2 2 Sepsis Recent Fever Within 48 Hours Sepsis New/Unexplained Change in Mental Status Sepsis Action Taken by Nursing 05/19/25 14:00 05/19/25 14:36 05/19/25 15:00 Temperature Temperature Source Pulse Rate 85 83 79 Pulse Rate from SpO2 Sensor 87 84 80 Respiratory Rate 24 29 H 29 H Respiratory Effort / Characteristics Respiratory Depth Blood Pressure 119/62 116/65 122/64 Blood Pressure Mean 84 82 83 Pulse Oximetry 92 93 93 Oxygen Delivery Method Nasal Cannula Nasal Cannula Oxygen Flow Rate 2 2 Sepsis Recent Fever Within 48 Hours Sepsis New/Unexplained Change in Mental Status Sepsis Action Taken by Nursing Laboratory Data 05/20/25 07:21 05/20/25 07:21 Lab Results 05/19/25 05/19/25 05/19/25 Range/Units 10:52 11:46 12:07 WBC 6.48 (4.8-10.8) K/ul RBC 5.22 (4.70-6.10) M/uL Hgb 16.0 (14.0-18.0) g/dl Hct 46.2 (42.0-52.0) % MCV 88.5 (80.0-100.0) fL MCH 30.7 (25.0-34.0) pg MCHC 34.6 (32.0-36.0) g/dL RDW Std Deviation 43.0 (36.4-46.3) fL RDW Coeff of Bao 13.2 (11.5-14.5) % Plt Count 110 L (130-400) K/uL MPV 9.6 (9.4-12.4) fL Immature Gran % (Auto) 0.6 % Neut % (Auto) 91.8 % Lymph % (Auto) 4.8 % Beaver % (Auto) 2.5 % Eos % (Auto) 0.0 % Baso % (Auto) 0.3 % Neut # (Auto) 5.95 (1.40-6.50) K/uL Lymph # (Auto) 0.31 L (1.20-3.40) K/uL Beaver # (Auto) 0.16 (0.11-0.59) K/uL Eos # (Auto) 0.00 (0.00-0.50) K/uL Baso # (Auto) 0.02 (0.00-0.20) K/uL Immature Gran # (Auto) 0.04 (0.01-0.20) K/uL Toxic Vacuolation 1+ VBG pH 7.42 H (7.36-7.41) VBG pCO2 34 L (38-50) mmHg VBG pO2 52 mmHg VBG HCO3 22 mmol/L VBG O2 Saturation 84.8 % VBG Base Excess -1.6 mEq/L Sodium 131 L (136-145) mmol/L Potassium 3.4 L (3.5-5.1) mmol/L Chloride 99 (98-107) mmol/L Carbon Dioxide 20 L (21-32) mmol/L Anion Gap 12 H (3-11) BUN 16 (6-23) mg/dl Creatinine 0.69 (0.6-1.4) mg/dl Est Cr Clr Drug Dosing 135.7 ml/min eGFR 100.18 BUN/Creatinine Ratio 23.2 H (10-20) Glucose 170 H (70-99(Fasting)) mg/dl Lactate 2.6 H* (0.4-2.0) mmol/L Calcium 8.7 (8.6-10.3) mg/dl Total Bilirubin 1.6 H (0.2-1.0) mg/dl AST 40 H (13-39) U/L ALT 41 (7-52) U/L Alkaline Phosphatase 58 (34-104) U/L Total Creatine Kinase 86 (30-223) U/L C-Reactive Protein 9.36 H (0-0.5) mg/dl Total Protein 7.6 (6.0-8.3) gm/dl Albumin 3.7 (3.4-5.0) gm/dl Globulin 3.9 (2.5-4.0) gm/dl Albumin/Globulin Ratio 0.9 (0.9-2) Procalcitonin 2.62 H (0-0.5) ng/ml Adenovirus (PCR) (NotDetected) Anaplasma Smear Babesia Smear B. pertussis DNA (PCR) (NotDetected) B.parapertussis DNA PCR (NotDetected) Lyme Disease Screen Negative (Negative) C. pneumoniae DNA (PCR) (NotDetected) Coronavirus OC43 (PCR) (NotDetected) Coronavirus HKU1 (PCR) (NotDetected) Coronavirus 229E (PCR) (NotDetected) SARS-CoV-2 (PCR) (NotDetected) Coronavirus NL63 (PCR) (NotDetected) Human Metapneumovir PCR (NotDetected) Influenza Type A (PCR) (NotDetected) Influenza Type B (PCR) (NotDetected) M. pneumoniae (PCR) (NotDetected) Parainfluenza 1 (PCR) (NotDetected) Parainfluenza 2 (PCR) (NotDetected) Parainfluenza 3 (PCR) (NotDetected) Parainfluenza 4 (PCR) (NotDetected) RSV (PCR) (NotDetected) Entero/Rhino (PCR) (NotDetected) 05/19/25 05/19/25 Range/Units 13:47 15:40 WBC (4.8-10.8) K/ul RBC (4.70-6.10) M/uL Hgb (14.0-18.0) g/dl Hct (42.0-52.0) % MCV (80.0-100.0) fL MCH (25.0-34.0) pg MCHC (32.0-36.0) g/dL RDW Std Deviation (36.4-46.3) fL RDW Coeff of Bao (11.5-14.5) % Plt Count (130-400) K/uL MPV (9.4-12.4) fL Immature Gran % (Auto) % Neut % (Auto) % Lymph % (Auto) % Beaver % (Auto) % Eos % (Auto) % Baso % (Auto) % Neut # (Auto) (1.40-6.50) K/uL Lymph # (Auto) (1.20-3.40) K/uL Beaver # (Auto) (0.11-0.59) K/uL Eos # (Auto) (0.00-0.50) K/uL Baso # (Auto) (0.00-0.20) K/uL Immature Gran # (Auto) (0.01-0.20) K/uL Toxic Vacuolation VBG pH (7.36-7.41) VBG pCO2 (38-50) mmHg VBG pO2 mmHg VBG HCO3 mmol/L VBG O2 Saturation % VBG Base Excess mEq/L Sodium (136-145) mmol/L Potassium (3.5-5.1) mmol/L Chloride (98-107) mmol/L Carbon Dioxide (21-32) mmol/L Anion Gap (3-11) BUN (6-23) mg/dl Creatinine (0.6-1.4) mg/dl Est Cr Clr Drug Dosing ml/min eGFR BUN/Creatinine Ratio (10-20) Glucose (70-99(Fasting)) mg/dl Lactate 1.4 (0.4-2.0) mmol/L Calcium (8.6-10.3) mg/dl Total Bilirubin (0.2-1.0) mg/dl AST (13-39) U/L ALT (7-52) U/L Alkaline Phosphatase (34-104) U/L Total Creatine Kinase (30-223) U/L C-Reactive Protein (0-0.5) mg/dl Total Protein (6.0-8.3) gm/dl Albumin (3.4-5.0) gm/dl Globulin (2.5-4.0) gm/dl Albumin/Globulin Ratio (0.9-2) Procalcitonin (0-0.5) ng/ml Adenovirus (PCR) Not Detected (NotDetected) Anaplasma Smear See Comment Babesia Smear See Comment B. pertussis DNA (PCR) Not Detected (NotDetected) B.parapertussis DNA PCR Not Detected (NotDetected) Lyme Disease Screen (Negative) C. pneumoniae DNA (PCR) Not Detected (NotDetected) Coronavirus OC43 (PCR) Not Detected (NotDetected) Coronavirus HKU1 (PCR) Not Detected (NotDetected) Coronavirus 229E (PCR) Not Detected (NotDetected) SARS-CoV-2 (PCR) Not Detected (NotDetected) Coronavirus NL63 (PCR) Not Detected (NotDetected) Human Metapneumovir PCR Not Detected (NotDetected) Influenza Type A (PCR) Not Detected (NotDetected) Influenza Type B (PCR) Not Detected (NotDetected) M. pneumoniae (PCR) Not Detected (NotDetected) Parainfluenza 1 (PCR) Not Detected (NotDetected) Parainfluenza 2 (PCR) Not Detected (NotDetected) Parainfluenza 3 (PCR) Not Detected (NotDetected) Parainfluenza 4 (PCR) Not Detected (NotDetected) RSV (PCR) Not Detected (NotDetected) Entero/Rhino (PCR) Not Detected (NotDetected) Administered Medications Piperacillin Sod/Tazobactam Sod (Zosyn) 4.5 gm in 100 mls @ 25 mls/hr IV Q8H [facility], [facility]; Protocol Stop: 05/22/25 01:59 Last Infusion: 05/20/25 06:17 Dose: Infused Documented By: Admin: 05/20/25 01:44 Dose: 25 mls/hr Documented By: NANI Vancomycin HCl 1,500 mg/ (Sodium Chloride) 530 mls @ 200 mls/hr IV Q12H [facility] Stop: 05/22/25 05:59 Last Admin: 05/20/25 06:17 Dose: 200 mls/hr Documented By: NANI Potassium Chloride/Dextrose/Sod Cl (D5w And 1/2nss + 20meq Kcl) 20 meq in 1,000 mls @ 100 mls/hr IV .Q10H [facility] Stop: 05/20/25 14:29 Last Admin: 05/19/25 19:50 Dose: 100 mls/hr Documented By: NANI Insulin Aspart (Insulin Aspart Per Unit Charge) 0 units SC ACHS [facility] Stop: 06/18/25 18:03 Last Admin: 05/20/25 07:57 Dose: 6 units Documented By: RODERICK Co-signed By: VIJI Admin: 05/19/25 23:08 Dose: 2 units Documented By: NANI Co-signed By: KAREN Admin: 05/19/25 18:45 Dose: 4 units Documented By: RODERICK Co-signed By: NANI Discontinued Medications Ceftriaxone Sodium (Rocephin) 1,000 mg in 50 mls @ 100 mls/hr IV NOW ONE; Protocol Stop: 05/19/25 11:50 Last Infusion: 05/19/25 12:41 Dose: Infused Documented By: Admin: 05/19/25 12:10 Dose: 100 mls/hr Documented By: ARIANNAD Azithromycin (Zithromax) 500 mg in 255 mls @ 127.5 mls/hr IV NOW ONE Stop: 05/19/25 13:20 Last Infusion: 05/19/25 15:12 Dose: Infused Documented By: Admin: 05/19/25 12:59 Dose: 127.5 mls/hr Documented By: ARIANNAD Parenteral Electrolytes (Plasma-Lyte A Ph 7.4) 1,000 mls @ 999 mls/hr IV .Q1H1M ONE Stop: 05/19/25 12:21 Last Infusion: 05/19/25 12:59 Dose: Infused Documented By: Admin: 05/19/25 11:44 Dose: 999 mls/hr Documented By: ARIANNAD Piperacillin Sod/Tazobactam Sod (Zosyn) 4.5 gm in 100 mls @ 200 mls/hr IV 1830 [facility]; Protocol Stop: 05/19/25 18:59 Last Infusion: 05/19/25 20:52 Dose: Infused Documented By: Admin: 05/19/25 19:51 Dose: 200 mls/hr Documented By: KRT Vancomycin HCl 2,750 mg/ (Sodium Chloride) 555 mls @ 180 mls/hr IV 1830 ONE Stop: 05/19/25 21:34 Last Infusion: 05/20/25 01:13 Dose: Infused Documented By: Admin: 05/19/25 20:52 Dose: 180 mls/hr Documented By: KRT Ioversol (Optiray 320 100ml) 94 ml IV ONCE ONE Stop: 05/19/25 12:47 Last Admin: 05/19/25 12:46 Dose: 94 ml Documented By: EDK Imaging Data Radiologist's Impression: Chest X-Ray 05/19/25 11:21 EXAM: Radiograph of the Chest 1 View INDICATION: TECHNIQUE: Frontal view of the chest. Image obtained at 11:31 AM. COMPARISON: 12:37 AM the same day FINDINGS: Lungs and pleural spaces: Improved basilar ventilation. No consolidation or pulmonary edema. No pleural effusion or pneumothorax. Heart: Stable large cardiac shadow. Mediastinum: Normal contour. Bones/joints: Degenerative changes noted throughout the spine and both shoulders. No lytic or blastic lesions noted. Soft tissues: No abnormality noted. No radiopaque foreign body noted. Upper abdomen: No abnormality noted. IMPRESSION: No acute cardiopulmonary disease. ACT 112: N/A Electronically signed by Dee Dee Vallejo 05-19-2025 11:58 AM Abdomen/Pelvis CT 05/19/25 12:12 EXAM: CT Chest Abdomen and Pelvis With Intravenous Contrast INDICATION: Sepsis. TECHNIQUE: Axial computed tomography images of the chest, abdomen and pelvis with intravenous contrast. Sagittal and coronal reformatted images were created and reviewed. This CT exam was performed using one or more of the following dose reduction techniques: automated exposure control, adjustment of the mA and/or kV according to patient size, and/or use of iterative reconstruction technique. CONTRAST: 94ml of Optiray 320 was administered intravenously. COMPARISON: No relevant prior studies available. FINDINGS: Limitations: None. CHEST: Lungs and pleural spaces: There is mild nodularity along the right fissures. No further assessment required. There is coarse streaky scarring or atelectasis in the dependent lower lobes and in the lingula. No pleural effusion or pneumothorax. No bronchiectasis, honeycombing or reticulation. No mass. Heart: Mild enlarged heart. No pericardial effusion. Calcification of the aortic valve and coronary arteries noted. Mediastinum: Small sliding hiatal hernia. Thyroid: No abnormality noted. ABDOMEN: Liver: Normal size and contour. Hypodense typical of steatosis. No mass or ductal dilation. Gallbladder and bile ducts: No calcified stones or surrounding fluid. No ductal dilation. Pancreas: Homogeneous enhancement. No mass, inflammation or ductal dilation. Spleen: No significant abnormality noted. Adrenals: No significant abnormality noted. Kidneys and ureters: Normal enhancement. No mass, hydronephrosis or visualized stone. Stomach and bowel: Colonic diverticulosis without diverticulitis. No intestinal thickening or obstruction. PELVIS: Appendix: No findings to suggest acute appendicitis. Bladder: No filling defects to suggest mass or large stone. No inflammation. Reproductive: No significant abnormality noted. CHEST, ABDOMEN and PELVIS: Intraperitoneal space: No free air. No significant fluid collection. Retroperitoneal space: No abnormality noted. No fluid collection. Bones/joints: Degenerative changes noted in the scoliotic spine. No acute osseous abnormality noted. Soft tissues: No significant abnormality noted. Vasculature: Atherosclerotic calcification of the aorta and branches. No aneurysm. Lymph nodes: No enlarged lymph nodes. IMPRESSION: 1. Streaky linear scarring or atelectasis in the lungs. 2. No acute abnormality in the abdomen or pelvis. 3. Hepatic steatosis. ACT 112: N/A Electronically signed by Dee Dee Vallejo 05-19-2025 13:[address] 05/19/25 12:12 EXAM: CT Chest Abdomen and Pelvis With Intravenous Contrast INDICATION: Sepsis. TECHNIQUE: Axial computed tomography images of the chest, abdomen and pelvis with intravenous contrast. Sagittal and coronal reformatted images were created and reviewed. This CT exam was performed using one or more of the following dose reduction techniques: automated exposure control, adjustment of the mA and/or kV according to patient size, and/or use of iterative reconstruction technique. CONTRAST: 94ml of Optiray 320 was administered intravenously. COMPARISON: No relevant prior studies available. FINDINGS: Limitations: None. CHEST: Lungs and pleural spaces: There is mild nodularity along the right fissures. No further assessment required. There is coarse streaky scarring or atelectasis in the dependent lower lobes and in the lingula. No pleural effusion or pneumothorax. No bronchiectasis, honeycombing or reticulation. No mass. Heart: Mild enlarged heart. No pericardial effusion. Calcification of the aortic valve and coronary arteries noted. Mediastinum: Small sliding hiatal hernia. Thyroid: No abnormality noted. ABDOMEN: Liver: Normal size and contour. Hypodense typical of steatosis. No mass or ductal dilation. Gallbladder and bile ducts: No calcified stones or surrounding fluid. No ductal dilation. Pancreas: Homogeneous enhancement. No mass, inflammation or ductal dilation. Spleen: No significant abnormality noted. Adrenals: No significant abnormality noted. Kidneys and ureters: Normal enhancement. No mass, hydronephrosis or visualized stone. Stomach and bowel: Colonic diverticulosis without diverticulitis. No intestinal thickening or obstruction. PELVIS: Appendix: No findings to suggest acute appendicitis. Bladder: No filling defects to suggest mass or large stone. No inflammation. Reproductive: No significant abnormality noted. CHEST, ABDOMEN and PELVIS: Intraperitoneal space: No free air. No significant fluid collection. Retroperitoneal space: No abnormality noted. No fluid collection. Bones/joints: Degenerative changes noted in the scoliotic spine. No acute osseous abnormality noted. Soft tissues: No significant abnormality noted. Vasculature: Atherosclerotic calcification of the aorta and branches. No aneurysm. Lymph nodes: No enlarged lymph nodes. IMPRESSION: 1. Streaky linear scarring or atelectasis in the lungs. 2. No acute abnormality in the abdomen or pelvis. 3. Hepatic steatosis. ACT 112: N/A Electronically signed by Dee Dee Vallejo 05-19-2025 13:[address] 05/19/25 15:32 CT head without contrast History: Weakness Comparison: None Technique: Using multidetector thin collimation helical acquisition technique, axial, coronal and sagittal CT images from the skull base to the vertex were obtained without intravenous contrast. Dose reduction techniques were achieved by using automatic exposure control and/or adjustment of mA and/or kV according to patient size and/or use of iterative reconstruction technique. Findings: No intracranial hemorrhage, mass-effect, or midline shift. The ventricles are proportionate to the cerebral sulci. The douglass to white matter differentiation of the cerebral hemispheres is preserved. The basal cisterns are patent. The visualized paranasal sinuses are clear. Mastoid air cells are clear. Impression: No acute intracranial pathology. Electronically signed by Myke De León 05-19-2025 5:10 PM Discharge Plan Visit Data Chief Complaint: Illness Stated Complaint: fever ED Provider: Wander Tao Discharge Problem: Sepsis, Thrombocytopenia Patient Disposition: Admitted As Inpatient Condition: Serious Discharge Instructions Interventions: ED Discharge Assessment Last Done: 05/19/25 17:57
[2025-05-19] MEDS: PLASMA-LYTE A 1,000 ML IV ONE (11:44)
[2025-05-19 11:53] LABS: Hematocrit (blood only) 46.2 % (42.0-52.0); Hemoglobin 16.0 g/dl (14.0-18.0); Mean Corpuscular Hemoglobin 30.7 pg (25.0-34.0); Mean Corpuscular Volume 88.5 fL (80.0-100.0); Platelet Count 110 K/uL (130-400); RDW Standard Deviation 43.0 fL (36.4-46.3); Red Blood Count 5.22 M/uL (4.70-6.10); White Blood Count 6.48 K/ul (4.8-10.8)
[2025-05-19 11:59] LABS: Alanine Aminotransferase 41.0 U/L (7-52); Albumin Globulin Ratio 0.9 (0.9-2); Alkaline Phosphatase 58.0 U/L (34-104); Anion Gap 12.0 (3-11); Bilirubin,Total 1.6 mg/dl (0.2-1.0); Blood Urea Nitrogen 16.0 mg/dl (6-23); Calcium 8.7 mg/dl (8.6-10.3); Carbon Dioxide 20.0 mmol/L (21-32); Chloride 99.0 mmol/L (98-107); Creatinine Clr Calc Pharmacy 135.7 ml/min; Globulin 3.9 gm/dl (2.5-4.0); Glucose 170.0 mg/dl (70-99(Fasting)); Potassium 3.4 mmol/L (3.5-5.1); Sodium 131.0 mmol/L (136-145); Total Protein 7.6 gm/dl (6.0-8.3)
--- NOTE | 2025-05-19 11:59 | XRay Report ---
EXAM: Radiograph of the Chest 1 View INDICATION: TECHNIQUE: Frontal view of the chest. Image obtained at 11:31 AM. COMPARISON: 12:37 AM the same day FINDINGS: Lungs and pleural spaces: Improved basilar ventilation. No consolidation or pulmonary edema. No pleural effusion or pneumothorax. Heart: Stable large cardiac shadow. Mediastinum: Normal contour. Bones/joints: Degenerative changes noted throughout the spine and both shoulders. No lytic or blastic lesions noted. Soft tissues: No abnormality noted. No radiopaque foreign body noted. Upper abdomen: No abnormality noted. IMPRESSION: No acute cardiopulmonary disease. ACT 112: N/A Electronically signed by Dee Dee Vallejo 05-19-2025 11:58 AM
[2025-05-19] MEDS: cefTRIAXone SODIUM 1,000 MG/50 ML BAG IV ONE (12:10)
[2025-05-19 12:14] LABS: Immature Granulocytes # (auto) 0.04 K/uL (0.01-0.20); Immature Granulocytes % (auto) 0.6 %; Toxic Vacuolation 1+
[2025-05-19 12:18] LABS: Base Excess VBG -1.6 mEq/L; HCO3 VBG 22 mmol/L; Oxygen Saturation VBG 84.8 %; PCO2 VBG 34 mmHg (38-50); PO2 VBG 52 mmHg; pH VBG 7.42 (7.36-7.41)
[2025-05-19] MEDS: OPTIRAY 320 100ml IV ONE (12:46)
[2025-05-19] MEDS: AZITHROMYCIN 500 MG/255 ML BAG IV ONE (12:59)
--- NOTE | 2025-05-19 13:18 | CT Scan Report ---
EXAM: CT Chest Abdomen and Pelvis With Intravenous Contrast INDICATION: Sepsis. TECHNIQUE: Axial computed tomography images of the chest, abdomen and pelvis with intravenous contrast. Sagittal and coronal reformatted images were created and reviewed. This CT exam was performed using one or more of the following dose reduction techniques: automated exposure control, adjustment of the mA and/or kV according to patient size, and/or use of iterative reconstruction technique. CONTRAST: 94ml of Optiray 320 was administered intravenously. COMPARISON: No relevant prior studies available. FINDINGS: Limitations: None. CHEST: Lungs and pleural spaces: There is mild nodularity along the right fissures. No further assessment required. There is coarse streaky scarring or atelectasis in the dependent lower lobes and in the lingula. No pleural effusion or pneumothorax. No bronchiectasis, honeycombing or reticulation. No mass. Heart: Mild enlarged heart. No pericardial effusion. Calcification of the aortic valve and coronary arteries noted. Mediastinum: Small sliding hiatal hernia. Thyroid: No abnormality noted. ABDOMEN: Liver: Normal size and contour. Hypodense typical of steatosis. No mass or ductal dilation. Gallbladder and bile ducts: No calcified stones or surrounding fluid. No ductal dilation. Pancreas: Homogeneous enhancement. No mass, inflammation or ductal dilation. Spleen: No significant abnormality noted. Adrenals: No significant abnormality noted. Kidneys and ureters: Normal enhancement. No mass, hydronephrosis or visualized stone. Stomach and bowel: Colonic diverticulosis without diverticulitis. No intestinal thickening or obstruction. PELVIS: Appendix: No findings to suggest acute appendicitis. Bladder: No filling defects to suggest mass or large stone. No inflammation. Reproductive: No significant abnormality noted. CHEST, ABDOMEN and PELVIS: Intraperitoneal space: No free air. No significant fluid collection. Retroperitoneal space: No abnormality noted. No fluid collection. Bones/joints: Degenerative changes noted in the scoliotic spine. No acute osseous abnormality noted. Soft tissues: No significant abnormality noted. Vasculature: Atherosclerotic calcification of the aorta and branches. No aneurysm. Lymph nodes: No enlarged lymph nodes. IMPRESSION: 1. Streaky linear scarring or atelectasis in the lungs. 2. No acute abnormality in the abdomen or pelvis. 3. Hepatic steatosis. ACT 112: N/A Electronically signed by Dee Dee Vallejo 05-19-2025 13:17 PM
--- NOTE | 2025-05-19 15:42 | History & Physical Report ---
Date of Service May 19, 2025 Assessment & Plan (1) Sepsis: (2) Immunocompromised patient: (3) SIRS (systemic inflammatory response syndrome): (4) Elevated procalcitonin: (5) Myalgia: (6) Pneumonia: (7) BPH without obstruction/lower urinary tract symptoms: Admission and Anticipated Discharge Date Admission Date: #Sepsis - tachycardic, elevated procal 2.62 with elevated lactic 2.6 (improved 1.4 s/p 1L IVF). CT chest w/ atelectasis, no consolidative pna. ?pulm congestion. 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 Unclear source but on exam appeared very ill/drenched in sweat, been feeling ill since this past /off balance and fell. Is immunocompromised on adalimumab Admit to PCU Check biofire Empiric Zosyn/Vancomycin given immunocompromised status for now Follow blood cultures Concerns w/ headache/weakness/fall/fever for possible meningitis however denied pain w/ flexion neck/bending knees -- will obtain CT head DVT proph to be ordered pending CT head, possible need for LP pending findings -- supervising provider to discuss w/ ER provider to perform following CT head Peripheral smear neg for inclusion bodies, no Bullseye rash but Babesia/anaplasmosis PCR pending and will need follow up. Does have low plt/elevated TB/AST Isolation precautions ordered for now, will obtain full biofire given prior RSV/COVID/Flu negative IVF w/ D5 1/2NS + 20meq given elevated anion gap w/ hx DM Follow up repeat labs #RUE IV infiltration/erythema - concerns for infection/cellulitis vs clot. check Doppler to r/o clot, checking CT head as above given fall/weakness, concerns for meningitis. Should be covered w/ abx above. Elevate and monitor in follow up #Hypoxia - tx for presumed pna prior should be covered w/ above. Not on O2 last evening. did report was difficult to attempt to get off. pH 7.4 w/ pCO2 34, HCO3 wnl. Incentive spirometry ordered, continues abx as outlined. Checking RUE doppler and could entertain CTA for PE as well, can add ddimmer to labs, entertain CTA as does report hx DVT in past. CT head as above and continue supplemental O2 as needed. Check biofire #DM II- last A1c in system 2017 ~8.3, repeat w/ AM labs. HOLD home Jardiance, mounjaro, metformin. Glu 170 on arrival, elevated anion gap to 13 w/ low CO2. Blood gas elevated pH/low Co2. IVF w/ D5 for dehydration on exam, tx above BSG AC/HS Will defer glargine BID for now and utilize SSI and can add pending serial measurements/A1c in AM #HTN - BP stable at present 116/65 Given elevated lactic/sepsis above and BP stable on admission along w/ teresita ctrolyte derangements w/ hypokalemia and poor PO intake on admission will HOLD home HCTZ/spironolactone. CTAP neg for acute process given fall. Can continue losartan once daily for now, monitor to hold if needed #BPH - hx TURP, prior UA overnight without evidence for infection. Monitor for any issues #Hyponatremia -- appears acute on chronic in nature. Is on HCTZ/spironolactone at baseline, denies hx CHF. TSH checked and wnl. Monitor w/ hydration and treatment above, consider serum/urine studies pending course Will check cortisol AM for completeness, BMP in AM DVT proph: SCDs have been ordered, defer chemoproph until CT head resulted/LP completed Dispo: admit telemetry, empiric abx/CT head +/- LP in ER. Case discussed with Dr Romero on admission. See attestation for further evaluation/recommendations. History of Present Illness Chief Complaint: weakness, fatigue, ambulatory dysfunction Primary Care Provider: Edgardo Frazier 70yo male presented for acute vague illness complaints last evening with body aches/cramping and ill feeling and provided 1L IVF and given azithromycin and discharged home. No new medication changes other than the antibiotics for pneumonia and reports was given azithromycin. Reports having had fevers at home but not taken his temperature, feeling ill, fatigued, muscle cramps/aches but no overt focal symptoms reported. in room reports patient had a fall yesterday, patient denies hitting head but fell onto his butt. She reports he has been "off" since , not acting his usual self. Reports headache but no vomiting along with poor PO intake. No meningeal signs or increased sx w/ bending neck or flexion of knees. He is on a biologic for psoriatic arthritis has been on for several months (6mo- 1yr per /patient), last dose 2 weeks ago and due this week. Reports history of diabetes - is on metformin, mounjaro, haileyance at baseline. Denies history of heart failure but is on losartan 100mg, spironolactone 25mg, HCTZ 25mg for HTN. No urinary symptoms reported. Denies overt abdominal pain but does have poor appetite. No recent ticks appreciated but has had in the past. Reports hx DVT but unclear if provoked or not but not on anticoagulation at baseline. Does have right arm wrapped in ALEX wrap from last evening -- reports has not been removed since placed in ER. Removed and has significant erythema/swelling along with slight lymphangitic streaking up his right upper extremity. Sensation intact, pulses present but appear slightly weak. Tobacco Stripper Hand strength intact bilaterally. Appears to have equal strength dorsiflexion/plantar flexion in bed but reporting was unable to support his upper body when EMS came to the house to assist in bringing him in. Discussed admission for empiric abx/further work up and therapy evaluations. Case discussed with Dr Renner and see attestation for further evaluation/recommendations. Full code Allergies Allergy/AdvReac Type Severity Reaction Status Date / Time Bactrim Allergy Mild RASH, ITCH Verified 10/13/17 19:11 sulfamethoxazole Allergy Mild RASH, ITCH Verified 05/19/25 11:10 trimethoprim Allergy Mild RASH, ITCH Verified 05/19/25 11:10 Penicillins Allergy Unknown RASH Verified 05/19/25 11:10 Home Medications Medication Instructions Recorded Confirmed Type adalimumab 40 mg/0.8 mL 40 mg subcut Q14D 02/22/20 05/19/25 History subcutaneous syringe kit (Humira) metformin 1,000 mg tablet 1,000 mg PO BID 02/22/20 05/19/25 History spironolactone 25 1 tab PO DAILY 02/22/20 05/19/25 History mg-hydrochlorothiazide 25 mg tablet dutasteride 0.5 mg capsule 0.5 mg PO DAILY #90 caps 04/18/25 05/19/25 Rx B-complex with vitamin C 1 tab PO DAILY 05/19/25 05/19/25 History acidophilus 100 million 1 tab PO DAILY 05/19/25 05/19/25 History cell-pectin, citrus 10 mg capsule azithromycin 250 mg tablet 0 mg PO DAILY 05/19/25 05/19/25 History cefdinir 300 mg capsule 0 mg PO BID 05/19/25 05/19/25 History cholecalciferol (vitamin D3) 25 25 mcg PO DAILY 05/19/25 05/19/25 History mcg (1,000 unit) tablet empagliflozin 25 mg tablet 25 mg PO DAILY 05/19/25 05/19/25 History (Jardiance) losartan 100 mg tablet 100 mg PO DAILY 05/19/25 05/19/25 History multivitamin with minerals-folic 1 cap PO DAILY 05/19/25 05/19/25 History 133.3 mcg-biotin 1,666.7 mcg capsule (Hair,Skin and Nails (folic acid-biotin)) tirzepatide 5 mg/0.5 mL 5 mg subcut WK 05/19/25 05/19/25 History subcutaneous pen injector (Mounjaro) zinc gluconate 50 mg tablet 50 mg PO DAILY 05/19/25 05/19/25 History Past Med/Surg History Problem List (Updated 05/19/25 @ 15:32 by Zahida Qureshi PA-C) Immunocompromised patient Elevated procalcitonin Subjective fever (Acute) Myalgia (Acute) Pneumonia (Acute) BPH (benign prostatic hyperplasia) Diabetes BPH without obstruction/lower urinary tract symptoms (Acute) Incomplete emptying of bladder (Acute) Neoplasm of bladder (Acute) Hematuria SIRS (systemic inflammatory response syndrome) UTI (urinary tract infection) Medical History Arthritis Hypertension Surgical History Hx of tonsillectomy Hx of repair of rotator cuff Family History Mother Diabetes Father Leukemia Grandfather (Paternal) Prostate cancer Social History Smoking Status: Never smoker Hx Alcohol Use: No Preferred Language: Guyanese marital status: Feels Safe at Home: Yes Review of Systems Review of Systems: All systems reviewed & are unremarkable except as noted in HPI & below Physical Exam Physical Exam: General: 70yo obese male laying in bed, ill appearing/diaphoretic, fatigued appearing, on 2L NC, in room Head atraumatic, normocephalic, thick neck, trachea midline, mm dry, no increased pain w/ flexion of neck but is red posteriorly Resp: diminished in the bases, bibasilar crackles, decreased respiratory effort, occ cough, on 2L NC, RR 22 CV: regular, no overt murmur/rub/gallop, trace pedal edema, pulses present, no calf tenderness GI: +BS, obese, slight distension but nontender no joseph MSK/Neuro: generalized weakness but sensation intact, no slurred speech/facial droop but fatigued/lethargic falling back asleep but answering questions appropriately and following commands as able, dorsiflexion/plantar flexion equal Psych: alert/oriented Skin: +edema/erythema RUE w/ lymphangitic streaking mid upper arm, pulses present but slightly weak Results & Data Results & Data Vital Signs (Past 12 Hours) Vital Signs Temp Pulse Resp BP Pulse Ox O2 Del Method O2 Flow Rate 05/19/25 14:36 83 29 H 116/65 93 Nasal Cannula 2 05/19/25 14:00 85 24 119/62 92 Nasal Cannula 2 05/19/25 13:48 95 H 22 115/63 92 Nasal Cannula 2 05/19/25 13:42 92 H 26 H 115/63 92 Nasal Cannula 2 05/19/25 13:21 95 H 32 H 121/63 92 Nasal Cannula 2 05/19/25 13:03 97 H 37 H 121/64 94 Nasal Cannula 2 05/19/25 13:00 36.5 C 05/19/25 12:54 94 H 30 H 137/60 93 Nasal Cannula 2 05/19/25 12:36 93 H 28 H 135/62 93 Nasal Cannula 2 05/19/25 12:09 86 26 H 159/74 H 93 Nasal Cannula 2 05/19/25 12:00 86 05/19/25 11:57 84 25 H 165/84 H 93 Nasal Cannula 2 05/19/25 11:36 37.3 C 05/19/25 11:36 87 20 167/76 H 92 Nasal Cannula 2 05/19/25 11:18 80 15 157/71 H 92 Nasal Cannula 2 05/19/25 11:09 22 156/72 H 91 Nasal Cannula 2 05/19/25 10:49 38.4 C H 83 16 123/56 L 93 Nasal Cannula 2 Laboratory Results 05/19/25 05/19/25 05/19/25 Range/Units 15:59 15:40 13:47 WBC (4.8-10.8) K/ul RBC (4.70-6.10) M/uL Hgb (14.0-18.0) g/dl Hct (42.0-52.0) % MCV (80.0-100.0) fL MCH (25.0-34.0) pg MCHC (32.0-36.0) g/dL RDW Std Deviation (36.4-46.3) fL RDW Coeff of Bao (11.5-14.5) % Plt Count (130-400) K/uL MPV (9.4-12.4) fL Immature Gran % (Auto) % Neut % (Auto) % Lymph % (Auto) % [place] % (Auto) % Eos % (Auto) % Baso % (Auto) % Neut # (Auto) (1.40-6.50) K/uL Lymph # (Auto) (1.20-3.40) K/uL [place] # (Auto) (0.11-0.59) K/uL Eos # (Auto) (0.00-0.50) K/uL Baso # (Auto) (0.00-0.20) K/uL Immature Gran # (Auto) (0.01-0.20) K/uL Toxic Vacuolation VBG pH (7.36-7.41) VBG pCO2 (38-50) mmHg VBG pO2 mmHg VBG HCO3 mmol/L VBG O2 Saturation % VBG Base Excess mEq/L Sodium (136-145) mmol/L Potassium (3.5-5.1) mmol/L Chloride (98-107) mmol/L Carbon Dioxide (21-32) mmol/L Anion Gap (3-11) BUN (6-23) mg/dl Creatinine (0.6-1.4) mg/dl Est Cr Clr Drug Dosing ml/min eGFR BUN/Creatinine Ratio (10-20) Glucose (70-99(Fasting)) mg/dl Lactate 1.4 (0.4-2.0) mmol/L Calcium (8.6-10.3) mg/dl Total Bilirubin (0.2-1.0) mg/dl AST (13-39) U/L ALT (7-52) U/L Alkaline Phosphatase (34-104) U/L Total Creatine Kinase (30-223) U/L C-Reactive Protein (0-0.5) mg/dl Total Protein (6.0-8.3) gm/dl Albumin (3.4-5.0) gm/dl Globulin (2.5-4.0) gm/dl Albumin/Globulin Ratio (0.9-2) Procalcitonin (0-0.5) ng/ml Urine Color Pending Urine Appearance Pending Urine pH Pending Ur Specific [place] Pending Urine Protein Pending Urine Glucose (UA) Pending Urine Ketones Pending Urine Blood Pending Urine Nitrite Pending Urine Bilirubin Pending Urine Urobilinogen Pending Ur Leukocyte Esterase Pending Urine Comment Adenovirus (PCR) Pending Anaplasma Smear See Comment A. phagocytophilum DNA Pending Babesia Smear See Comment Babesia microti DNA PCR Pending B. pertussis DNA (PCR) Pending B.parapertussis DNA PCR Pending Lyme Disease Screen (Negative) C. pneumoniae DNA (PCR) Pending Coronavirus OC43 (PCR) Pending Coronavirus HKU1 (PCR) Pending Coronavirus 229E (PCR) Pending SARS-CoV-2 (PCR) Pending Coronavirus NL63 (PCR) Pending Human Metapneumovir PCR Pending Influenza Type B (PCR) Pending M. pneumoniae (PCR) Pending Parainfluenza 1 (PCR) Pending Parainfluenza 2 (PCR) Pending Parainfluenza 3 (PCR) Pending Parainfluenza 4 (PCR) Pending RSV (PCR) Pending Entero/Rhino (PCR) Pending 05/19/25 05/19/25 05/19/25 Range/Units 12:07 11:46 10:52 WBC 6.48 (4.8-10.8) K/ul RBC 5.22 (4.70-6.10) M/uL Hgb 16.0 (14.0-18.0) g/dl Hct 46.2 (42.0-52.0) % MCV 88.5 (80.0-100.0) fL MCH 30.7 (25.0-34.0) pg MCHC 34.6 (32.0-36.0) g/dL RDW Std Deviation 43.0 (36.4-46.3) fL RDW Coeff of Bao 13.2 (11.5-14.5) % Plt Count 110 L (130-400) K/uL MPV 9.6 (9.4-12.4) fL Immature Gran % (Auto) 0.6 % Neut % (Auto) 91.8 % Lymph % (Auto) 4.8 % [place] % (Auto) 2.5 % Eos % (Auto) 0.0 % Baso % (Auto) 0.3 % Neut # (Auto) 5.95 (1.40-6.50) K/uL Lymph # (Auto) 0.31 L (1.20-3.40) K/uL [place] # (Auto) 0.16 (0.11-0.59) K/uL Eos # (Auto) 0.00 (0.00-0.50) K/uL Baso # (Auto) 0.02 (0.00-0.20) K/uL Immature Gran # (Auto) 0.04 (0.01-0.20) K/uL Toxic Vacuolation 1+ VBG pH 7.42 H (7.36-7.41) VBG pCO2 34 L (38-50) mmHg VBG pO2 52 mmHg VBG HCO3 22 mmol/L VBG O2 Saturation 84.8 % VBG Base Excess -1.6 mEq/L Sodium 131 L (136-145) mmol/L Potassium 3.4 L (3.5-5.1) mmol/L Chloride 99 (98-107) mmol/L Carbon Dioxide 20 L (21-32) mmol/L Anion Gap 12 H (3-11) BUN 16 (6-23) mg/dl Creatinine 0.69 (0.6-1.4) mg/dl Est Cr Clr Drug Dosing 135.7 ml/min eGFR 100.18 BUN/Creatinine Ratio 23.2 H (10-20) Glucose 170 H (70-99(Fasting)) mg/dl Lactate 2.6 H* (0.4-2.0) mmol/L Calcium 8.7 (8.6-10.3) mg/dl Total Bilirubin 1.6 H (0.2-1.0) mg/dl AST 40 H (13-39) U/L ALT 41 (7-52) U/L Alkaline Phosphatase 58 (34-104) U/L Total Creatine Kinase 86 (30-223) U/L C-Reactive Protein 9.36 H (0-0.5) mg/dl Total Protein 7.6 (6.0-8.3) gm/dl Albumin 3.7 (3.4-5.0) gm/dl Globulin 3.9 (2.5-4.0) gm/dl Albumin/Globulin Ratio 0.9 (0.9-2) Procalcitonin 2.62 H (0-0.5) ng/ml Urine Color Urine Appearance Urine pH Ur Specific [place] Urine Protein Urine Glucose (UA) Urine Ketones Urine Blood Urine Nitrite Urine Bilirubin Urine Urobilinogen Ur Leukocyte Esterase Urine Comment Adenovirus (PCR) Anaplasma Smear A. phagocytophilum DNA Babesia Smear Babesia microti DNA PCR B. pertussis DNA (PCR) B.parapertussis DNA PCR Lyme Disease Screen Negative (Negative) C. pneumoniae DNA (PCR) Coronavirus OC43 (PCR) Coronavirus HKU1 (PCR) Coronavirus 229E (PCR) SARS-CoV-2 (PCR) Coronavirus NL63 (PCR) Human Metapneumovir PCR Influenza Type B (PCR) M. pneumoniae (PCR) Parainfluenza 1 (PCR) Parainfluenza 2 (PCR) Parainfluenza 3 (PCR) Parainfluenza 4 (PCR) RSV (PCR) Entero/Rhino (PCR) Diagnostic Findings Chest X-Ray 05/19/25 11:21 EXAM: Radiograph of the Chest 1 View INDICATION: TECHNIQUE: Frontal view of the chest. Image obtained at 11:31 AM. COMPARISON: 12:37 AM the same day FINDINGS: Lungs and pleural spaces: Improved basilar ventilation. No consolidation or pulmonary edema. No pleural effusion or pneumothorax. Heart: Stable large cardiac shadow. Mediastinum: Normal contour. Bones/joints: Degenerative changes noted throughout the spine and both shoulders. No lytic or blastic lesions noted. Soft tissues: No abnormality noted. No radiopaque foreign body noted. Upper abdomen: No abnormality noted. IMPRESSION: No acute cardiopulmonary disease. ACT 112: N/A Electronically signed by Dee Dee Vallejo 05-19-2025 11:58 AM Abdomen/Pelvis CT 05/19/25 12:12 EXAM: CT Chest Abdomen and Pelvis With Intravenous Contrast INDICATION: Sepsis. TECHNIQUE: Axial computed tomography images of the chest, abdomen and pelvis with intravenous contrast. Sagittal and coronal reformatted images were created and reviewed. This CT exam was performed using one or more of the following dose reduction techniques: automated exposure control, adjustment of the mA and/or kV according to patient size, and/or use of iterative reconstruction technique. CONTRAST: 94ml of Optiray 320 was administered intravenously. COMPARISON: No relevant prior studies available. FINDINGS: Limitations: None. CHEST: Lungs and pleural spaces: There is mild nodularity along the right fissures. No further assessment required. There is coarse streaky scarring or atelectasis in the dependent lower lobes and in the lingula. No pleural effusion or pneumothorax. No bronchiectasis, honeycombing or reticulation. No mass. Heart: Mild enlarged heart. No pericardial effusion. Calcification of the aortic valve and coronary arteries noted. Mediastinum: Small sliding hiatal hernia. Thyroid: No abnormality noted. ABDOMEN: Liver: Normal size and contour. Hypodense typical of steatosis. No mass or ductal dilation. Gallbladder and bile ducts: No calcified stones or surrounding fluid. No ductal dilation. Pancreas: Homogeneous enhancement. No mass, inflammation or ductal dilation. Spleen: No significant abnormality noted. Adrenals: No significant abnormality noted. Kidneys and ureters: Normal enhancement. No mass, hydronephrosis or visualized stone. Stomach and bowel: Colonic diverticulosis without diverticulitis. No intestinal thickening or obstruction. PELVIS: Appendix: No findings to suggest acute appendicitis. Bladder: No filling defects to suggest mass or large stone. No inflammation. Reproductive: No significant abnormality noted. CHEST, ABDOMEN and PELVIS: Intraperitoneal space: No free air. No significant fluid collection. Retroperitoneal space: No abnormality noted. No fluid collection. Bones/joints: Degenerative changes noted in the scoliotic spine. No acute osseous abnormality noted. Soft tissues: No significant abnormality noted. Vasculature: Atherosclerotic calcification of the aorta and branches. No aneurysm. Lymph nodes: No enlarged lymph nodes. IMPRESSION: 1. Streaky linear scarring or atelectasis in the lungs. 2. No acute abnormality in the abdomen or pelvis. 3. Hepatic steatosis. ACT 112: N/A Electronically signed by Yoni Dee Dee 05-19-2025 13:[address] 05/19/25 12:12 EXAM: CT Chest Abdomen and Pelvis With Intravenous Contrast INDICATION: Sepsis. TECHNIQUE: Axial computed tomography images of the chest, abdomen and pelvis with intravenous contrast. Sagittal and coronal reformatted images were created and reviewed. This CT exam was performed using one or more of the following dose reduction techniques: automated exposure control, adjustment of the mA and/or kV according to patient size, and/or use of iterative reconstruction technique. CONTRAST: 94ml of Optiray 320 was administered intravenously. COMPARISON: No relevant prior studies available. FINDINGS: Limitations: None. CHEST: Lungs and pleural spaces: There is mild nodularity along the right fissures. No further assessment required. There is coarse streaky scarring or atelectasis in the dependent lower lobes and in the lingula. No pleural effusion or pneumothorax. No bronchiectasis, honeycombing or reticulation. No mass. Heart: Mild enlarged heart. No pericardial effusion. Calcification of the aortic valve and coronary arteries noted. Mediastinum: Small sliding hiatal hernia. Thyroid: No abnormality noted. ABDOMEN: Liver: Normal size and contour. Hypodense typical of steatosis. No mass or ductal dilation. Gallbladder and bile ducts: No calcified stones or surrounding fluid. No ductal dilation. Pancreas: Homogeneous enhancement. No mass, inflammation or ductal dilation. Spleen: No significant abnormality noted. Adrenals: No significant abnormality noted. Kidneys and ureters: Normal enhancement. No mass, hydronephrosis or visualized stone. Stomach and bowel: Colonic diverticulosis without diverticulitis. No intestinal thickening or obstruction. PELVIS: Appendix: No findings to suggest acute appendicitis. Bladder: No filling defects to suggest mass or large stone. No inflammation. Reproductive: No significant abnormality noted. CHEST, ABDOMEN and PELVIS: Intraperitoneal space: No free air. No significant fluid collection. Retroperitoneal space: No abnormality noted. No fluid collection. Bones/joints: Degenerative changes noted in the scoliotic spine. No acute osseous abnormality noted. Soft tissues: No significant abnormality noted. Vasculature: Atherosclerotic calcification of the aorta and branches. No aneurysm. Lymph nodes: No enlarged lymph nodes. IMPRESSION: 1. Streaky linear scarring or atelectasis in the lungs. 2. No acute abnormality in the abdomen or pelvis. 3. Hepatic steatosis. ACT 112: N/A Electronically signed by Dee Dee Vallejo 05-19-2025 13:17 PM Supervising Physician Co-Signing Physician Notes Attending addendum: I have physically seen this patient, have supervised the VIVIANA's activities, and agree with the H&P unless as otherwise noted. Assessment and Plan: Sepsis- Urinalysis just returned abnormal compared to yesterday, which is consistent with his medical history of previous prostate surgery Follow urine culture sensitivity Follow blood culture and sensitivity Empiric broad-spectrum treatment with vancomycin IV and Zosyn IV IVF's as noted Hypoxia/ recent pneumonia- In part due to decreased lung expansion associated with obesity and probable obesity hypoventilation syndrome Antibiotics as above Right upper extremity cellulitis- Please discuss PICC line Secondary to previous IV site Antibiotics as above Remaining orders and notations as noted PG Care Time/CCT Total # of Minutes Spent Total Time Spent with Patient: Total time spent is greater than 50% in coordination of care (as documented) at patient's floor/unit and/or counseling patient: Coding Level of Care Code 29505 INT INP/OBS CARE 3/75MIN Diagnoses Sepsis A41.9 Immunocompromised patient D84.9 SIRS (systemic inflammatory response syndrome) R65.10 Elevated procalcitonin R79.89 Myalgia M79.10 Pneumonia J18.9 BPH without obstruction/lower urinary tract symptoms N40.0
[2025-05-19 15:55] LABS: Creatine Kinase 86.0 U/L (30-223)
[2025-05-19 16:26] LABS: Appearance Urine Clear (Clear); Bacteria Urine Automated None Seen (None Seen); Cast Urine Automated 0-2 /lpf (0-2); Epithelial Cell Urine Auto 0-2 /hpf (0-2); Glucose Urine UA 3+ (Negative); RBC Urine Automated 0-2 /hpf (0-2); WBC Urine Automated 21-50 /hpf (0-5)
[2025-05-19 16:46] LABS: Coronavirus 229E PCR Not Detected (NotDetected); Coronavirus CoV-2 (COVID19)PCR Not Detected (NotDetected); Coronavirus HKU1 PCR Not Detected (NotDetected); Coronavirus NL63 PCR Not Detected (NotDetected); Coronavirus OC43PCR Not Detected (NotDetected); Human Metapneumovirus PCR Not Detected (NotDetected); Parainfluenza Virus 1 PCR Not Detected (NotDetected); Parainfluenza Virus 2 PCR Not Detected (NotDetected); Parainfluenza Virus 3 PCR Not Detected (NotDetected); Rhinovirus/Enterovirus PCR Not Detected (NotDetected)
[2025-05-19 16:47] LABS: Chlamydia pneumoniae PCR Not Detected (NotDetected); Parainfluenza Virus 4 PCR Not Detected (NotDetected); Respiratory Syncytial VirusPCR Not Detected (NotDetected)
--- NOTE | 2025-05-19 17:11 | CT Scan Report ---
CT head without contrast History: Weakness Comparison: None Technique: Using multidetector thin collimation helical acquisition technique, axial, coronal and sagittal CT images from the skull base to the vertex were obtained without intravenous contrast. Dose reduction techniques were achieved by using automatic exposure control and/or adjustment of mA and/or kV according to patient size and/or use of iterative reconstruction technique. Findings: No intracranial hemorrhage, mass-effect, or midline shift. The ventricles are proportionate to the cerebral sulci. The douglass to white matter differentiation of the cerebral hemispheres is preserved. The basal cisterns are patent. The visualized paranasal sinuses are clear. Mastoid air cells are clear. Impression: No acute intracranial pathology. Electronically signed by Myke De León 05-19-2025 5:10 PM
[2025-05-19] MEDS ORDERED: GLUCOSE 10 TAB/TUBE PO PRN (18:04)
[2025-05-19] MEDS ORDERED: GLUCAGON FOR INJ 1 MG VIAL SQ PRN (18:04)
[2025-05-19] MEDS ORDERED: DEXTROSE 50% 50 ML SYRINGE IV PRN (18:04)
[2025-05-19] MEDS ORDERED: PHARMACY GLYCEMIC MGMT CONSULT PRN (18:04)
[2025-05-19] MEDS ORDERED: ONDANSETRON INJ 2 MG/ML 2 ML VIAL IV PRN (18:04)
[2025-05-19] MEDS ORDERED: ACETAMINOPHEN 500 MG TAB PO PRN (18:04)
[2025-05-19] MEDS ORDERED: CARBOHYDRATES FOR HYPOGLYCEMIA PO PRN (18:04)
[2025-05-19] MEDS ORDERED: VANCOMYCIN CONSULT ACTIVE PRN (18:04)
[2025-05-19] MEDS ORDERED: GLUCOSE 40% GEL 15 GM TUBE PO PRN (18:04)
[2025-05-19] MEDS: INSULIN ASPART PER UNIT CHARGE SC SCH (18:45)
[2025-05-19] MEDS: D5W AND 1/2NSS + 20MEQ KCL 20 MEQ/1,000 ML BAG IV SCH (19:50)
[2025-05-19] MEDS: PIPERACILLIN/TAZOBACTAM 4.5 GM/100 ML BAG IV SCH (19:51)
[2025-05-19] MEDS: VANCOMYCIN HCL 2,750 MG in SODIUM CHLORIDE 0.9% 500 ML IV ONE (20:52)
[2025-05-20] MEDS: PIPERACILLIN/TAZOBACTAM 4.5 GM/100 ML BAG IV SCH (01:44)
--- NOTE | 2025-05-20 02:17 | Ultrasound Report ---
Exam(s): US VENOUS RIGHT UPPER EXTREMITY EXAM: US Duplex Right Upper Extremity Veins CLINICAL HISTORY: Reason for exam: infiltration/swelling/streaking, eval dvt. TECHNIQUE: Real-time duplex ultrasound scan of the right upper extremity veins integrating B-mode two-dimensional vascular structure, Doppler spectral analysis, color flow Doppler imaging and compression. COMPARISON: No relevant prior studies available. FINDINGS: Deep veins: Unremarkable. No DVT in the internal jugular, subclavian, axillary, or brachial veins. The veins demonstrate normal color flow, are normally compressible, with normal phasic flow and/or augmentation response. Superficial veins: Unremarkable. No thrombus in the visualized basilic and cephalic veins. Soft tissues: No acute findings. IMPRESSION: Normal right upper extremity duplex venous ultrasound. Electronically signed by: Jesus Manuel Sepulveda MD 05/20/25 02:16 AM
[2025-05-20] MEDS: VANCOMYCIN HCL 1,500 MG in SODIUM CHLORIDE 0.9% 500 ML IV SCH (06:17)
[2025-05-20 07:52] LABS: Hematocrit (blood only) 42.3 % (42.0-52.0); Hemoglobin 14.4 g/dl (14.0-18.0); Mean Corpuscular Hemoglobin 30.2 pg (25.0-34.0); Mean Corpuscular Volume 88.7 fL (80.0-100.0); Platelet Count 95 K/uL (130-400); RDW Standard Deviation 44.5 fL (36.4-46.3); Red Blood Count 4.77 M/uL (4.70-6.10); White Blood Count 5.38 K/ul (4.8-10.8)
[2025-05-20 08:01] LABS: Alanine Aminotransferase 54.0 U/L (7-52); Albumin Globulin Ratio 1.1 (0.9-2); Alkaline Phosphatase 40.0 U/L (34-104); Anion Gap 8.0 (3-11); Bilirubin,Total 1.3 mg/dl (0.2-1.0); Blood Urea Nitrogen 17.0 mg/dl (6-23); Calcium 8.0 mg/dl (8.6-10.3); Carbon Dioxide 25.0 mmol/L (21-32); Chloride 100.0 mmol/L (98-107); Creatinine Clr Calc Pharmacy 166.5 ml/min; Globulin 3.0 gm/dl (2.5-4.0); Glucose 145.0 mg/dl (70-99(Fasting)); Magnesium 2.3 mg/dl (1.7-2.4); Potassium 3.8 mmol/L (3.5-5.1); Sodium 133.0 mmol/L (136-145); Total Protein 6.4 gm/dl (6.0-8.3)
[2025-05-20 08:27] LABS: Immature Granulocytes # (auto) 0.03 K/uL (0.01-0.20); Immature Granulocytes % (auto) 0.6 %
--- NOTE | 2025-05-20 08:28 | Hospitalist Progress Note ---
Date of Service May 20, 2025 Assessment & Plan (1) SIRS (systemic inflammatory response syndrome): (2) Sepsis: (3) Pneumonia: (4) Immunocompromised patient: (5) Elevated procalcitonin: (6) Myalgia: (7) BPH without obstruction/lower urinary tract symptoms: Plan #Sepsis - tachycardic, elevated procal 2.62 with elevated lactic 2.6 (improved 1.4 s/p 1L IVF). . Prior ER visit prior evening w/ dc on Azithro/Cefdinir but significant weakness/confusion and hypoxia on admission requiring oxygen and 3 people to get onto liter from home CT chest w/ atelectasis, no consolidative pna. ?pulm congestion. Biofire obtained and negative Procal elevated to 2.6, hx prostate surgery UA on repeat concerning for infection for source given change from overnight before while initially possible concerns for neurological process w/ reports of headache but no meningeal signs but obtained CT head for evaluation CT head negative Empiric abx: Zosyn, Vancomycin given immunocompromised patient Initial lyme screen negative, peripheral smear w/o evidence for anaplasmosis but has had multiple ticks/no rashes and DNA pcr pending IVF w/ D5 + 20meq 1/2NS provided for metabolic acidosis w/ elevated anion gap to 13 --> Resolved on repeat testing. IVF has been discontinued SIGNIFICANT improvement on exam/mentation 05/20, now off supplemental O2 Pulmonary toilet, sputum if able Continue empiric abx Ddimer elevated but no longer hypoxia/no pleuritic pain reported. Did obtain venous doppler LUE for infiltration/exam in ER. Negative for DVT. Added Lovenox SQ for DVT proph. Ddimer resulted last evening and elevated but w/ negative doppler being discussed w/ Dr Waters who does not feel needing to obtain CT chest at this time but should be considered pending course. Tele w/o evidence for afib, TSH wnl. ?2nd to recent dental procedure, no issues swallowing/mass/abscess. Again, would monitor blood cultures, echo has been ordered. Follow up tick send out tick studies PT/OT consults to ensure safe to return home #RUE IV infiltration/erythema - concerns for infection/cellulitis vs clot. doppler negative (+ddimer), CT head negative. No further headache reported but should monitor for issues RUE appears improved, continue elevation, abx as above. Monitor for issues #Hypoxia - tx for presumed pna prior should be covered w/ above. VBG noted w/ pH 7.4, low pCO2. ?hypoventilation/underlying IGLESIA?. Biofire negative. Chest imaging CT w/ atelectasis, ?pulm edema No further O2 requirement since antibiotics and IVF provided weighing against pulm edema ?other viral syndrome/process continue abx/pulmonary toilet ?outpatient sleep study - check overnight pox #DM II- last A1c in system 2017 ~8.3 --> improved to 7.7 on repeat on baseline mounjaro/metformin/Jardiance Elevated AG to 13 on admission w/ noted pH/Co2 and IVF w/ dextrose given poor PO intake and normalized on repeat testing Pharmacy consulted for assistance w/ glycemic while inpatient #HTN - BP stable at present and w/ concerns for sepsis/borderline BP at home held usual medications with exception to losartan BUN/Cr stable, PO intake much improved Can resume HCTZ/spironolactone pending serial BPs this afternoon #BPH, possible UTI? - hx TURP, prior UA overnight without evidence for infection from the prior ER visit however repeat concerning for possible UTI Follow urine cx #Hyponatremia -- appears acute on chronic in nature. Is on HCTZ/spironolactone at baseline, denies hx CHF. TSH checked and wnl. Cortisol AM acceptable Na improved to 133 Discussing with supervising provider to resume, serum osm to be obtained BMP in AM DVT proph: SCDs have been ordered, Lovenox SQ added Dispo: continue to monitor on telemetry, PT/OT consulted Remains on empiric abx at this time/monitoring blood cultures. Consideration for further imaging/testing per discussion with supervising provider. See addendum for additional recs per Dr Waters Admission and Anticipated Discharge Date Admission Date: May 19, 2025 Supervising Physician Co-Signing Physician Notes The patient was not seen by me. The chart was reviewed. Case discussed with MADELIN Garcia. Agree with assessment and plan Subjective Evaluated around lunch. MUCH more awake/alert, improved overall symptoms. Can tell me where he is/month/year. at bedside. Discussed suspicion for urinary source given repeat UA/surgical history and leg weakness. Reports worked with therapy today, did MUCH better than when discharged from ER yesterday morning. Discussed waiting cultures and review therapy evaluations but if blood cultures remain negative could consider dc on oral abx pending sensitivities. Notable he did have some dental work a while back, some cracked teeth. No issues swallowing. Monitoring on telemetry and ECHO pending given presentation and will monitor blood cultures. Checking overnight pulse ox, can arrange overnight O2 until arrange outpatient sleep study pending results. Questions/concerns addressed. Physical Exam 2 Physical Exam: General: 70yo obese male sitting up in bed today, appears MUCH improved, alert/oriented, no further diaphoresis, on room air HEENT: atraumatic, normocephalic, thick neck, trachea midline, mm dry, no increased pain w/ flexion of neck but is red posteriorly Resp: diminished in the bases, bibasilar crackles, decreased respiratory effort, no further cough, now on room air CV: regular, no overt murmur/rub/gallop, trace pedal edema, pulses present, no calf tenderness GI: +BS, obese, slight distension but nontender no joseph MSK/Neuro: generalized weakness but sensation intact, strength equal, nonfocal, able to follow commands, no slurred speech/facial droop Psych: alert/oriented x3 Skin: +edema/erythema RUE w/ lymphangitic streaking mid upper arm (IMPROVING) pulses present/sensation intact Results & Data Results & Data Vital Signs (Past 12 Hours) Vital Signs Temp Pulse Pulse Resp BP Pulse Ox O2 Del Method 05/20/25 07:50 36.8 C 66 16 122/68 93 Room Air 05/20/25 03:03 36.5 C 75 20 102/62 94 Room Air 05/19/25 23:00 36.8 C 64 20 107/64 96 Room Air 05/19/25 21:44 67 Laboratory Results 05/20/25 07:21 05/20/25 07:21 ESR 16 CRP 19.86 Cortisol AM 17.2 TB 1.3, AST 61, ALT 54, ALP 40 A1c 7.7 Biofire negative Babesia/Anaplasmosis DNA pending Ddimer 7360 Diagnostic Findings Chest X-Ray 05/19/25 11:21 EXAM: Radiograph of the Chest 1 View INDICATION: TECHNIQUE: Frontal view of the chest. Image obtained at 11:31 AM. COMPARISON: 12:37 AM the same day FINDINGS: Lungs and pleural spaces: Improved basilar ventilation. No consolidation or pulmonary edema. No pleural effusion or pneumothorax. Heart: Stable large cardiac shadow. Mediastinum: Normal contour. Bones/joints: Degenerative changes noted throughout the spine and both shoulders. No lytic or blastic lesions noted. Soft tissues: No abnormality noted. No radiopaque foreign body noted. Upper abdomen: No abnormality noted. IMPRESSION: No acute cardiopulmonary disease. ACT 112: N/A Electronically signed by Dee Dee Vallejo 05-19-2025 11:58 AM Abdomen/Pelvis CT 05/19/25 12:12 EXAM: CT Chest Abdomen and Pelvis With Intravenous Contrast INDICATION: Sepsis. TECHNIQUE: Axial computed tomography images of the chest, abdomen and pelvis with intravenous contrast. Sagittal and coronal reformatted images were created and reviewed. This CT exam was performed using one or more of the following dose reduction techniques: automated exposure control, adjustment of the mA and/or kV according to patient size, and/or use of iterative reconstruction technique. CONTRAST: 94ml of Optiray 320 was administered intravenously. COMPARISON: No relevant prior studies available. FINDINGS: Limitations: None. CHEST: Lungs and pleural spaces: There is mild nodularity along the right fissures. No further assessment required. There is coarse streaky scarring or atelectasis in the dependent lower lobes and in the lingula. No pleural effusion or pneumothorax. No bronchiectasis, honeycombing or reticulation. No mass. Heart: Mild enlarged heart. No pericardial effusion. Calcification of the aortic valve and coronary arteries noted. Mediastinum: Small sliding hiatal hernia. Thyroid: No abnormality noted. ABDOMEN: Liver: Normal size and contour. Hypodense typical of steatosis. No mass or ductal dilation. Gallbladder and bile ducts: No calcified stones or surrounding fluid. No ductal dilation. Pancreas: Homogeneous enhancement. No mass, inflammation or ductal dilation. Spleen: No significant abnormality noted. Adrenals: No significant abnormality noted. Kidneys and ureters: Normal enhancement. No mass, hydronephrosis or visualized stone. Stomach and bowel: Colonic diverticulosis without diverticulitis. No intestinal thickening or obstruction. PELVIS: Appendix: No findings to suggest acute appendicitis. Bladder: No filling defects to suggest mass or large stone. No inflammation. Reproductive: No significant abnormality noted. CHEST, ABDOMEN and PELVIS: Intraperitoneal space: No free air. No significant fluid collection. Retroperitoneal space: No abnormality noted. No fluid collection. Bones/joints: Degenerative changes noted in the scoliotic spine. No acute osseous abnormality noted. Soft tissues: No significant abnormality noted. Vasculature: Atherosclerotic calcification of the aorta and branches. No aneurysm. Lymph nodes: No enlarged lymph nodes. IMPRESSION: 1. Streaky linear scarring or atelectasis in the lungs. 2. No acute abnormality in the abdomen or pelvis. 3. Hepatic steatosis. ACT 112: N/A Electronically signed by Dee Dee Vallejo 05-19-2025 13:[address] 05/19/25 12:12 EXAM: CT Chest Abdomen and Pelvis With Intravenous Contrast INDICATION: Sepsis. TECHNIQUE: Axial computed tomography images of the chest, abdomen and pelvis with intravenous contrast. Sagittal and coronal reformatted images were created and reviewed. This CT exam was performed using one or more of the following dose reduction techniques: automated exposure control, adjustment of the mA and/or kV according to patient size, and/or use of iterative reconstruction technique. CONTRAST: 94ml of Optiray 320 was administered intravenously. COMPARISON: No relevant prior studies available. FINDINGS: Limitations: None. CHEST: Lungs and pleural spaces: There is mild nodularity along the right fissures. No further assessment required. There is coarse streaky scarring or atelectasis in the dependent lower lobes and in the lingula. No pleural effusion or pneumothorax. No bronchiectasis, honeycombing or reticulation. No mass. Heart: Mild enlarged heart. No pericardial effusion. Calcification of the aortic valve and coronary arteries noted. Mediastinum: Small sliding hiatal hernia. Thyroid: No abnormality noted. ABDOMEN: Liver: Normal size and contour. Hypodense typical of steatosis. No mass or ductal dilation. Gallbladder and bile ducts: No calcified stones or surrounding fluid. No ductal dilation. Pancreas: Homogeneous enhancement. No mass, inflammation or ductal dilation. Spleen: No significant abnormality noted. Adrenals: No significant abnormality noted. Kidneys and ureters: Normal enhancement. No mass, hydronephrosis or visualized stone. Stomach and bowel: Colonic diverticulosis without diverticulitis. No intestinal thickening or obstruction. PELVIS: Appendix: No findings to suggest acute appendicitis. Bladder: No filling defects to suggest mass or large stone. No inflammation. Reproductive: No significant abnormality noted. CHEST, ABDOMEN and PELVIS: Intraperitoneal space: No free air. No significant fluid collection. Retroperitoneal space: No abnormality noted. No fluid collection. Bones/joints: Degenerative changes noted in the scoliotic spine. No acute osseous abnormality noted. Soft tissues: No significant abnormality noted. Vasculature: Atherosclerotic calcification of the aorta and branches. No aneurysm. Lymph nodes: No enlarged lymph nodes. IMPRESSION: 1. Streaky linear scarring or atelectasis in the lungs. 2. No acute abnormality in the abdomen or pelvis. 3. Hepatic steatosis. ACT 112: N/A Electronically signed by Dee Dee Vallejo 05-19-2025 13:[address] 05/19/25 15:32 CT head without contrast History: Weakness Comparison: None Technique: Using multidetector thin collimation helical acquisition technique, axial, coronal and sagittal CT images from the skull base to the vertex were obtained without intravenous contrast. Dose reduction techniques were achieved by using automatic exposure control and/or adjustment of mA and/or kV according to patient size and/or use of iterative reconstruction technique. Findings: No intracranial hemorrhage, mass-effect, or midline shift. The ventricles are proportionate to the cerebral sulci. The douglass to white matter differentiation of the cerebral hemispheres is preserved. The basal cisterns are patent. The visualized paranasal sinuses are clear. Mastoid air cells are clear. Impression: No acute intracranial pathology. Electronically signed by Myke De León 05-19-2025 5:10 PM Venous Doppler Study 05/19/25 18:04 Exam(s): US VENOUS RIGHT UPPER EXTREMITY EXAM: US Duplex Right Upper Extremity Veins CLINICAL HISTORY: Reason for exam: infiltration/swelling/streaking, eval dvt. TECHNIQUE: Real-time duplex ultrasound scan of the right upper extremity veins integrating B-mode two-dimensional vascular structure, Doppler spectral analysis, color flow Doppler imaging and compression. COMPARISON: No relevant prior studies available. FINDINGS: Deep veins: Unremarkable. No DVT in the internal jugular, subclavian, axillary, or brachial veins. The veins demonstrate normal color flow, are normally compressible, with normal phasic flow and/or augmentation response. Superficial veins: Unremarkable. No thrombus in the visualized basilic and cephalic veins. Soft tissues: No acute findings. IMPRESSION: Normal right upper extremity duplex venous ultrasound. Electronically signed by: Jesus Manuel Sepulveda MD 05/20/25 02:16 AM PG Care Time/CCT Total # of Minutes Spent Total Time Spent with Patient: Total time spent is greater than 50% in coordination of care (as documented) at patient's floor/unit and/or counseling patient: Coding Level of Care Code 31358 SUB INP/OBS CARE 350MIN Diagnoses SIRS (systemic inflammatory response syndrome) R65.10 Sepsis A41.9 Pneumonia J18.9 Immunocompromised patient D84.9 Elevated procalcitonin R79.89 Myalgia M79.10 BPH without obstruction/lower urinary tract symptoms N40.0
[2025-05-20] MEDS: LANTUS PER UNIT CHARGE SC SCH (08:42)
[2025-05-20 08:44] LABS: Hemoglobin A1C 7.7 % (4.5-5.6)
[2025-05-20] MEDS: LOSARTAN POTASSIUM 50 MG TAB PO SCH (08:46)
[2025-05-20] MEDS: FINASTERIDE 5 MG TAB PO SCH (08:46)
--- NOTE | 2025-05-20 10:47 | Pharmacy Report ---
Pharmacy PK ABX Note - Date of Service May 20, 2025 - Assessment and Plan Assessment 70 year old M on Humira (RA) receiving empiric vancomycin/zosyn for sepsis, ?urine source/PNA. Pertinent microbiologic data includes: Urine and blood cultures pending. Normal WBC, Tmax 38.4, Initial procal 2.62, Lactate 2.6 Plan Vancomycin * Loading dose: 2750 mg IV x 1 * Maintenance dose: 1500 mg IV every 12 hours * Regimen is predicted to achieve target AUC/LIZY of 400-600 mg/L.hr * Random level to be ordered if continued >48 hours Pharmacy will continue to follow and will adjust dose/frequency as necessary. Thank you. Pharmacy has transitioned to AUC monitoring for vancomycin. AUC/LIZY is the preferred PK/PD target and is associated with decreased risk of nephrotoxicity compared to traditional trough targets.
--- NOTE | 2025-05-20 13:36 | Pharmacy Report ---
Pharmacy Glycemic Short Note 2 - Date of Service May 20, 2025 - Glycemic Short BSG Results (Last 24 hours): 05/19/25 05/19/25 05/19/25 18:11 20:15 22:13 Glucose POC Glucose 132 H 213 H 185 H 05/20/25 05/20/25 05/20/25 07:03 07:21 11:35 Glucose 145 H POC Glucose 138 H 162 H OUTPATIENT ANTIDIABETIC REGIMEN: * Metformin 1 g PO BIDM * Empagliflozin 25 mg PO daily HbA1c: 7.7% (05/20/25) ASSESSMENT: * DL is a 70 year old male w/ sepsis secondary to unknown source * Immunocompromised (on chronic adalimumab) * Broad spectrum antibiotic regimen w/ vancomycin and Zosyn * Dextrose-containing maintenance fluids initiated on admission, but have now been discontinued * Blood sugars reasonably controlled so far - will utilize conservative basal/bolus regimen for now PLAN FOR INPATIENT GLYCEMIC CONTROL: * Hold outpatient oral diabetes medications * Basal insulin * Lantus 10 units SQ daily * Bolus insulin * NovoLog per scale ACHS or Q6hrs while NPO * Goal Range: Low 120 mg/dL - High 150 mg/dL * Correction Factor: 30 mg/dL/unit * Nutritional / Prandial insulin per carb ratio of 1 unit per 10 grams CHO consumed
[2025-05-21 07:42] LABS: Hematocrit (blood only) 40.2 % (42.0-52.0); Hemoglobin 14.1 g/dl (14.0-18.0); Mean Corpuscular Hemoglobin 30.7 pg (25.0-34.0); Mean Corpuscular Volume 87.6 fL (80.0-100.0); Platelet Count 93 K/uL (130-400); RDW Standard Deviation 42.9 fL (36.4-46.3); Red Blood Count 4.59 M/uL (4.70-6.10); White Blood Count 4.67 K/ul (4.8-10.8)
[2025-05-21 08:05] LABS: Alanine Aminotransferase 45.0 U/L (7-52); Alkaline Phosphatase 39.0 U/L (34-104); Anion Gap 6.0 (3-11); Bilirubin,Total 1.1 mg/dl (0.2-1.0); Blood Urea Nitrogen 12.0 mg/dl (6-23); Calcium 7.6 mg/dl (8.6-10.3); Carbon Dioxide 25.0 mmol/L (21-32); Chloride 103.0 mmol/L (98-107); Creatinine Clr Calc Pharmacy 224.5 ml/min; Glucose 123.0 mg/dl (70-99(Fasting)); Magnesium 2.3 mg/dl (1.7-2.4); Potassium 3.6 mmol/L (3.5-5.1); Sodium 134.0 mmol/L (136-145); Total Protein 6.3 gm/dl (6.0-8.3)
--- NOTE | 2025-05-21 10:17 | Electrocardiogram Report ---
Test Reason : Blood Pressure : */* mmHG Vent. Rate : 98 BPM Atrial Rate : 98 BPM P-R Int : 174 ms QRS Dur : 96 ms QT Int : 346 ms P-R-T Axes : 34 -12 51 degrees QTcB Int : 441 ms Normal sinus rhythm Normal ECG When compared with ECG of 19-May-2025 00:15, (unconfirmed) T wave inversion no longer evident in Inferior leads Confirmed by Leonides Maldonado ([id number]) on 05/21/2025 10:17:20 AM Referred By: REFERRED SELF Confirmed By: Leonides Maldonado
[2025-05-21 10:20] LABS: Hep B Surface Ag with confirm Negative (Negative)
[2025-05-21 10:24] LABS: Hep C Ab Rflx HepCQuant RNA Negative (Negative)
--- NOTE | 2025-05-21 12:15 | Hospitalist Progress Note ---
Date of Service May 21, 2025 Assessment & Plan (1) Sepsis: (2) Immunocompromised patient: (3) Elevated procalcitonin: (4) BPH without obstruction/lower urinary tract symptoms: Plan This patient is a 70-year-old male with a history of psoriatic arthritis on adalimumab, DM2, HTN, fatty liver, obesity, BPH s/p TURP, here with sepsis likely from acute prostatitis. #Sepsis/suspected acute prostatitis/UTI/acute metabolic encephalopathy-on admission was tachycardic, febrile, elevated procal 2.62 with elevated lactic 2.6 and an abnormal UA. He was seen in the ED on the prior evening for weakness and fall and thought to have pneumonia on CXR-was discharged on Azithro/Cefdinir. Presented again with weakness/confusion and hypoxia on admission requiring oxygen. CT chest with no pneumonia and only some atelectasis and possible pulmonary congestion. Bio fire respiratory panel negative. UA consistent with infection. Blood cultures remain no growth and unfortunately urine culture no growth but did receive antibiotics earlier in the day which may have sterilize the urine. It is also not uncommon for prostatitis to have a sterile urine culture. Lyme titer negative, anaplasmosis and babesiosis smear negative with PCR pending. CT head negative. Now greatly improved with broad-spectrum antibiotics with Zosyn and vancomycin. Ddimer elevated but as he was no longer hypoxia/no pleuritic pain reported, venous Doppler upper extremity negative. CT angiogram chest not obtained. -Continue broad-spectrum antibiotics with vancomycin and Zosyn for now but can likely de-escalate to ceftriaxone on 05/22 versus oral antibiotics for prostatitis - Follow urine and blood cultures - Repeat anaplasmosis/babesiosis smear and continue to follow PCR testing-he did receive 1 dose of azithromycin which would partially treat babesiosis-he does have elevated LFTs and low platelets - Follow CBC, BMP, and procalcitonin in the morning - Follow acute hepatitis panel which is pending #RUE IV infiltration-this occurred during his previous ED admission but does not seem consistent with cellulitis. Also his acute illness and fever were ongoing before this even happened. Doppler negative for DVT - Monitor and elevate, compression wrap #Hypoxia -now resolved. Given obesity, question if has hypoventilation/underlying IGLESIA. Biofire negative. Chest imaging CT w/ atelectasis, ?pulm edema -Should have outpatient sleep study #Elevated LFTs/thrombocytopenia-does have fatty liver on imaging. LFTs are improving with treatment of sepsis. Thrombocytopenia could also be from sepsis. Anaplasmosis and babesiosis smears negative, PCR is pending - Repeating babesiosis/anaplasmosis smear as above - Follow LFTs in the morning - Follow CBC in the morning #DM II- A1c 7.7 percent, on baseline mounjaro/metformin/Jardiance and has lost 100 pounds fairly recently -Pharmacy consulted for assistance w/ glycemic while inpatient -BSG's, DM2 diet #HTN -BPs are normal, BUN/Cr stable, PO intake much improved -Holding home HCTZ/spironolactone but can likely resume on discharge - Continue home losartan #BPH s/p TURP-treating for prostatitis as abov #Hyponatremia -- appears acute on chronic in nature. Is on HCTZ/spironolactone at baseline, denies hx CHF. Sodium is now improved to 134 with hydration and holding diuretics. TSH checked and wnl. Cortisol AM acceptable -Follow BMP in the morning #Psoriatic arthritis-recommend holding home adalimumab until infection cleared DVT proph: SCDs, Lovenox SQ Dispo: continued stay on PCU but could possibly discharge to home on 05/22 if continues to improve Admission and Anticipated Discharge Date Admission Date: May 19, 2025 Subjective Overall feeling much better. Denies headache or lightheadedness, no nausea or vomiting, no abdominal pains or urinary problems. No diarrhea in fact he was feeling a bit constipated today but had a bowel movement. He denies chest pains or shortness of breath, no cough. Telemetry with normal sinus rhythm and PACs with rates in the 60s I discussed his care at length with his at the bedside Physical Exam Constitutional: WD/WN, vitals as above + obese Eyes: + anicteric sclerae Respiratory: normal respiratory effort, lungs clear to auscultation Cardiovascular: RRR, no murmur, no edema Gastrointestinal (Abdomen): normal bowel sounds, soft, nontender, no hepatosplenomegaly Skin: no rashes, warm and dry Right forearm with bruising and mild induration without erythema. There is also a small 2 cm fluid-filled blister with serous fluid in the right dorsal forearm Psychiatric: A+Ox3, euthymic affect Results & Data Results & Data Vital Signs (Past 12 Hours) Vital Signs Temp Pulse Pulse Resp BP Pulse Ox O2 Del Method 05/21/25 10:55 36.7 C 61 18 111/63 96 Room Air 05/21/25 07:34 36.7 C 60 18 111/72 94 Room Air 05/21/25 07:16 67 05/21/25 02:40 37.3 C 60 19 116/65 94 Nasal Cannula Laboratory Results CBC, BMP, LFTs, urine culture, blood culture, babesiosis/anaplasmosis smear, CRP reviewed PG Care Time/CCT Total # of Minutes Spent Total Time Spent with Patient: Total time spent is greater than 50% in coordination of care (as documented) at patient's floor/unit and/or counseling patient: Coding Level of Care Code 73569 SUB INP/OBS CARE 3/50MIN Diagnoses Sepsis A41.9 Immunocompromised patient D84.9 Elevated procalcitonin R79.89 BPH without obstruction/lower urinary tract symptoms N40.0
--- NOTE | 2025-05-21 14:04 | Pharmacy Report ---
Pharmacy PK ABX Note - Date of Service May 21, 2025 - Assessment and Plan Assessment 05/21: Vancomycin level drawn today was 8mcg/mL which extrapolates to an AUC below the goal range. The maintenance dose of vancomycin has been increased as the vancomycin is to be continued for cellulitis * Preliminary blood culutures x 2 from 05/19 are NGTD; urine culture from 05/19 is <1,000 col/ml * Renal function has been stable, continued to be febrile yesterday, and normal WBC 05/20: 70 year old M on Humira (RA) receiving empiric vancomycin/zosyn for sepsis, ?urine source/PNA. Pertinent microbiologic data includes: Urine and blood cultures pending. Normal WBC, Tmax 38.4, Initial procal 2.62, Lactate 2.6 Plan Vancomycin * vanco level = 8mcg/mL which extrapolates to an AUC of 268mg/L.hr * Increased maintenance dose to 1750 mg IV every 8 hours * Regimen is predicted to achieve target AUC/LIZY of 400-600 mg/L.hr * Another vanco level has been scheduled for 05/22 at 1300. Zosyn 4.5gm iv q 8 hours Pharmacy will continue to follow and will adjust dose/frequency as necessary. Thank you. Pharmacy has transitioned to AUC monitoring for vancomycin. AUC/LIZY is the preferred PK/PD target and is associated with decreased risk of nephrotoxicity compared to traditional trough targets.
[2025-05-21] MEDS: VANCOMYCIN HCL 1,750 MG in SODIUM CHLORIDE 0.9% 500 ML IV SCH (14:38)
[2025-05-22 06:29] LABS: Hematocrit (blood only) 41.0 % (42.0-52.0); Hemoglobin 14.3 g/dl (14.0-18.0); Mean Corpuscular Hemoglobin 30.6 pg (25.0-34.0); Mean Corpuscular Volume 87.8 fL (80.0-100.0); Platelet Count 116 K/uL (130-400); RDW Standard Deviation 43.1 fL (36.4-46.3); Red Blood Count 4.67 M/uL (4.70-6.10); White Blood Count 4.94 K/ul (4.8-10.8)
[2025-05-22 06:34] LABS: Alanine Aminotransferase 48.0 U/L (7-52); Albumin Globulin Ratio 1.0 (0.9-2); Alkaline Phosphatase 41.0 U/L (34-104); Anion Gap 7.0 (3-11); Bilirubin,Total 1.0 mg/dl (0.2-1.0); Blood Urea Nitrogen 11.0 mg/dl (6-23); Calcium 7.7 mg/dl (8.6-10.3); Carbon Dioxide 24.0 mmol/L (21-32); Chloride 106.0 mmol/L (98-107); Creatinine Clr Calc Pharmacy 195.7 ml/min; Globulin 3.1 gm/dl (2.5-4.0); Glucose 133.0 mg/dl (70-99(Fasting)); Potassium 3.8 mmol/L (3.5-5.1); Sodium 137.0 mmol/L (136-145); Total Protein 6.3 gm/dl (6.0-8.3)
[2025-05-22 06:41] LABS: Polychromasia 1+
[2025-05-22 11:09] LABS: ALC (manual) 2.77 K/uL (1.2-3.4); ANC (manual) 1.38 K/uL (1.4-6.5); Reactive Lymphocytes # (manual) 1.24 K/uL; Reactive Lymphocytes % (manual) 25 %
--- NOTE | 2025-05-22 13:10 | Pharmacy Report ---
Pharmacy Glycemic Short Note 2 - Date of Service May 22, 2025 - Glycemic Short BSG Results (Last 24 hours): 05/21/25 05/21/25 05/22/25 16:18 20:13 05:36 Glucose 133 H POC Glucose 123 H 145 H 05/22/25 05/22/25 07:33 11:21 Glucose POC Glucose 129 H 154 H OUTPATIENT ANTIDIABETIC REGIMEN: * Metformin 1 g PO BIDM * Empagliflozin 25 mg PO daily HbA1c: 7.7% (05/20/25) ASSESSMENT: 05/22: * Edmond received a total of 25 units of insulin yesterday (10 units were basal and 15 units were bolus). BSGs were in goal range except for the lunch time reading which was slightly high. * Fasting BSG was in the goal range so will continue Lantus without change. Bolus insulin regimen will also be continued without change (CF was tightened yesterday) 05/20: * LURDES is a 70 year old male w/ sepsis secondary to unknown source * Immunocompromised (on chronic adalimumab) * Broad spectrum antibiotic regimen w/ vancomycin and Zosyn * Dextrose-containing maintenance fluids initiated on admission, but have now been discontinued * Blood sugars reasonably controlled so far - will utilize conservative basal/bolus regimen for now PLAN FOR INPATIENT GLYCEMIC CONTROL: * Hold outpatient oral diabetes medications * Basal insulin * Lantus 10 units SQ daily * Bolus insulin * NovoLog per scale ACHS or Q6hrs while NPO * Goal Range: Low 120 mg/dL - High 150 mg/dL * Correction Factor: 30 mg/dL/unit * Nutritional / Prandial insulin per carb ratio of 1 unit per 9 grams CHO consumed
[2025-05-22 13:13] LABS: Hepatitis A Antibody IgM NON-REACTIVE (NON-REACTIVE); Hepatitis B Core Antibody IgM NON-REACTIVE (NON-REACTIVE)
--- NOTE | 2025-05-22 14:09 | Discharge Summary ---
Discharge Summary Date of Service May 22, 2025 Principal Dx & Hospital Course #1 = Principal Diagnosis (1) Sepsis: (2) Immunocompromised patient: (3) Elevated procalcitonin: (4) BPH without obstruction/lower urinary tract symptoms: Plan This patient is a 70-year-old male with a history of psoriatic arthritis on adalimumab, DM2, HTN, fatty liver, obesity, BPH s/p TURP, here with sepsis likely from acute prostatitis. #Sepsis/suspected acute prostatitis/UTI/acute metabolic encephalopathy-on admission was tachycardic, febrile, elevated procal 2.62 with elevated lactic 2.6 and an abnormal UA. He was seen in the ED on the prior evening for weakness and fall and thought to have pneumonia on CXR-was discharged on Azithro/Cefdinir. Presented again later that same day with weakness/confusion and hypoxia on admission requiring oxygen. CT chest with no pneumonia and only some atelectasis and possible pulmonary congestion. Bio fire respiratory panel negative. UA consistent with infection. Blood cultures remain no growth and unfortunately urine culture no growth but did receive antibiotics earlier in the day which may have sterilize the urine. It is also not uncommon for prostatitis to have a sterile urine culture. Lyme titer negative, anaplasmosis and babesiosis smear negative x [address] head negative. Now greatly improved with broad-spectrum antibiotics with Zosyn and vancomycin. Ddimer elevated but as he was no longer hypoxia/no pleuritic pain reported, venous Doppler upper extremity negative. CT angiogram chest not obtained. Blood cultures remained no growth on the day of discharge and he was feeling much improved, remained afebrile. Procalcitonin did go up slightly to 4 but clinically he was doing very well - He received broad-spectrum antibiotics with vancomycin and Zosyn but will discharge to home on oral Cipro for prostatitis to finish out a 10-day course - Follow blood cultures after discharge -Follow anaplasmosis and babesiosis PCR as well as hepatitis A which was still pending at the time of discharge #RUE IV infiltration-this occurred during his previous ED admission but does not seem consistent with cellulitis. Also his acute illness and fever were ongoing before this even happened. Doppler negative for DVT - Monitor and elevate, compression wrap - Some of the small blisters on the arm sloughed off prior to discharge-advised to keep clean and covered with antibiotic ointment and nonstick dressing until healed #Hypoxia -now resolved. Given obesity, question if has hypoventi lation/underlying IGLESIA. Biofire negative. Chest imaging CT w/ atelectasis, ?pulm edema -Should have outpatient sleep study #Elevated LFTs/thrombocytopenia-does have fatty liver on imaging. LFTs are continuing to be improving with treatment of sepsis. Thrombocytopenia could also be from sepsis and is also improving with resolution of sepsis. Anaplasmosis and babesiosis smears negative x 2, PCR is pending - Follow LFTs and CBC in 1 week as an outpatient - Follow-up babesiosis/anaplasmosis PCR as an outpatient when available #DM II- A1c 7.7 percent, on baseline mounjaro/metformin/Jardiance and has lost 100 pounds fairly recently -Pharmacy consulted for assistance w/ glycemic while inpatient -BSG's, DM2 diet and can resume home medications on discharge #HTN -BPs are normal, BUN/Cr stable, PO intake much improved -Holding home HCTZ/spironolactone but can resume on discharge - Continue home losartan #BPH s/p TURP-treating for prostatitis as above, has appointment with urology later this week #Hyponatremia -- appears acute on chronic in nature. Is on HCTZ/spironolactone at baseline, denies hx CHF. Sodium is now improved to 134 with hydration and holding diuretics. TSH checked and wnl. Cortisol AM acceptable - Sodium improved to normal at 137 on the day of discharge #Psoriatic arthritis-recommend holding home adalimumab until infection cleared for at least 1 more week DVT proph: SCDs, Lovenox SQ Dispo: Stable for discharge to home Notes For Next Care Provider Check CBC and CMP in 1 week Follow-up on anaplasmosis and babesiosis PCR as well as hepatitis A titer Medication Changes From Visit Added Cipro 500 mg p.o. twice daily x 7 more days Admission HPI Per Admitting Provider 70yo male presented for acute vague illness complaints last evening with body aches/cramping and ill feeling and provided 1L IVF and given azithromycin and discharged home. No new medication changes other than the antibiotics for pneumonia and reports was given azithromycin. Reports having had fevers at home but not taken his temperature, feeling ill, fatigued, muscle cramps/aches but no overt focal symptoms reported. in room reports patient had a fall yesterday, patient denies hitting head but fell onto his butt. She reports he has been "off" since , not acting his usual self. Reports headache but no vomiting along with poor PO intake. No meningeal signs or increased sx w/ bending neck or flexion of knees. He is on a biologic for psoriatic arthritis has been on for several months (6mo- 1yr per /patient), last dose 2 weeks ago and due this week. Reports history of diabetes - is on metformin, mounjaro, jardiance at baseline. Denies history of heart failure but is on losartan 100mg, spironolactone 25mg, HCTZ 25mg for HTN. No urinary symptoms reported. Denies overt abdominal pain but does have poor appetite. No recent ticks appreciated but has had in the past. Reports hx DVT but unclear if provoked or not but not on anticoagulation at baseline. Does have right arm wrapped in ALEX wrap from last evening -- reports has not been removed since placed in ER. Removed and has significant erythema/swelling along with slight lymphangitic streaking up his right upper extremity. Sensation intact, pulses present but appear slightly weak. [employer] strength intact bilaterally. Appears to have equal strength dorsiflexion/plantar flexion in bed but reporting was unable to support his upper body when EMS came to the house to assist in bringing him in. Discussed admission for empiric abx/further work up and therapy evaluations. Case discussed with Dr Renner and see attestation for further evaluation/recommendations. Full code Discharge Exam Constitutional WD/WN, vitals as above + obese Eyes + anicteric sclerae Respiratory normal respiratory effort, lungs clear to auscultation Cardiovascular RRR, no murmur, no edema Gastrointestinal (Abdomen) normal bowel sounds, soft, nontender, no hepatosplenomegaly Skin Right dorsal forearm with ecchymosis and a few small fluid-filled blisters, some sloughed off with exposed skin, no erythema or drainage Psychiatric A+Ox3, euthymic affect Discharge Plan Discharge Items Patient Disposition: Home - Self-Care Reason For Visit: SEPSIS, IMMUNOCOMPROMISED Discharge Diagnosis: Sepsis Suspected acute prostatitis Elevated liver function test Thrombocytopenia (low platelets) Condition on Discharge: Good Activity: As commented below Lifting: Gradually increase as tolerated Bathing: No limitations Exercise/Sports: Gradually increase as tolerated Driving/Machine Use: No limitations Non-emergency contact: Primary Care Provider Call non-emergency contact if: you have any medication questions, your symptoms worsen and your temperature is above 101 Follow-up/Referrals: Edgardo Frazier [Primary Care Provider] - 05/28/25 9:20 am (Follow up within 1-2 weeks) Diet: Carb Consistent or DM2 and Heart Healthy Addtl Attending Provider Instructions: Please finish out the course of antibiotics with ciprofloxacin twice a day for 1 more week. Please have your primary care physician check your liver blood tests and platelet count to make sure they continue to return towards normal in about 1 week. Please keep the open blister wounds on your right arm clean and then covered. You can either use a nonstick dressing or some antibiotic ointment with a dressing over top and change it daily. Pending Studies at Discharge: Yes (Anaplasmosis/babesiosis PCR, hepatitis C, final blood cultures) Stand-Alone Forms: My [facility] [place] [employer], Smoking Cessation Medications and DC Order Prescriptions: New ciprofloxacin HCl [Cipro] 500 mg tablet 500 mg PO BID Qty: 14 0RF Continued dutasteride 0.5 mg capsule 0.5 mg PO DAILY Qty: 90 3RF metformin 1,000 mg tablet 1,000 mg PO BID spironolacton-hydrochlorothiaz 25-25 mg tablet 1 tab PO DAILY Mounjaro 5 mg/0.5 mL pen injector 5 mg SUBCUT WK Jardiance 25 mg tablet 25 mg PO DAILY losartan 100 mg tablet 100 mg PO DAILY acidophilus-pectin, citrus 100 million cell-10 mg Capsule 1 tab PO DAILY cholecalciferol (vitamin D3) 25 mcg (1,000 unit) Tablet 25 mcg PO DAILY zinc gluconate 50 mg Tablet 50 mg PO DAILY B-complex with vitamin C Tablet 1 tab PO DAILY Hair,Skin and Nails(FA-biotin) 133.3 mcg- 1,666.7 mcg Capsule 1 cap PO DAILY Held Humira 40 mg/0.8 mL syringe kit 40 mg SQ Q14D Hold Instructions: Resume on 05/30/25. Discontinued azithromycin 250 mg tablet 0 mg PO DAILY Patient Comments: Looks to have been sent in on 05/19/25, unable to verify if pt started medication or not. Rx Instructions: start on day 2 of therapy cefdinir 300 mg capsule 0 mg PO BID Patient Comments: Looks to have been sent in on 05/19/25, unable to verify if pt started medication or not. Discharge Orders: Discharge Order (Routine); Ordered 05/22/25 Ordered By: Gypsy Ro/Other Patient Handouts: Managing Type 2 Diabetes Admission Data Admit Date/Time: 05/19/25 15:45 Attending Provider: Gypsy Dove Admit Provider: Lamonte Romero Primary Care Provider: Edgardo Frazier Other Providers: Lamonte Romero Other Interventions: Discharge Summary Assessment (RN) Last Done: 05/22/25 16:47 Hospital Stay Data Consultations 05/19/25 15:06 ED Decision to Admit Stat 05/19/25 16:03 HIM [Consult Health Information Management] Routine Diagnostic Imagining Performed 05/19/25 12:12 CT abd pelvis IV con only Stat CT chest diagnostic w con Stat 05/19/25 15:32 CT head/brain wo con Stat 05/19/25 18:04 US venous doppler UE RT Urgent Pending Results Patient Have Any Pending Studies at Discharge: Yes (Anaplasmosis/babesiosis PCR, hepatitis C, final blood cultures) Discharge Instructions Given to Patient (Per Discharging Provider) Please finish out the course of antibiotics with ciprofloxacin twice a day for 1 more week. Please have your primary care physician check your liver blood tests and platelet count to make sure they continue to return towards normal in about 1 week. Please keep the open blister wounds on your right arm clean and then covered. You can either use a nonstick dressing or some antibiotic ointment with a dressing over top and change it daily. Total Time Total Time Spent Total Time Spent (In Minutes): 35 minutes Total Time Includes: Examination of the Patient, Discharge Planning and Medication Reconciliation Coding Level of Care Code 65430 INP/OBS DISCH >30 MIN Diagnoses Sepsis A41.9 Immunocompromised patient D84.9 Elevated procalcitonin R79.89 BPH without obstruction/lower urinary tract symptoms N40.0
[2025-05-22 15:43] VITALS: PULSE 54; RESP 16; TEMP 98.2; O2SAT 95
[2025-05-22 15:47] VITALS: BP 120/66
== END 2025-05-22 16:32 | disposition home or self-care (01) | DRG 871 ==
LOC: ED 10:41 → 2S 15:45 → SUATTDRO 15:45 → 2S 17:57